=== PATIENT | female | born 1985 | race Caucasian/White ===

== ENCOUNTER 2023-12-04 16:21 | Emergency (ER) | payer MEDICARE, OTHER, SELFPAY ==
[2023-12-04 16:29] VITALS: BP 146/96
--- NOTE | 2023-12-04 19:31 | ED.GENMED ---
History of Present Illness
General
Chief Complaint: Skin Surface Trauma
Source: patient
Exam Limitations: none
Time Seen by Provider: 12/04/23 17:57
Nursing documentation reviewed up to this point in time: agreed with
History of Present Illness
History of Present Illness:
38 y/o F
h/o crohn's on prednisone
was closing a car door and sustained skin tear laceration to R lateral lower leg
she has chronic edema in her les from the steorids so it was weeping some
tetanus is unknonwn
went to urgent care and was told to come here b nancy the wound was too extensive
pt bernal not had any distal numbness/tingling/weakness
Past History
Past History
ED Past Medical History: Other (crohns, chronic anemia, narcotic abuse) and Other (Previous seizure from narcotic as well as from Wellbutrin withdrawal, Crohn's disease, anemia, previous small bowel obstruction,)
ED Past Surgical History: Appendectomy, Bowel resection ( X5) and Other (Hernia repair X2)
Social History
Tobacco: Former smoker
Alcohol: None
Drug: Former user (on suboxone)
Personal: Single
Living: with family
Employment: Not employed
Family History
Family History: Other (Crohn's disease)
Review of Systems
Review of Systems
Allergies reviewed?: Yes
All Other Systems: Not applicable
Phy Exam
Physical Exam
Physical Exam:
GENERAL: Alert , in no apparent distress, comfortable at rest
HEAD: NCAT
CV: 2+ DP PULSES B/L
NEUROLOGICAL: Alert and oriented, no focal neuro deficits, , 5/5 strength, sensation intact, ambulation slight limp right leg
SKIN: Warm and dry, traingular shaped skin tear laceration R lateral lower leg approx 5 cm
bleeidng controlled
visible subcutaneous fat, no muscle epxosure
MUSCULOSKELETAL: lateral R lower leg laceration
mild periph edema b/
onormal sensation and strenght
normal ankle ROM
PSYCH: Normal and appropriate interaction.
Course
Orders/Labs/Results
Orders:
Orders
12/04/23 19:34
Tetanus/Diphth/Acelpertussis [Adacel] 0.5 ml IM .ONCE ONE
Vital Signs
Initial and Last Documented VS:
Initial Vital Signs
Temp Pulse Resp BP Pulse Ox
98.3 F 112 20 146/96 99
12/04/23 16:29 12/04/23 16:29 12/04/23 16:29 12/04/23 16:29 12/04/23 16:29
Last Documented Vital Signs
Temp Pulse Resp BP Pulse Ox
98.3 F 84 18 124/82 98
12/04/23 16:29 12/04/23 19:51 12/04/23 19:51 12/04/23 19:51 12/04/23 19:51
Procedures
Laceration Closure
Right Lower Leg:
Status of Wound: clean
Description of Wound Edges: ragged and flap-poorly vascularized
Preparation: cleaned with saline
Anesthesia: 1% Lidocaine with epi
Revision/Debridement: routine- no revision
Wound exploration: explored to base- no FB and no tendon involvement
Type of Closure: layered closure
Skin Closure Material: 5-0 nylon and 5-0 vicryl
Number of sutures: 10
MDM/Problems Addressed
Differential Diagnosis Includes:
LACERATION, SKIN TEAR
MDM/Problems Addressed:
38 Y/O F
crohn's
chronic LE edema
skin tear R lower leg
subcutaneous fat exposed, some seeping
no muscle injury
was able to well approximate the flap which may or may not take because of the edema making the skin thin but bacitracin dressing applied
tetanus updated
return precautions
*Critical Care Note
Total Time (30-74mins, 75-104mins- exclusive of procedures): Not Applicable
ED Attending Note
-
Portions of this chart may have been created with voice recognition software.� Occasional wrong word or��sound alike� substitutions may have occurred due to the inherent limitations of voice recognition software.
Discharge Plan
Departure
Patient Disposition: Home (Routine Discharge)
Date of Disposition: 12/04/23
Time of Disposition: 19:33
Patient with high blood pressure during this ER visit?: No
Covid-19: Not Applicable
Discharge Problem:
Laceration of leg, right
Instructions: Laceration Repair With Stitches (DC)
Prescriptions:
No Action
prednisone 10 MG tablet
10 mg PO BID
nicotine 14 MG patch 24 hour
14 mg transdermal HS
Patient Comments:
patient changes patch every night
pantoprazole 40 MG tablet,delayed release (DR/EC)
40 mg PO DAILY
escitalopram oxalate 10 MG tablet
10 mg PO QPM
buprenorphine-naloxone 1 TAB tablet, sublingual
1.5 tab sublingual DAILY
Patient Comments:
03/31/2021: last filled 03/25/21, 45 tabs for 30 days from [facility]
calcium carbonate-vitamin D3 1 EACH tablet
1 ea PO DAILY Qty: 30 0RF
zolpidem 10 MG tablet
10 mg PO HSPRN PRN (Reason: sleep)
Patient Comments:
03/31/2021: unable to find fill on pdmp
cyanocobalamin (vitamin B-12) 1,000 MCG tablet
1,000 mcg PO DAILY
multivitamin with folic acid [Tab-A-Anna] 1 TABLET tablet
1 tab PO DAILY
medroxyprogesterone [Provera] 5 mg tablet
See Rx Instructions .ROUTE .COMPLEX Qty: 18 0RF
Rx Instructions:
5 mg orally ;take 1 tab by mouth 3 times a day for 3 days, then 1 tab by mouth 2 times a day for 3 days, then 1 tab by mouth once a day for 3 days for menstrual bleeding.
Referrals:
Petrona Chavarria MD [Family Provider] - Follow up in 10 days
Activity Restrictions/Additional Instructions:
KEEP THE WOUND CLEAN AND DRY FOR 24 HOURS
AFTER THAT YOU CAN GET IT WET IN THE BATH/SHOWER ONCE A DAY AND MAKE SURE IT IS CLEAN AND THERE IS NO DRIED BLOOD ON THE STITCHES
APPLY NEOSPORIN AND A BANDAID
THE STITCHES NEED TO BE REMOVED IN ABOUT 7-10 DAYS, SEE YOUR DOCTOR FOR THIS.
THE LAST DAY BEFORE STITCHES OUT, NO OINTMENT, LEAVE OPEN TO AIR
WATCH FOR SIGNS OF INFECTION AND RETURN NEEDED FOR PAIN, SWELLING, REDNESS, DRAINAGE, BLEEDING.
TYLENOL NEEDED FOR PAIN.
Interventions
Interventions:
*Risk Screen - Suicide Last Done: 12/04/23 16:32
*General Assessment Last Done: 12/04/23 16:32
*Neglect/Abuse Screening Last Done: 12/04/23 16:32
*ED COVID-19 Vaccine History Last Done: 12/04/23 17:00
*Nursing Disposition Last Done: 12/04/23 19:51
ED-Skin Assessment Last Done: 12/04/23 17:00
Discharge Date and Time
Discharge Date/Time: 12/04/23 19:53
Print Language: GUINEAN
[2023-12-04] MEDS: ADACEL 0.5 ML IM (19:41)
[2023-12-04 19:51] VITALS: BP 124/82
== END 2023-12-04 19:53 | disposition home or self-care (01) ==
LOC: EMR 16:21
PROVIDERS: EMERGENCY PHYSICIAN Emergency Medicine; FAMILY PHYSICIAN Family Medicine
DX: S81.811A Laceration without foreign body, right lower leg, initial encounter (principal); W22.8XXA Striking against or struck by other objects, initial encounter; Z23 Encounter for immunization; Z87.891 Personal history of nicotine dependence
CPT/HCPCS: 99282; 12002; 90471; 90715

== ENCOUNTER 2024-02-02 12:52 | Inpatient (IN) | payer MEDICARE, OTHER, SELFPAY ==
[2024-02-02] VITALS (7 sets, daily range): BP systolic 124–140; BP diastolic 78–86; BMI 23.0
[2024-02-02 10:45] LABS: HCG, Serum Qualitative Screen Negative
[2024-02-02 11:10] LABS: ALT (SGPT) 18 U/L (0-35); AST (SGOT) 20 U/L (14-36); Albumin 2.8 g/dl (3.5-5.0); Alkaline Phosphatase 44 U/L (38-126); Blood Urea Nitrogen 11 mg/dl (7-17); Calcium 5.7 mg/dl (8.4-10.2); Carbon Dioxide 25 mmol/L (22-30); Chloride 106 mmol/L (98-107); Glucose 149 mg/dl (70-99); Potassium 3.5 mmol/L (3.5-5.1); Sodium 136 mmol/L (135-145); Total Bilirubin 0.2 mg/dl (0.2-1.3); Total Protein 4.9 g/dl (6.3-8.2); eGFR > 60.00
[2024-02-02 11:26] LABS: % Basophils 0.3 % (0-2); % Eosinophils 0.6 % (0-6); % Immature Granulocytes 2.2 % (0-0.5); % Lymphocytes 4.8 % (20.5-51.1); % Monocytes 4.8 % (1.7-9.3); % Neutrophils 87.3 % (42.2-75.2); Absolute Eosinophils 0.1 10^3/uL (0-0.7); Absolute Immature Granulocytes 0.2 10^3/uL (0-0.05); Absolute Lymphocytes 0.4 10^3/uL (1.2-3.4); Absolute Monocytes 0.4 10^3/uL (0.1-0.6); Absolute Neutrophils 6.8 10^3/uL (1.4-6.5); Anisocytosis 2+; Hematocrit 29.6 % (37.0-47.0); Hemoglobin 8.9 g/dL (12.0-16.0); Mean Corp Hgb Conc. 30.1 g/dL (33.0-37.0); Mean Corpuscular Hgb 28.6 pg (27.0-31.0); Mean Corpuscular Volume 95.2 fL (81.0-99.0); Normal RBC Morphology No; Nucleated Red Blood Cells % 0 %; Platelet Count 240 10^3/uL (130-400); Red Blood Cell Count 3.11 10^6/uL (4.20-5.40); White Blood Cell Count 7.7 10^3/uL (4.8-10.8)
[2024-02-02 11:27] LABS: Ovalocytes 1+
[2024-02-02 11:28] LABS: Polychromasia 1+
[2024-02-02 11:54] LABS: Ionized Calcium 0.82 mMOL/L (1.15-1.33)
[2024-02-02 11:54] LABS: Magnesium 1.4 mg/dl (1.6-2.3); Phosphorus 0.8 mg/dl (2.5-4.5)
[2024-02-02] MEDS: CALCIUM GLUCONATE 100 IV (12:04)
--- NOTE | 2024-02-02 12:09 | ED.GENMED ---
History of Present Illness
General
Chief Complaint: Swelling
Source: patient
Time Seen by Provider: 02/02/24 10:49
History of Present Illness
History of Present Illness:
38-year-old female presenting to the emergency department for evaluation after she started experiencing bilateral lower extremity edema yesterday accompanied with diffuse body paresthesias and intermittent palpitations. Presently patient only notes
the edema and the paresthesias and palpitations are resolved. She does note that during the summertime her legs will often swell up a little bit but not as much as today. She denies any trauma. She is also denying any cough, chest pain, pleurisy,
hemoptysis, fevers or recent illnesses. Patient notes the only medication change she has had recently is recently started on an oral contraceptive. Patient takes Rinvoq and daily prednisone due to a history of Crohn's disease but notes no changes
to these medications. Patient also notes that she has been sober from substance abuse for 10 years.
Past History
Past History
ED Past Medical History: Other (crohns, chronic anemia, narcotic abuse) and Other (Previous seizure from narcotic as well as from Wellbutrin withdrawal, Crohn's disease, anemia, previous small bowel obstruction,)
ED Past Surgical History: Appendectomy, Bowel resection ( X5), Gynecological and Other (Hernia repair X2)
Social History
Tobacco: Former smoker
Alcohol: None
Drug: Former user (on suboxone)
Personal: Single
Living: with family
Employment: Not employed
Family History
Family History: Other (Crohn's disease)
Review of Systems
Review of Systems
All Other Systems: ROS reviewed and negative except as documented in HPI and ROS
Phy Exam
Physical Exam
Physical Exam:
GENERAL: Alert , in no apparent distress
EYE: clear conjunctiva b/l
HEAD: NCAT
ENT: o/p clr, mmm.
CARDIAC: Regular rate and rhythm, no murmur .
LUNGS: Clear breath sounds bilaterally, no acute respiratory distress, no wheezes/rales/rhonchi
ABDOMEN: Soft, without focal tenderness, no r/g, no cvat
NEUROLOGICAL: Alert and oriented
SKIN: Warm and dry, skin intact.
MUSCULOSKELETAL: 2+ pitting edema to the knees, well perfused.
PSYCH: Normal and appropriate interaction.
Scores
Heart Failure Risk
Heart Failure Risk Score: Not Applicable
Heart Score for Chest Pain Patients
STEMI patient?: Not applicable
Withdrawal Assessment of Alcohol
Withdrawal Assessment Completed?: Not applicable
Course
Orders/Labs/Results
Orders:
Orders
02/02/24 10:13
Test Result ONCE
02/02/24 10:14
EKG [Electrocardiogram (*1)] Urgent
Reason for Study: Palpitations
EKG- Treatment ONCE
02/02/24 10:23
CBC/With Diff [Complete Blood Count/With Diff] Urgent
Comprehensive Metabolic Panel Urgent
HCG, Serum Qualitative Screen Urgent
Magnesium Urgent
Comment: ADD ON
Phosphorus Urgent
Comment: ADD ON
TSH Urgent
02/02/24 11:21
Add On- LAB Urgent
Tests Added?: magnesium, phosphorous
02/02/24 11:44
Ionized Calcium Urgent
Peripheral Venous Lwr Ext Bilat US [US Periph Venous LOWER Ext Ritesh] Urgent
Comment:
Reason For Exam: edema
02/02/24 11:45
Calcium Gluconate 2 gram/100mL [Calcium Gluconate] 2 gram in 100 ml IV ONCE
02/02/24 11:46
NT-proBNP Urgent
02/02/24 12:08
Urinalysis Reflex To Culture Urgent
Date Specimen was Collected: 02/02/24
Time Specimen was Collected: 12:04
02/02/24 12:12
Magnesium Sulfate 1 G/D5w [Magnesium Sulfate] 1 gm in 100 ml IV NOW
02/02/24 12:32
Consult Nephrology [NEPHROLOGY CONSULT] Routine
Consulting Provider: Mika Clemente
Was physician already notified: Yes
Reason for consult: hypocalcemia, hypomag, phyophos, chron anemia
02/02/24 12:34
Admit/Transfer Patient As Directed
Co-Sign Provider:
Level of Care: Inpatient admission
Assign to:: Telemetry
Physician / Group: binu rose
Diagnosis: hypocalcemia, hypophos, hypomag, chron anemia
Reason for Telemetry: Arrhythmia
Date to Stop Telemetry: 02/05/24
Time to Stop Telemetry: 11:00
Reason for Hospitalization: hypocalcemia, hypophos, hypomag, chron anemia
Expected length of stay greater than two midnights?: Yes
ELOS- Estimated Length of Stay in days: 5
I certify the patient meets the requirements for IP care: Yes
Code Status As Directed
Resuscitation Status: Full Code
02/02/24 12:37
PRN Pain Medication Management As Directed
May give lesser potent ordered pain med per pt: Yes
preference::
Protocol:: Medication orders for pain may be administered in a
manner that supports deferring to patient preference
when the pt is:
- Requesting an ordered lesser potent pain medication.
Least to most potent pain medications are defined
as: acetaminophen < NSAID < tramadol < opioids
(morphine, oxycodone, hydromorphone).
- Requesting a lesser dose of the same medication IF
ORDERED.
- Requesting a less intrusive route of administration
if both routes are prescribed by the provider (PO <
IV).
02/02/24 14:10
Ondansetron Orally Disint [Zofran Odt (Orally Disintegrating)] 4 mg PO Q6HPRN PRN
02/02/24 14:10
Activity As Directed
Activity Level: As Tolerated
Intake/ Output As Directed
Frequency: Per unit guidelines
Vital Signs As Directed
Frequency: Per unit guidelines
Weight As Directed
Frequency: Daily
DX Deep Vein Thrombosis Video Routine
02/02/24 Dinner
Regular
At Your Request: Full Participation
Buprenorphine [Subutex] 0.5 mg SL DAILY@1500
02/02/24 18:00
Enoxaparin Sodium [Lovenox] 40 mg SC QPM
Escitalopram Oxalate [Lexapro] 10 mg PO QPM
02/02/24 20:00
Pantoprazole [Protonix] 40 mg PO BID
Prednisone [Deltasone] 5 mg PO BID
02/02/24 22:00
Nicotine [Nicoderm Transdermal] 14 mg TRANSDERM HS
norgestimate-ethinyl estradiol 1 tablet PO HS
upadacitinib [Rinvoq] See Dose Instructions PO HS
02/03/24 06:19
Complete Blood Count/With Diff IN AM
Comprehensive Metabolic Panel IN AM
Magnesium IN AM
Phosphorus IN AM
02/03/24 08:00
Buprenorphine [Subutex] 8 mg SL DAILY
Multivitamin [Theragran] 1 tablet PO DAILY
02/04/24 05:57
Complete Blood Count/With Diff IN AM
Comprehensive Metabolic Panel IN AM
Phosphorus IN AM
02/05/24 07:10
Complete Blood Count/With Diff IN AM
Comprehensive Metabolic Panel IN AM
02/05/24 11:00
DC Protocol for Telemetry ONCE
02/06/24 06:00
Complete Blood Count/With Diff IN AM
Comprehensive Metabolic Panel IN AM
02/07/24 06:00
Complete Blood Count/With Diff IN AM
Comprehensive Metabolic Panel IN AM
02/07/24 08:00
Ergocalciferol [Drisdol (Vitamin D2)] 50,000 units PO WE
02/25/24 08:00
Cyanocobalamin 1,000 mcg IM Q30D@0800
Abnormal Lab Results
02/02/24 02/02/24 02/02/24
10:23 11:44 12:08
RBC 3.11 L 10^6/uL
(4.20-5.40)
Hgb 8.9 L g/dL
(12.0-16.0)
Hct 29.6 L %
(37.0-47.0)
MCHC 30.1 L g/dL
(33.0-37.0)
Abs Immat Gran (auto) 0.2 H 10^3/uL
(0-0.05)
Absolute Neuts (auto) 6.8 H 10^3/uL
(1.4-6.5)
Absolute Lymphs (auto) 0.4 L 10^3/uL
(1.2-3.4)
Immature Gran % 2.2 H %
(0-0.5)
Neutrophils % 87.3 H %
(42.2-75.2)
Lymphocytes % 4.8 L %
(20.5-51.1)
Creatinine 0.4 L mg/dL
(0.6-1.0)
Glucose 149 H mg/dl
(70-99)
Calcium 5.7 L* mg/dl
(8.4-10.2)
Ionized Calcium 0.82 L mMOL/L
(1.15-1.33)
Phosphorus 0.8 L* mg/dl
(2.5-4.5)
Magnesium 1.4 L mg/dl
(1.6-2.3)
Total Protein 4.9 L g/dl
(6.3-8.2)
Albumin 2.8 L g/dl
(3.5-5.0)
PTH Intact 188.8 H pg/ml
(13.6-85.8)
Urine Glucose 1+ A
(Negative)
02/02/24 10:23
02/02/24 10:23
Vital Signs
Initial and Last Documented VS:
Initial Vital Signs
Temp Pulse Resp BP Pulse Ox
97.7 F 86 16 130/86 98
02/02/24 10:10 02/02/24 10:10 02/02/24 10:10 02/02/24 10:10 02/02/24 10:10
Last Documented Vital Signs
Temp Pulse Resp BP Pulse Ox
98.7 F 91 20 123/76 96
02/05/24 11:39 02/05/24 11:39 02/05/24 11:39 02/05/24 11:39 02/05/24 11:39
MDM/Problems Addressed
Differential Diagnosis Includes:
DVT considered given new OCP use, electrolyte derangement, cardiomyopathy,
MDM/Problems Addressed:
38-year-old female presenting to the emergency department for evaluation after noticing full body paresthesias yesterday, continued today as well as bilateral lower extremity edema. History of substance abuse but noted to be sober for 10 years.
Question cardiomyopathy as cause for edema. Question electrolyte disturbance for cause of diffuse body paresthesias. Patient is otherwise hemodynamically stable. Disposition pending.
*Pulse Oximetry
Patient hypoxic: no
*EKG
Interpreted by ED Provider?: Yes
Heart Rate: 78
Rate: normal
Rhythm: sinus
Beggs: normal axis
Ischemia: no ischemia
*Phlebotomy Director Interpretation
Rate: normal
Rhythm: sinus
*Critical Care Note
Total Time (30-74mins, 75-104mins- exclusive of procedures): 30
comment:
Critical care statement: A total of 30 minutes of critical care time was provided for this patient. This includes management of unstable vital signs, evaluation of the patient at bedside, reviewing the patient's pertinent medical records, discussion
with consultants, review of old EKGs and review of pertinent medical records. This time with separate from time utilized to perform the aforementioned documented procedures
Data Reviewed
Review of Other/Old Records Reveals: Labs and Records
Patient Management
Discussion with other providers: Hospitalist
Escalation/DeEscalation of care consider admission/obs:
Patient has a critical calcium of 5.7, phosphorus of 0.8 and magnesium of 1.4. Labs added including ionized calcium, parathyroid hormone, TSH, urinalysis. Ultrasound of the lower extremities pending. Hospitalist team accepts for continued
evaluation and treatment. IV magnesium and calcium repletion ordered.
ED Attending Note
-
Portions of this chart may have been created with voice recognition software.� Occasional wrong word or��sound alike� substitutions may have occurred due to the inherent limitations of voice recognition software.
Discharge Plan
Departure
Patient Disposition: Admit
Date of Disposition: 02/02/24
Time of Disposition: 12:09
Presentation/result/management discussed w/ accepting MD/DO: Hospitalist
Discharge Problem:
Hypocalcemia, Anemia, Hypomagnesemia, Hypophosphatemia
Interventions
Interventions:
*Risk Screen - Suicide Last Done: 02/02/24 10:10
*General Assessment Last Done: 02/02/24 10:10
*Neglect/Abuse Screening Last Done: 02/02/24 10:10
ED- Fall Risk Assessment Last Done: 02/02/24 11:16
*Nursing Disposition Last Done: 02/02/24 14:05
ED- Cardiac Assessment Last Done: 02/02/24 11:16
ED- Pulmonary Assessment Last Done: 02/02/24 11:16
ED-Skin Assessment Last Done: 02/02/24 11:16
Discharge Date and Time
Discharge Date/Time: 02/02/24 14:05
[2024-02-02 12:16] LABS: TSH 1.21 uIU/ml (0.47-4.68)
[2024-02-02 12:19] LABS: NT-proBNP 140 pg/ml
--- NOTE | 2024-02-02 12:29 | HPS.HSE ---
Family Physician
-
Family Physician: Petrona Chavarria
Chief Complaint
-
- b/l Alvarez sweliing for last 2 days
- pins and needle sensation every where
History of Present Illness
35F HX stricturing small bowel and colonic Crohn for years, s/p 5 small bowel resections known to Ken jernigan ([facility])
- b/l Alvarez swelling for last 2 days
- pins and needle sensation every where
- Fast HR at times
Medical History
Past Medical History
Past Medical History: Reports Other
Additional Past Medical History:
Crohn
Previous seizure from narcotic as well as from Wellbutrin withdrawal
Anemia
Past Surgical History: Reports Appendectomy and Bowel Resection ( Bowel resection ( X5))
Additional Past Surgical History:
Hernia repair X2
Social History
Tobacco: Former Smoker
Alcohol: None
Personal: Single
Living: With Family
Family History
Family History: Not pertinent
Allergies / Home Medications
Allergies reflects when Allergies were last updated in [facility].
Home Medications with original date entered in [facility]
Allergy/Medication List:
Allergies
Allergy/AdvReac Type Severity Reaction Status Date / Time
iron [From Venofer] Allergy Shortness Verified 02/02/24 10:09
of Breath
Home Medications
escitalopram oxalate 10 mg tablet 10 mg PO QPM Mental Health/Anxiety 04/18/20
nicotine 14 mg/24 hr daily transdermal patch 14 mg transdermal HS Smoking cessation 04/18/20
pantoprazole 40 mg tablet,delayed release 40 mg PO BID Gastrointestinal issue 04/18/20
prednisone 10 mg tablet 6 mg PO BID Crohn's disease 04/18/20
multivitamin with folic acid 400 mcg tablet (Tab-A-Anna) 1 tab PO DAILY Supplement 03/31/21
buprenorphine 8 mg-naloxone 2 mg sublingual tablet 0.5 tab sublingual DAILY@1500 02/02/24
buprenorphine 8 mg-naloxone 2 mg sublingual tablet 1 tab sublingual DAILY 02/02/24
cyanocobalamin (vitamin B-12) 1,000 mcg/mL injection solution 1,000 mcg IM QMONTH 02/02/24
ergocalciferol (vitamin D2) 1,250 mcg (50,000 unit) capsule (Vitamin D2) 1,250 mcg PO WE 02/02/24
norgestimate 0.25 mg-ethinyl estradiol 35 mcg tablet 1 tab PO HS 02/02/24
ondansetron 4 mg disintegrating tablet 4 mg PO Q6HPRN PRN nausea 02/02/24
upadacitinib 30 mg tablet,extended release 24 hr (Rinvoq) 30 mg PO HS 02/02/24
Review of Systems
-
Constitutional: Reports No Symptoms
EENT: Reports No Symptoms
Respiratory: Reports No Symptoms
Cardiac: Reports Palpitations
Abdomen/GI: Reports No Symptoms
: Reports No Symptoms
Musculoskeletal: Reports No Symptoms
Skin: Reports No Symptoms
Neurological: Reports Numbness (diffuse paresthesia )
Endocrine: Reports No Symptoms
Hematologic/Lymphatic: Reports No Symptoms
Psych: Reports No Symptoms
Physical Exam
Vital Signs
Vital Signs
Temp Pulse Resp BP Pulse Ox
97.7 F 83 21 131/83 97
02/02/24 10:10 02/02/24 11:45 02/02/24 11:45 02/02/24 11:14 02/02/24 11:45
Physical Exam
General: Well Developed, Well Nourished and No Apparent Distress
HEENT: NormoCephalic, Moist mucous membranes and Atraumatic
Respiratory: Clear
Cardiac: S1/S2 and Regular Rhythm; No Murmur or Rub
GI: Soft, Non Tender, Non Distended and Normal Bowel Sounds; No Organomegaly
Rectal: Deferred by Provider
Musculoskeletal: No Clubbing, No Cyanosis, Edema, Left Lower Extremity and Edema, Right Lower Extremity
Skin: No Rash
Neuro: AO x 3 and Nonfocal/grossly intact
Laboratory Results
-
02/02/24 10:23
02/02/24 10:23
Laboratory Results
Total Bilirubin 0.2 mg/dl (0.2-1.3) 02/02/24 10:23
AST 20 U/L (14-36) 02/02/24 10:23
ALT 18 U/L (0-35) 02/02/24 10:23
Alkaline Phosphatase 44 U/L (38-126) 02/02/24 10:23
Data Reviewed
-
Ultrasound: Other (pending Alvarez US )
Medical Tests (Nuc Med, Echo, EKG etc): Report Reviewed by me
Lab Data: Labs Reviewed by me
Old Records: Reviewed
Impression/Plan
-
Vital Signs
Temp Pulse Resp BP Pulse Ox
97.7 F 83 15 131/83 97
02/02/24 10:10 02/02/24 11:45 02/02/24 12:00 02/02/24 11:14 02/02/24 11:45
Laboratory Tests
02/02/24 02/02/24 02/02/24
10:23 11:44 11:46
WBC 7.7
MCV 95.2
Plt Count 240
Sodium 136
Potassium 3.5
Creatinine 0.4 L
eGFR > 60.00
Glucose 149 H
Calcium 5.7 L*
Ionized Calcium 0.82 L
Phosphorus 0.8 L*
Magnesium 1.4 L
Total Bilirubin 0.2
AST 20
ALT 18
Alkaline Phosphatase 44
[id number] Pept Pending
Albumin 2.8 L
TSH Pending
HCG, Qual Negative
PTH Intact Pending
EKG
NORMAL SINUS RHYTHM
NORMAL ECG
WHEN COMPARED WITH ECG OF 20-AUG-2021 15:42,
NO SIGNIFICANT CHANGE WAS FOUND
Confirmed by FRANCISCA COULTER JORGE ([id number]) on 02/02/2024 11:22:23 AM
Last hospitalist admission: DATE OF ADMISSION: 03/31/2021 - DATE OF DISCHARGE: 04/01/2021
DISCHARGE DIAGNOSIS:
1. Symptomatic anemia.
2. History of iron deficiency and B12 deficiency due to malabsorption.
3. History of Crohn's disease.
4. History of narcotic abuse, on Suboxone.
5. History of tobacco use.
ASSESSMENT & PLAN
Symptomatic Hypocalcemia s/p 2 gm of IV Calcium : Noted corrected Ca for Albumin 2.8 is 6.7
Hypophosphatemia
Hypomagnesemia s/p 1 gm pg IV Mg
Hypalbuminemia suspect GI loss
Associated diffuse paraesthesia
- suspect GI loss : ? malabsorption syndrome due to multiple SB small bowel resections due to Crohn
- Pending iPTH and TSH
- Correct Ca, Mg, Phos as needed
- Renal and GI consult
Chr normocytic Anemia
- stable Hgb at 8s
- Observe Hgb
b/l Alvarez swelling for last 2 days
- pending B/L Alvarez US
- Unremarkable pro BNP (140)
HX Crohn's stable on chronic prednisone and Rinovoq 30mg HS
GERD
- on PO PPI
Depression
- on Escitalopram 10mg qpm
Hx Former Narcotic Abuse
- on Suboxone
Hx Tobacco Use
DVT ppx with SCDs
Full code
IP TLM
[2024-02-02 12:37] LABS: Urine Albumin Negative (Neg - Trace); Urine Bilirubin Negative (Negative); Urine Character Clear (Clear); Urine Color Yellow; Urine Glucose 1+ (Negative); Urine Ketone Negative (Negative); Urine Leukocyte Negative (Negative); Urine Nitrite Negative (Negative); Urine Occult Blood Negative (Negative); Urine Urobilinogen Negative (Neg - 1+); Urine pH 6.5 (5.0-9.0)
[2024-02-02] MEDS: MAGNESIUM SULFATE 100 IV (13:19)
[2024-02-02] MEDS: SUBUTEX 4 MG SL (15:29)
[2024-02-02] MEDS: POTASSIUM PHOSPHATE 256.4773 MEQ IV (16:41)
--- NOTE | 2024-02-02 16:56 | W.CON.NEPH ---
Consultation
-
Date/Time Consultation Requested: 02/02/2024 at 12:30 PM
Date/Time Consultation Performed: at 4 PM
Requesting Provider: Tarah BERGER
Performing Provider: Dr. Mika Clemente
Reason for Consultation: electrolyte abnormalities
Medical History
-
Chief Complaint: electrolyte abnormalities lower extremity edema
History of Present Illness:
38-year-old female presenting to the emergency department for evaluation after she started experiencing bilateral lower extremity edema yesterday accompanied with diffuse body paresthesias and intermittent palpitations. She is found to have
significant electrolyte abnormalities including calcium of 5.7Phosphorus 0.8 and magnesium of 1.4
real consultation for these electrolyte abnormalities
she also complains of increased lower extremity edema in the last 48 hours which is never been like this in the past.
Recently in the last six months or so started rinvoq for her Crohn's disease
Past Medical History
Crohn's diseaseAnemia, multiple bowel resections , hernia repair
Social History
former smoker
Family History
no renal disease
Allergies / Home Medications
Allergy/AdvReac Type Severity Reaction Status Date / Time
iron [From Venofer] Allergy Shortness Verified 02/02/24 10:09
of Breath
�Medication �Instructions �Recorded �Confirmed �Type
escitalopram oxalate 10 mg tablet 10 mg PO QPM Mental Health/Anxiety 04/18/20 02/02/24 History
nicotine 14 mg/24 hr daily 14 mg transdermal HS Smoking 04/18/20 02/02/24 History
transdermal patch cessation
pantoprazole 40 mg tablet,delayed 40 mg PO BID Gastrointestinal issue 04/18/20 02/02/24 History
release
prednisone 10 mg tablet 6 mg PO BID Crohn's disease 04/18/20 02/02/24 History
multivitamin with folic acid 400 1 tab PO DAILY Supplement 03/31/21 02/02/24 History
mcg tablet (Tab-A-Anna)
buprenorphine 8 mg-naloxone 2 mg 0.5 tab sublingual DAILY@1500 02/02/24 02/02/24 History
sublingual tablet
buprenorphine 8 mg-naloxone 2 mg 1 tab sublingual DAILY 02/02/24 02/02/24 History
sublingual tablet
cyanocobalamin (vitamin B-12) 1,000 mcg IM QMONTH 02/02/24 02/02/24 History
1,000 mcg/mL injection solution
ergocalciferol (vitamin D2) 1,250 1,250 mcg PO WE 02/02/24 02/02/24 History
mcg (50,000 unit) capsule (Vitamin
D2)
norgestimate 0.25 mg-ethinyl 1 tab PO HS 02/02/24 02/02/24 History
estradiol 35 mcg tablet
ondansetron 4 mg disintegrating 4 mg PO Q6HPRN PRN nausea 02/02/24 02/02/24 History
tablet
upadacitinib 30 mg tablet,extended 30 mg PO HS 02/02/24 02/02/24 History
release 24 hr (Rinvoq)
Review of Systems
-
edema, numbness tingling of her extremities
All other systems: Negative unless noted
Physical Exam
Vital Signs
Vital Signs
Temp Pulse Resp BP Pulse Ox
97.8 F 79 18 140/85 99
02/02/24 14:22 02/02/24 14:22 02/02/24 14:22 02/02/24 14:22 02/02/24 14:22
Lab Results
WBC 7.7 10^3/uL (4.8-10.8) 02/02/24 10:23
RBC 3.11 10^6/uL (4.20-5.40) L 02/02/24 10:23
Hgb 8.9 g/dL (12.0-16.0) L 02/02/24 10:23
Hct 29.6 % (37.0-47.0) L 02/02/24 10:23
Plt Count 240 10^3/uL (130-400) 02/02/24 10:23
Sodium 136 mmol/L (135-145) 02/02/24 10:23
Potassium 3.5 mmol/L (3.5-5.1) 02/02/24 10:23
Chloride 106 mmol/L (98-107) 02/02/24 10:23
Carbon Dioxide 25 mmol/L (22-30) 02/02/24 10:23
BUN 11 mg/dl (7-17) 02/02/24 10:23
Creatinine 0.4 mg/dL (0.6-1.0) L 02/02/24 10:23
eGFR > 60.00 02/02/24 10:23
Glucose 149 mg/dl (70-99) H 02/02/24 10:23
Calcium Cancelled 02/02/24 11:21
Phosphorus 0.8 mg/dl (2.5-4.5) L* 02/02/24 10:23
Puu-Q-Iahtjvysqay Pept 140 pg/ml 02/02/24 11:46
Albumin 2.8 g/dl (3.5-5.0) L 02/02/24 10:23
Physical Exam
General no acute distress
HEENT no cephalic atraumatic extraocular muscle intact no scleral icterus no JVD neck supple
lungs clear to auscultation bilateral
heart regular S1-S2 positive
abdomen soft nontender positive bowel sounds
extremities +2 edema bilateral
Neurologically nonfocal alert and oriented x 3
Skin no lesions no abrasions no petechiae
Psych normal affect no bizarre behavior
Data Reviewed
-
Radiology: Image Personally Visualized and interpreted (No DVT lower extremity ultrasound)
Assessment/Plan
-
38-year-old female presenting to the emergency department for evaluation after she started experiencing bilateral lower extremity edema yesterday accompanied with diffuse body paresthesias and intermittent palpitations. She is found to have
significant electrolyte abnormalities including calcium of 5.7Phosphorus 0.8 and magnesium of 1.4
Recently in the last six months or so started rinvoq for her Crohn's disease
electrolyte abnormalities including hypokalemia
hypocalcemia=5.7 corrected to 6.7
hypoMag
acute lower extremity edema
Crohn's disease
hypoalbumin=2.8
plan:
Urinalysis negative for protein ruling out nephrotic syndrome
check the PTH, vitamin D
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
avoid Lasix at this time with lower extremity edema void further hypocalcemia
Sodium restriction in the setting of edema
[2024-02-02] MEDS: LEXAPRO 10 MG PO (17:27)
[2024-02-02] MEDS: PROTONIX 40 MG PO (20:09)
[2024-02-02] MEDS: DELTASONE 1 MG PO (20:09)
[2024-02-02] MEDS: DELTASONE 5 MG PO (20:09)
[2024-02-02] MEDS: NICODERM TRANSDERMAL 14 MG TRANSDERM (22:21)
[2024-02-03 03:20] VITALS: BP 111/61
[2024-02-03 07:15] LABS: % Basophils 0.4 % (0-2); % Eosinophils 1.2 % (0-6); % Immature Granulocytes 2.1 % (0-0.5); % Lymphocytes 8.1 % (20.5-51.1); % Monocytes 9.7 % (1.7-9.3); % Neutrophils 78.5 % (42.2-75.2); Absolute Eosinophils 0.1 10^3/uL (0-0.7); Absolute Immature Granulocytes 0.1 10^3/uL (0-0.05); Absolute Lymphocytes 0.4 10^3/uL (1.2-3.4); Absolute Monocytes 0.5 10^3/uL (0.1-0.6); Absolute Neutrophils 4.1 10^3/uL (1.4-6.5); Hematocrit 29.8 % (37.0-47.0); Hemoglobin 8.6 g/dL (12.0-16.0); Mean Corp Hgb Conc. 28.9 g/dL (33.0-37.0); Mean Corpuscular Hgb 27.6 pg (27.0-31.0); Mean Corpuscular Volume 95.5 fL (81.0-99.0); Nucleated Red Blood Cells % 0 %; Platelet Count 209 10^3/uL (130-400); Red Blood Cell Count 3.12 10^6/uL (4.20-5.40); Red Cell Dist. Width 25.9 % (11.5-14.5); White Blood Cell Count 5.2 10^3/uL (4.8-10.8)
[2024-02-03 07:16] LABS: ALT (SGPT) 15 U/L (0-35); AST (SGOT) 14 U/L (14-36); Albumin 2.5 g/dl (3.5-5.0); Alkaline Phosphatase 43 U/L (38-126); Blood Urea Nitrogen 7 mg/dl (7-17); Calcium 6.3 mg/dl (8.4-10.2); Carbon Dioxide 28 mmol/L (22-30); Chloride 108 mmol/L (98-107); Estimated Creatinine Clearance 100 ml/min; Glucose 97 mg/dl (70-99); Magnesium 1.9 mg/dl (1.6-2.3); Phosphorus 1.6 mg/dl (2.5-4.5); Potassium 3.9 mmol/L (3.5-5.1); Sodium 137 mmol/L (135-145); Total Bilirubin < 0.1 mg/dl (0.2-1.3); Total Protein 4.6 g/dl (6.3-8.2); eGFR > 60.00
[2024-02-03 07:21] LABS: Vitamin D, 25-OH*** < 12.8 ng/mL (30-80)
[2024-02-03 07:55] VITALS: BP 127/87
--- NOTE | 2024-02-03 08:00 | PTCARENOTE ---
Made Dr. Rai aware of pt's critical Calcium level this am of 6.3.
[2024-02-03] MEDS: THERAGRAN 1 TABLET PO (08:50)
[2024-02-03] MEDS: DELTASONE 1 MG PO ×2 (08:50→20:20)
[2024-02-03] MEDS: DELTASONE 5 MG PO ×2 (08:50→20:20)
[2024-02-03] MEDS: PROTONIX 40 MG PO ×2 (08:50→20:20)
[2024-02-03] MEDS: SUBUTEX 8 MG SL (08:50)
[2024-02-03 09:33] LABS: Intact PTH 265.6 pg/ml (13.6-85.8)
[2024-02-03 09:57] LABS: Intact PTH 188.8 pg/ml (13.6-85.8)
--- NOTE | 2024-02-03 10:13 | W.PN.NEPH.PH ---
Today's Communication / Plan
-
Added vitamin D and calcium carbonate p.o.
Assessment/Plan
-
38-year-old female presenting to the emergency department for evaluation after she started experiencing bilateral lower extremity edema yesterday accompanied with diffuse body paresthesias and intermittent palpitations. She is found to have
significant electrolyte abnormalities including calcium of 5.7Phosphorus 0.8 and magnesium of 1.4
Recently in the last six months or so started rinvoq for her Crohn's disease
electrolyte abnormalities including hypokalemia
hypocalcemia=5.7 corrected to 6.7
hypoMag
acute lower extremity edema
Crohn's disease
hypoalbumin=2.8
plan:
Urinalysis negative for protein ruling out nephrotic syndrome
check the PTH, vitamin D= PTH 265, vitamin D 25 OH less than 12, calcium improved corrected to 7.5 for albumin
avoid Lasix at this time with lower extremity edema void further hypocalcemia for now/minimal proteinuria not contributing to her hypoalbuminemia
Sodium restriction in the setting of edema
I will add vitamin D as well as calcium carbonate p.o. to be taken not with meals as this will lower phosphorus
-
-
Date of Service: February 03, 2024
CC / HPI / ROS
-
Chief Complaint:
Electrolyte abnormalities with lower extremity edema
History of Present Illness:
Presents with increasing lower extremity edema with history of chron's disease and electrolyte abnormalities
Review of Systems:
No chest pain or shortness of breath
Labs
-
Labs:
WBC 5.2 10^3/uL (4.8-10.8) 02/03/24 06:19
RBC 3.12 10^6/uL (4.20-5.40) L 02/03/24 06:19
Hgb 8.6 g/dL (12.0-16.0) L 02/03/24 06:19
Hct 29.8 % (37.0-47.0) L 02/03/24 06:19
Plt Count 209 10^3/uL (130-400) 02/03/24 06:19
Sodium 137 mmol/L (135-145) 02/03/24 06:19
Potassium 3.9 mmol/L (3.5-5.1) 02/03/24 06:19
Chloride 108 mmol/L (98-107) H 02/03/24 06:19
Carbon Dioxide 28 mmol/L (22-30) 02/03/24 06:19
BUN 7 mg/dl (7-17) 02/03/24 06:19
Creatinine 0.5 mg/dL (0.6-1.0) L 02/03/24 06:19
eGFR > 60.00 02/03/24 06:19
Glucose 97 mg/dl (70-99) 02/03/24 06:19
Calcium 6.3 mg/dl (8.4-10.2) L* 02/03/24 06:19
Calcium Cancelled 02/03/24 06:19
Phosphorus 1.6 mg/dl (2.5-4.5) L 02/03/24 06:19
Bcf-R-Xmuepchedhk Pept 140 pg/ml 02/02/24 11:46
Albumin 2.5 g/dl (3.5-5.0) L 02/03/24 06:19
Physical Exam
-
Vital Signs:
Vital Signs
Temp Pulse Resp BP Pulse Ox
98.1 F 79 16 127/87 97
02/03/24 07:55 02/03/24 07:55 02/03/24 07:55 02/03/24 07:55 02/03/24 07:55
Respiratory:: Bilateral: CTA
Lung Excursion:: Normal
Abdomen:: Soft
Bowel Sounds:: Normal
Extremity Edema:: +3: Bilateral:
Mireles Catheter: No
[2024-02-03 10:24] LABS: Ionized Calcium 0.95 mMOL/L (1.15-1.33)
[2024-02-03] MEDS: SODIUM PHOSPHATE 255 MEQ IV ×2 (10:32→18:53)
[2024-02-03] MEDS: CALCIUM GLUCONATE 1000 MG IV (10:33)
[2024-02-03] MEDS: FLUSH (NSS) 2 FLUSH IV (10:37)
[2024-02-03 10:52] VITALS: BMI 26.0
[2024-02-03 11:37] VITALS: BP 116/69
--- NOTE | 2024-02-03 14:50 | W.PN.HOSP.TC ---
Today's Communication/Plan
-
Electrolyte repletion
Vitamin D supplementation
Calcium carbonate p.o. with meals
Assessment / Plan
Assessment / Plan
General: Well Developed, Well Nourished and No Apparent Distress
HEENT: NormoCephalic, Moist mucous membranes and Atraumatic
Respiratory: Clear
Cardiac: S1/S2 and Regular Rhythm; No Murmur or Rub
GI: Soft, Non Tender, Non Distended and Normal Bowel Sounds; No Organomegaly
Rectal: Deferred by Provider
Musculoskeletal: No Clubbing, No Cyanosis, Edema, Left Lower Extremity and Edema, Right Lower Extremity
Skin: No Rash
Neuro: AO x 3 and Nonfocal/grossly intact
Symptomatic Hypocalcemia, associated diffuse paresthesia�improving, mostly resolved
#Hypophosphatemia
-Suspect secondary to vitamin D deficiency
� Electrolyte repletion
�Vitamin D supplementation
� Calcium carbonate p.o. with meals
� Follow-up PTH
� Avoid diuretics at this time due to hypocalcemia
� Renal involved
� Renal will take into consideration IV iron and possible secondary effects
#Lower extremity edema
� Sodium restriction
� Suspect secondary to low albumin state
� Urinalysis negative for protein ruling out nephrotic syndrome
� Educated on increasing protein intake
Hypomagnesemia
�Monitor and replete
Hypalbuminemia
� Most likely for torsion secondary to Crohn's
� Advised on increasing protein intake
Follow GI outpatient
Chr normocytic Anemia
- stable Hgb at 8s
- Observe Hgb
HX Crohn's stable on chronic prednisone and Rinovoq 30mg HS
GERD
- on PO PPI
Depression
- on Escitalopram 10mg qpm
Hx Former Narcotic Abuse
- on Suboxone
Hx Tobacco Use
DVT ppx with Lovenox
Full code
IP TLM
Anticipated Discharge: Within 24 hours
Subjective/Interval History
-
Date of Service: February 03, 2024
Tingling is improved
Objective Data
-
Labs:
Laboratory Results
02/03/24 02/03/24
06:19 06:19
WBC 5.2
Hgb 8.6 L
Hct 29.8 L
Plt Count 209
Sodium 137
Potassium 3.9
Chloride 108 H
Carbon Dioxide 28
BUN 7
Creatinine 0.5 L
Glucose 97
Calcium 6.3 L* Cancelled
Total Bilirubin < 0.1 L
AST 14
ALT 15
Alkaline Phosphatase 43
Vital Signs:
Vital Signs
Temp Pulse Resp BP Pulse Ox
98.4 F 84 16 116/69 97
02/03/24 11:37 02/03/24 11:37 02/03/24 11:37 02/03/24 11:37 02/03/24 11:37
I&O
02/02/24 02/03/24 02/04/24
06:59 06:59 06:59
Intake Total 480 / 480
Balance 480 / 480
Review of Systems
-
History Source: Patient
All other systems: Not reviewed unless documented
Data Reviewed
-
Ultrasound: Report Reviewed by me
Labs: Labs Reviewed by me
[2024-02-03] MEDS: DRISDOL (VITAMIN D2) 50000 UNITS PO (14:55)
[2024-02-03 15:30] VITALS: BP 125/76
[2024-02-03] MEDS: SUBUTEX 4 MG SL (16:14)
[2024-02-03 16:35] LABS: Phosphorus 1.7 mg/dl (2.5-4.5)
[2024-02-03] MEDS: LEXAPRO 10 MG PO (18:54)
[2024-02-03 19:29] VITALS: BP 111/59
[2024-02-03] MEDS: OSCAL CAL 500 1000 MG PO (20:20)
[2024-02-03] MEDS: TYLENOL 650 MG PO (20:23)
[2024-02-03] MEDS: NICODERM TRANSDERMAL 14 MG TRANSDERM (22:03)
[2024-02-03 23:57] VITALS: BP 119/67
[2024-02-04 01:13] LABS: Phosphorus 1.5 mg/dl (2.5-4.5)
[2024-02-04] MEDS: SODIUM PHOSPHATE 255 MEQ IV ×2 (02:33→10:21)
[2024-02-04 03:53] VITALS: BP 118/77
[2024-02-04 06:00] VITALS: BMI 25.7
[2024-02-04 07:48] LABS: ALT (SGPT) 15 U/L (0-35); AST (SGOT) 14 U/L (14-36); Albumin 2.6 g/dl (3.5-5.0); Alkaline Phosphatase 42 U/L (38-126); Blood Urea Nitrogen 9 mg/dl (7-17); Calcium 6.8 mg/dl (8.4-10.2); Carbon Dioxide 26 mmol/L (22-30); Chloride 105 mmol/L (98-107); Estimated Creatinine Clearance 100 ml/min; Glucose 96 mg/dl (70-99); Phosphorus 2.3 mg/dl (2.5-4.5); Potassium 4.1 mmol/L (3.5-5.1); Sodium 136 mmol/L (135-145); Total Bilirubin < 0.1 mg/dl (0.2-1.3); Total Protein 4.9 g/dl (6.3-8.2); eGFR > 60.00
[2024-02-04 07:55] VITALS: BP 123/78
[2024-02-04] MEDS: THERAGRAN 1 TABLET PO (08:04)
[2024-02-04] MEDS: DELTASONE 5 MG PO ×2 (08:04→19:23)
[2024-02-04] MEDS: OSCAL CAL 500 1000 MG PO ×2 (08:04→21:19)
[2024-02-04] MEDS: SUBUTEX 8 MG SL (08:04)
[2024-02-04] MEDS: DELTASONE 1 MG PO ×2 (08:04→19:23)
[2024-02-04] MEDS: PROTONIX 40 MG PO ×2 (08:04→19:23)
[2024-02-04 08:32] LABS: % Basophils 0.5 % (0-2); % Eosinophils 0.8 % (0-6); % Immature Granulocytes 2.7 % (0-0.5); % Lymphocytes 14.2 % (20.5-51.1); % Monocytes 9.7 % (1.7-9.3); % Neutrophils 72.1 % (42.2-75.2); Absolute Immature Granulocytes 0.1 10^3/uL (0-0.05); Absolute Lymphocytes 0.5 10^3/uL (1.2-3.4); Absolute Monocytes 0.4 10^3/uL (0.1-0.6); Absolute Neutrophils 2.7 10^3/uL (1.4-6.5); Hematocrit 31.6 % (37.0-47.0); Hemoglobin 9.2 g/dL (12.0-16.0); Mean Corp Hgb Conc. 29.1 g/dL (33.0-37.0); Mean Corpuscular Hgb 27.5 pg (27.0-31.0); Mean Corpuscular Volume 94.3 fL (81.0-99.0); Mean Platelet Volume 8.3 fL (7.4-10.4); Nucleated Red Blood Cells % 0 %; Platelet Count 257 10^3/uL (130-400); Red Blood Cell Count 3.35 10^6/uL (4.20-5.40); Red Cell Dist. Width 25.1 % (11.5-14.5); White Blood Cell Count 3.7 10^3/uL (4.8-10.8)
[2024-02-04] MEDS: CALCIUM GLUCONATE 1000 MG IV (10:22)
[2024-02-04 11:30] VITALS: BP 144/83
--- NOTE | 2024-02-04 11:46 | W.PN.NEPH.PH ---
Today's Communication / Plan
-
Continue electrolyte replacement
Can follow-up with me as an outpatient
Ergocalciferol twice a week for 4 weeks as well as a calcium carbonate
Assessment/Plan
-
38-year-old female presenting to the emergency department for evaluation after she started experiencing bilateral lower extremity edema yesterday accompanied with diffuse body paresthesias and intermittent palpitations. She is found to have
significant electrolyte abnormalities including calcium of 5.7Phosphorus 0.8 and magnesium of 1.4
Recently in the last six months or so started rinvoq for her Crohn's disease
electrolyte abnormalities including hypokalemia
hypocalcemia=5.7 corrected to 6.7
hypoMag
acute lower extremity edema
Crohn's disease
hypoalbumin=2.8
plan:
Urinalysis negative for protein ruling out nephrotic syndrome
check the PTH, vitamin D= PTH 265, vitamin D 25 OH less than 12, calcium improved corrected to 7.5 for albumin
avoid Lasix at this time with lower extremity edema void further hypocalcemia for now/minimal proteinuria not contributing to her hypoalbuminemia
Sodium restriction in the setting of edema> edema has improved without diuretic
vitamin D as well as calcium carbonate p.o. to be taken not with meals as this will lower phosphorus
The vitamin D ergocalciferol twice a week for 4 weeks as she is severely vitamin D deficient
As for the Injectafer as she just only about yesterday, it is very possible that this is the cause of her severe drop in phosphorus although severe vitamin D deficiency also can cause this. Having said that she has gotten the Injectafer in the past
without any issue
Continue to replete her electrolytes as ordered and I did tell her that she could follow-up with me in the office on discharge in a few weeks
-
-
Date of Service: February 04, 2024
CC / HPI / ROS
-
Chief Complaint:
Electrolyte abnormalities with lower extremity edema
History of Present Illness:
Presents with increasing lower extremity edema with history of chron's disease and electrolyte abnormalities
Review of Systems:
No chest pain or shortness of breath
Labs
-
Labs:
WBC 3.7 10^3/uL (4.8-10.8) L 02/04/24 05:57
RBC 3.35 10^6/uL (4.20-5.40) L 02/04/24 05:57
Hgb 9.2 g/dL (12.0-16.0) L 02/04/24 05:57
Hct 31.6 % (37.0-47.0) L 02/04/24 05:57
Plt Count 257 10^3/uL (130-400) D 02/04/24 05:57
Sodium 136 mmol/L (135-145) 02/04/24 05:57
Potassium 4.1 mmol/L (3.5-5.1) 02/04/24 05:57
Chloride 105 mmol/L (98-107) 02/04/24 05:57
Carbon Dioxide 26 mmol/L (22-30) 02/04/24 05:57
BUN 9 mg/dl (7-17) 02/04/24 05:57
Creatinine 0.5 mg/dL (0.6-1.0) L 02/04/24 05:57
eGFR > 60.00 02/04/24 05:57
Glucose 96 mg/dl (70-99) 02/04/24 05:57
Calcium 6.8 mg/dl (8.4-10.2) L* 02/04/24 05:57
Phosphorus 2.3 mg/dl (2.5-4.5) L 02/04/24 05:57
Akp-N-Qosirkmpfkh Pept 140 pg/ml 02/02/24 11:46
Albumin 2.6 g/dl (3.5-5.0) L 02/04/24 05:57
Physical Exam
-
Vital Signs:
Vital Signs
Temp Pulse Resp BP Pulse Ox
98.1 F 71 16 123/78 98
02/04/24 07:55 02/04/24 07:55 02/04/24 07:55 02/04/24 07:55 02/04/24 07:55
Respiratory:: Bilateral: CTA
Lung Excursion:: Normal
Abdomen:: Soft
Bowel Sounds:: Normal
Extremity Edema:: +1: Bilateral: (Edema has improved significantly)
Mireles Catheter: No
--- NOTE | 2024-02-04 13:35 | W.PN.HOSP.TC ---
Today's Communication/Plan
-
Electrolyte repletion
Continue calcium carbonate, ergocalciferol
Assessment / Plan
Assessment / Plan
General: Well Developed, Well Nourished and No Apparent Distress
HEENT: NormoCephalic, Moist mucous membranes and Atraumatic
Respiratory: Clear
Cardiac: S1/S2 and Regular Rhythm; No Murmur or Rub
GI: Soft, Non Tender, Non Distended and Normal Bowel Sounds; No Organomegaly
Rectal: Deferred by Provider
Musculoskeletal: No Clubbing, No Cyanosis, Edema, Left Lower Extremity and Edema, Right Lower Extremity
Skin: No Rash
Neuro: AO x 3 and Nonfocal/grossly intact
Symptomatic Hypocalcemia, associated diffuse paresthesia�improving, mostly resolved
#Hypophosphatemia
-Suspect secondary to vitamin D deficiency
� Electrolyte repletion
�Vitamin D supplementation
� Calcium carbonate p.o. with meals
-Ergocalciferol twice a week for 4 weeks as well as a calcium carbonate
� PTH v elevated
� Avoid diuretics at this time due to hypocalcemia
� Renal involved
� f/u renal outpatient
#Lower extremity edema
-improved
� Sodium restriction
� Suspect secondary to low albumin state
� Urinalysis negative for protein ruling out nephrotic syndrome
� Educated on increasing protein intake
Hypomagnesemia
�Monitor and replete
Hypalbuminemia
� Most likely for torsion secondary to Crohn's
� Advised on increasing protein intake
Follow GI outpatient
Chr normocytic Anemia
- stable Hgb
- Observe Hgb
HX Crohn's stable on chronic prednisone and Rinovoq 30mg HS
GERD
- on PO PPI
Depression
- on Escitalopram 10mg qpm
Hx Former Narcotic Abuse
- on Suboxone
Hx Tobacco Use
DVT ppx with Lovenox
Anticipated Discharge: Within 24 hours
Subjective/Interval History
-
Date of Service: February 04, 2024
No acute events overnight
Objective Data
-
Labs:
Laboratory Results
02/04/24
05:57
WBC 3.7 L
Hgb 9.2 L
Hct 31.6 L
Plt Count 257 D
Sodium 136
Potassium 4.1
Chloride 105
Carbon Dioxide 26
BUN 9
Creatinine 0.5 L
Glucose 96
Calcium 6.8 L*
Total Bilirubin < 0.1 L
AST 14
ALT 15
Alkaline Phosphatase 42
Vital Signs:
Vital Signs
Temp Pulse Resp BP Pulse Ox
98.0 F 92 16 144/83 98
02/04/24 11:30 02/04/24 11:30 02/04/24 11:30 02/04/24 11:30 02/04/24 11:30
I&O
02/03/24 02/04/24 02/05/24
06:59 06:59 06:59
Intake Total 480 / 480 1410 / 1410
Balance 480 / 480 1410 / 1410
Review of Systems
-
History Source: Patient
All other systems: Not reviewed unless documented
Data Reviewed
-
Labs: Labs Reviewed by me
[2024-02-04] MEDS: SUBUTEX 4 MG SL (14:07)
[2024-02-04] MEDS: NON-FORMULARY ITEM PO ×2 (14:53→14:54)
[2024-02-04 15:30] VITALS: BP 125/78
[2024-02-04] MEDS: LEXAPRO 10 MG PO (18:08)
[2024-02-04] MEDS: TYLENOL 650 MG PO (19:24)
[2024-02-04 19:50] VITALS: BP 114/80
[2024-02-04] MEDS: NICODERM TRANSDERMAL 14 MG TRANSDERM (21:17)
[2024-02-04] MEDS: NON-FORMULARY ITEM 30 MG PO (21:20)
[2024-02-04 23:40] VITALS: BP 133/87
[2024-02-05 03:24] VITALS: BP 132/75
[2024-02-05 06:00] VITALS: BMI 25.5
[2024-02-05 07:31] VITALS: BP 122/73
[2024-02-05 08:10] LABS: % Basophils 0.5 % (0-2); % Eosinophils 0.8 % (0-6); % Immature Granulocytes 3.6 % (0-0.5); % Lymphocytes 15.4 % (20.5-51.1); % Monocytes 9.9 % (1.7-9.3); % Neutrophils 69.8 % (42.2-75.2); Absolute Immature Granulocytes 0.1 10^3/uL (0-0.05); Absolute Lymphocytes 0.6 10^3/uL (1.2-3.4); Absolute Monocytes 0.4 10^3/uL (0.1-0.6); Absolute Neutrophils 2.5 10^3/uL (1.4-6.5); Hematocrit 34.7 % (37.0-47.0); Hemoglobin 10.1 g/dL (12.0-16.0); Mean Corp Hgb Conc. 29.1 g/dL (33.0-37.0); Mean Corpuscular Hgb 27.4 pg (27.0-31.0); Mean Corpuscular Volume 94.3 fL (81.0-99.0); Mean Platelet Volume 8.2 fL (7.4-10.4); Nucleated Red Blood Cells % 0 %; Platelet Count 262 10^3/uL (130-400); Red Blood Cell Count 3.68 10^6/uL (4.20-5.40); Red Cell Dist. Width 24.3 % (11.5-14.5); White Blood Cell Count 3.6 10^3/uL (4.8-10.8)
[2024-02-05 08:19] LABS: ALT (SGPT) 15 U/L (0-35); AST (SGOT) 14 U/L (14-36); Albumin 2.9 g/dl (3.5-5.0); Alkaline Phosphatase 46 U/L (38-126); Blood Urea Nitrogen 13 mg/dl (7-17); Calcium 7.4 mg/dl (8.4-10.2); Carbon Dioxide 26 mmol/L (22-30); Chloride 106 mmol/L (98-107); Estimated Creatinine Clearance 100 ml/min; Glucose 117 mg/dl (70-99); Magnesium 1.9 mg/dl (1.6-2.3); Phosphorus 1.5 mg/dl (2.5-4.5); Potassium 4.4 mmol/L (3.5-5.1); Sodium 138 mmol/L (135-145); Total Bilirubin 0.1 mg/dl (0.2-1.3); Total Protein 5.2 g/dl (6.3-8.2); eGFR > 60.00
[2024-02-05] MEDS: THERAGRAN 1 TABLET PO (09:20)
[2024-02-05] MEDS: PROTONIX 40 MG PO (09:20)
[2024-02-05] MEDS: DELTASONE 1 MG PO (09:20)
[2024-02-05] MEDS: SUBUTEX 8 MG SL (09:20)
[2024-02-05] MEDS: DELTASONE 5 MG PO (09:21)
[2024-02-05] MEDS: OSCAL CAL 500 1000 MG PO (09:21)
--- NOTE | 2024-02-05 09:37 | W.PN.HOSP.TC ---
Today's Communication/Plan
-
dc
Assessment / Plan
Assessment / Plan
PE:
General: Well Developed, Well Nourished and No Apparent Distress
HEENT: NormoCephalic, Moist mucous membranes and Atraumatic
Respiratory: Clear
Cardiac: S1/S2 and Regular Rhythm; No Murmur or Rub
GI: Soft, Non Tender, Non Distended and Normal Bowel Sounds; No Organomegaly
Rectal: No bleeding
Musculoskeletal: No Clubbing, No Cyanosis, Edema, Left Lower Extremity and Edema, Right Lower Extremity
Skin: No Rash
Neuro: AO x 3 and Nonfocal/grossly intact, she followed commands.
Psych, pleasant, calm.
Symptomatic Hypocalcemia, associated diffuse paresthesia�improving, mostly resolved
#Hypophosphatemia
-hypomagnesemia
-Suspect secondary to vitamin D deficiency
� Electrolyte repletion
�Vitamin D supplementation
� Calcium carbonate p.o. with meals
-Ergocalciferol twice a week for 4 weeks as well as a calcium carbonate
� PTH v elevated
� Avoid diuretics at this time due to hypocalcemia
� Renal involved
� f/u renal outpatient
#Lower extremity edema
-improved
� Sodium restriction
� Suspect secondary to low albumin state
� Urinalysis negative for protein ruling out nephrotic syndrome
� Educated on increasing protein intake
Hypomagnesemia
�Monitor and replete
Hypalbuminemia
� Most likely for torsion secondary to Crohn's
� Advised on increasing protein intake
to Follow GI outpatient
Chr normocytic Anemia
- stable Hgb
- Observe Hgb
HX Crohn's stable on chronic prednisone and Rinovoq 30mg HS
GERD
- on PO PPI
Depression
- on Escitalopram 10mg qpm
Hx Former Narcotic Abuse
- on Suboxone
Hx Tobacco Use
DVT ppx with Lovenox
Total discharge time spent to see the patient, examine the patient, review data and lab results, discuss the discharge plan with patient, emergency medcl emt, nursing staff around 65 minutes
Anticipated Discharge: Today
Subjective/Interval History
-
Date of Service: February 05, 2024
She feels better
eager to dc
Objective Data
-
Labs:
Laboratory Results
02/05/24
07:10
WBC 3.6 L
Hgb 10.1 L
Hct 34.7 L
Plt Count 262
Sodium 138
Potassium 4.4
Chloride 106
Carbon Dioxide 26
BUN 13
Creatinine 0.5 L
Glucose 117 H
Calcium 7.4 L
Total Bilirubin 0.1 L
AST 14
ALT 15
Alkaline Phosphatase 46
Vital Signs:
Vital Signs
Temp Pulse Resp BP Pulse Ox
99 F 80 20 122/73 98
02/05/24 07:31 02/05/24 07:31 02/05/24 07:31 02/05/24 07:31 02/05/24 07:31
I&O
02/04/24 02/05/24 02/06/24
06:59 06:59 06:59
Intake Total 1410 / 1410 900 / 900
Balance 1410 / 1410 900 / 900
[2024-02-05] MEDS: NEUTRA-PHOS POWDER PACKET 250 MG PO (10:37)
[2024-02-05 11:39] VITALS: BP 123/76
--- NOTE | 2024-02-05 13:36 | W.DCSUMMARY ---
Discharge Summary
Discharge Data
Date of Admission: 02/02/24
Date of Discharge: 02/05/24
-
Pending Results: No
Hospital Course
38 years old female presented to the emergency department for evaluation of bilateral lower extremity edema accompanied by diffuse body paresthesias. She was found to have significant electrolyte abnormalities including calcium of 5.7Phosphorus 0.8
and magnesium of 1.4. She was started Rinvoq for her Crohn's disease in recent months. Patient was given replacement therapy. She was evaluated by nephrology service and was found to have vitamin D deficiency. She started to feel better with
resolution of her symptoms. She tolerated diet. She was given a script for oral calcium, vitamin D and phosphate. She was advised to do blood work and follow with her doctors as instructed. She remained hemodynamically stable and was discharged in a
stable condition.
Discharge Plan
-
Patient Disposition: Home (Routine Discharge)
Discharge Diagnosis/Procedures: -Hypocalcemia
-Hypophosphatemia
-Hypomagnesemia
-Vitamin D deficiency
Repeat blood work, follow with kidney doctor for monitoring/questions.
Diet: As tolerated
Blood Work: Basic metabolic panel (BMP), phosphorus, magnesium in 3-4 days
Referrals:
Mika Clemente DO [Non-Admitting Privileges] - in two to three weeks
Petrona Chavarria MD [Family Provider] - in one to two weeks
Prescriptions:
New
ergocalciferol (vitamin D2) 1,250 mcg (50,000 unit) Capsule
50,000 unit PO Q7D Qty: 7 0RF
calcium carbonate 500 mg calcium (1,250 mg) Tablet
1,000 mg PO BID Qty: 120 0RF
Y-Vfrh-Ddtrljw 250 mg tablet
1 tab PO BID Qty: 60 0RF
Continued
prednisone 10 MG tablet
6 mg PO BID
nicotine 14 MG patch 24 hour
14 mg transdermal HS
Patient Comments:
patient changes patch every night
pantoprazole 40 MG tablet,delayed release (DR/EC)
40 mg PO BID
escitalopram oxalate 10 MG tablet
10 mg PO QPM
multivitamin with folic acid [Tab-A-Anna] 1 TABLET tablet
1 tab PO DAILY
norgestimate-ethinyl estradiol 0.25-35 mg-mcg tablet
1 tab PO HS
cyanocobalamin (vitamin B-12) 1,000 mcg/mL Solution
1,000 mcg IM QMONTH
ondansetron 4 mg Tablet,Disintegrating
4 mg PO Q6HPRN PRN (Reason: nausea)
buprenorphine-naloxone 8-2 mg Tablet, Sublingual
1 tab SUBLINGUAL DAILY
buprenorphine-naloxone 8-2 mg tablet, sublingual
0.5 tab SUBLINGUAL DAILY@1500
Rinvoq 30 mg Tablet Extended Release 24 Hr
30 mg PO HS
Discontinued
ergocalciferol (vitamin D2) [Vitamin D2] 1,250 mcg (50,000 unit) capsule
1,250 mcg PO WE
Discharge Orders:
Discharge Patient (As Directed); Ordered 02/05/24
Ordered By: Hilary Plaza
Discharge Date and Time
Print Language: ROMANIAN
--- NOTE | 2024-02-05 14:55 | CM ---
Alert awake oriented patient who lives with her parents and 2 children who lives in a 2 story home with 1 steps to enter and 14 to bed bathroom. She is independent in driving and in all activities of daily living.Offered VN she declined.
No adaptive devices
Never had VN/SNF
Pharmacy [facility]
PCP Dr Chavarria
PLAN Home no needs
[2024-02-05 16:53] LABS: Vitamin D 1,25 Dihydroxy 24.4 pg/mL (19.9-79.3)
== END 2024-02-05 12:45 | disposition home or self-care (01) | DRG 641 ==
LOC: 4 EAST ACU 12:52
PROVIDERS: Clinical Nurse Specialist Family Health; Internal Medicine; Physician Assistant Medical; ADMITTING PHYSICIAN Internal Medicine; ATTENDING PHYSICIAN Internal Medicine; CONSULT PHYSICIAN Internal Medicine Nephrology; EMERGENCY PHYSICIAN Emergency Medicine; FAMILY PHYSICIAN Family Medicine
DX: E55.9 Vitamin D deficiency, unspecified (principal); K50.90 Crohn's disease, unspecified, without complications; K90.9 Intestinal malabsorption, unspecified; D64.9 Anemia, unspecified; Z90.49 Acquired absence of other specified parts of digestive tract; Z87.891 Personal history of nicotine dependence; E87.6 Hypokalemia; F11.10 Opioid abuse, uncomplicated; F32.A Depression, unspecified; F41.9 Anxiety disorder, unspecified; K21.9 Gastro-esophageal reflux disease without esophagitis; Z79.52 Long term (current) use of systemic steroids; E88.09 Other disorders of plasma-protein metabolism, not elsewhere classified
CPT/HCPCS: 80053; 81003; 82306; 82330; 82652; 83735; 83880; 83970; 84100; 84443; 84703; 85025; 93005; 93970; 96365; 96375; 99291; 99406

== ENCOUNTER 2024-03-13 11:42 | Emergency (ER) | payer MEDICARE, OTHER, SELFPAY ==
[2024-03-13 12:09] VITALS: BP 140/95
[2024-03-13 12:57] LABS: % Basophils 0.4 % (0-2); % Eosinophils 0.2 % (0-6); % Immature Granulocytes 1.4 % (0-0.5); % Lymphocytes 6.3 % (20.5-51.1); % Monocytes 3.5 % (1.7-9.3); % Neutrophils 88.2 % (42.2-75.2); Absolute Immature Granulocytes 0.1 10^3/uL (0-0.05); Absolute Lymphocytes 0.5 10^3/uL (1.2-3.4); Absolute Monocytes 0.3 10^3/uL (0.1-0.6); Absolute Neutrophils 7.2 10^3/uL (1.4-6.5); Hematocrit 36.9 % (37.0-47.0); Hemoglobin 11.9 g/dL (12.0-16.0); Mean Corp Hgb Conc. 32.2 g/dL (33.0-37.0); Mean Corpuscular Hgb 29.9 pg (27.0-31.0); Mean Corpuscular Volume 92.7 fL (81.0-99.0); Nucleated Red Blood Cells % 0 %; Platelet Count 343 10^3/uL (130-400); Red Blood Cell Count 3.98 10^6/uL (4.20-5.40); Red Cell Dist. Width 13.8 % (11.5-14.5); White Blood Cell Count 8.1 10^3/uL (4.8-10.8)
[2024-03-13 12:57] LABS: Urine Albumin 1+ (Neg - Trace); Urine Bilirubin 1+ (Negative); Urine Character Clear (Clear); Urine Color Yellow; Urine Glucose Negative (Negative); Urine Ketone Negative (Negative); Urine Leukocyte 1+ (Negative); Urine Nitrite Negative (Negative); Urine Occult Blood Negative (Negative); Urine Urobilinogen Negative (Neg - 1+)
[2024-03-13 13:11] LABS: HCG, Serum Qualitative Screen Negative
[2024-03-13 13:11] LABS: Urine Bacteria Few (Negative); Urine Mucus Few; Urine Red Blood Cell 0-2 /HPF (0-2)
[2024-03-13 13:25] LABS: ALT (SGPT) 17 U/L (0-35); AST (SGOT) 21 U/L (14-36); Albumin 3.1 g/dl (3.5-5.0); Alkaline Phosphatase 81 U/L (38-126); Blood Urea Nitrogen 11 mg/dl (7-17); Calcium 8.5 mg/dl (8.4-10.2); Carbon Dioxide 21 mmol/L (22-30); Chloride 104 mmol/L (98-107); Glucose 152 mg/dl (70-99); Potassium 3.8 mmol/L (3.5-5.1); Sodium 134 mmol/L (135-145); Total Bilirubin < 0.1 mg/dl (0.2-1.3); Total Protein 5.6 g/dl (6.3-8.2); eGFR > 60.00
[2024-03-13 14:30] VITALS: BP 143/87
[2024-03-13 17:25] VITALS: BP 126/91
--- NOTE | 2024-03-13 18:24 | ED.GENMED ---
History of Present Illness
General
Chief Complaint: Back Pain
Source: patient
Time Seen by Provider: 03/13/24 18:03
History of Present Illness
History of Present Illness:
This a 38-year-old female with a history of Crohn's disease who presents with left low back pain. The patient states that in the past she has had some electrolyte imbalances. She states the pain is clearly worse when she moves. She does state
that it came on relatively acutely but has just persisted in the same spot. No dysuria. No hematuria. No fevers. No radiation down the legs. No abdominal pain.
Past History
Past History
ED Past Medical History: Other (crohns, chronic anemia, narcotic abuse) and Other (Previous seizure from narcotic as well as from Wellbutrin withdrawal, Crohn's disease, anemia, previous small bowel obstruction,)
ED Past Surgical History: Appendectomy, Bowel resection ( X5), Gynecological and Other (Hernia repair X2)
Social History
Tobacco: Former smoker
Alcohol: None
Drug: Former user (on suboxone)
Personal: Single
Living: with family
Employment: Not employed
Family History
Family History: Other (Crohn's disease)
Phy Exam
Physical Exam
Physical Exam:
CONSTITUTIONAL Vital signs reviewed, Patient alert and oriented to person, place and time. Well-appearing
HEAD atraumatic, normocephalic.
EYES eyelids normal to inspection, Extraocular muscles intact, Conjunctiva normal, Sclera normal.
NECK normal range of motion, Trachea midline, no jugular venous distention.
RESP no respiratory distress
BACK No obvious deformities, moderate tenderness noted to the left paraspinal lumbar region. No midline tenderness. No CVA tenderness. Negative straight leg raise
UPPER EXTREMITY Gross Range of motion normal, gross motor strength normal
LOWER EXTREMITY Gross range of motion normal, Gross motor strength normal
NEURO Speech normal, No focal motor deficits include, Ozzy coma scale 15, Memory normal, Cranial Nerves intact to screening exam.
SKIN Skin warm, dry, and normal in color.
PSYCHIATRIC Patient oriented to person place and time, Normal affect.
Course
Orders/Labs/Results
Orders:
Orders
03/13/24 12:12
Test Result ONCE
03/13/24 12:18
Complete Blood Count/With Diff Urgent
Comprehensive Metabolic Panel Urgent
HCG, Serum Qualitative Screen Urgent
Magnesium Urgent
Comment: ADD ON
Phosphorus Urgent
Comment: ADD ON
03/13/24 12:24
Urinalysis Reflex To Culture Urgent
Date Specimen was Collected: 03/13/24
Time Specimen was Collected: 12:12
Urine Microscopic Reflex Cult Urgent
Urine Culture Urgent
[place] Source: U
Specimen Description:
Date Specimen was Collected: 03/13/24
Time Specimen was Collected: 12:12
03/13/24 18:03
Add On- LAB Urgent
Tests Added?: Mg
03/13/24 18:14
Add On- LAB Urgent
Tests Added?: phosphorus
Abnormal Lab Results
03/13/24 03/13/24
12:18 12:24
RBC 3.98 L 10^6/uL
(4.20-5.40)
Hgb 11.9 L g/dL
(12.0-16.0)
Hct 36.9 L %
(37.0-47.0)
MCHC 32.2 L g/dL
(33.0-37.0)
Abs Immat Gran (auto) 0.1 H 10^3/uL
(0-0.05)
Absolute Neuts (auto) 7.2 H 10^3/uL
(1.4-6.5)
Absolute Lymphs (auto) 0.5 L 10^3/uL
(1.2-3.4)
Immature Gran % 1.4 H %
(0-0.5)
Neutrophils % 88.2 H %
(42.2-75.2)
Lymphocytes % 6.3 L %
(20.5-51.1)
Sodium 134 L mmol/L
(135-145)
Carbon Dioxide 21 L mmol/L
(22-30)
Glucose 152 H mg/dl
(70-99)
Phosphorus 2.0 L mg/dl
(2.5-4.5)
Total Bilirubin < 0.1 L mg/dl
(0.2-1.3)
Total Protein 5.6 L g/dl
(6.3-8.2)
Albumin 3.1 L g/dl
(3.5-5.0)
Urine Bilirubin 1+ A
(Negative)
Leukocyte Esterase Rfl 1+ A
(Negative)
Urine Bacteria (Reflex) Few A
(Negative)
Urine Albumin (Reflex) 1+ A
(Neg - Trace)
03/13/24 12:18
03/13/24 12:18
Vital Signs
Initial and Last Documented VS:
Initial Vital Signs
Temp Pulse Resp BP Pulse Ox
98.7 F 91 18 140/95 97
03/13/24 12:09 03/13/24 12:09 03/13/24 12:03/13/24 12:03/13/24 12:09
Last Documented Vital Signs
Temp Pulse Resp BP Pulse Ox
98.7 F 107 20 126/91 97
03/13/24 12:09 03/13/24 17:25 03/13/24 17:25 03/13/24 17:03/13/24 17:25
MDM/Problems Addressed
MDM/Problems Addressed:
Low back pain
*Pulse Oximetry
Patient hypoxic: no
*Critical Care Note
Total Time (30-74mins, 75-104mins- exclusive of procedures): Not Applicable
Data Reviewed
Review of Other/Old Records Reveals: Labs (Prior labs reviewed revealing hypomagnesemia and other electrolyte imbalances)
Source: patient
Further Testing Considered But Not Given:
Consider imaging but no falls no midline bony tenderness.
Patient Management
Escalation/DeEscalation of care consider admission/obs:
Pain clearly worse when she moves. Okay for discharge and outpatient follow-up. No concern for fracture. Labs grossly unremarkable and nearing baseline but I did advise her to have outpatient follow-up regarding her labs.
ED Attending Note
-
Portions of this chart may have been created with voice recognition software.� Occasional wrong word or��sound alike� substitutions may have occurred due to the inherent limitations of voice recognition software.
Discharge Plan
Departure
Patient Disposition: Home (Routine Discharge)
Date of Disposition: 03/13/24
Time of Disposition: 18:25
Patient with high blood pressure during this ER visit?: Yes
Discharge Problem:
Back pain
Instructions: Low Back Pain (DC), BLOOD PRESSURE
Prescriptions:
No Action
prednisone 10 MG tablet
6 mg PO BID
nicotine 14 MG patch 24 hour
14 mg transdermal HS
Patient Comments:
patient changes patch every night
pantoprazole 40 MG tablet,delayed release (DR/EC)
40 mg PO BID
escitalopram oxalate 10 MG tablet
10 mg PO QPM
multivitamin with folic acid [Tab-A-Anna] 1 TABLET tablet
1 tab PO DAILY
norgestimate-ethinyl estradiol 0.25-35 mg-mcg tablet
1 tab PO HS
cyanocobalamin (vitamin B-12) 1,000 mcg/mL Solution
1,000 mcg IM QMONTH
ondansetron 4 mg Tablet,Disintegrating
4 mg PO Q6HPRN PRN (Reason: nausea)
buprenorphine-naloxone 8-2 mg Tablet, Sublingual
1 tab SUBLINGUAL DAILY
buprenorphine-naloxone 8-2 mg tablet, sublingual
0.5 tab SUBLINGUAL DAILY@1500
Rinvoq 30 mg Tablet Extended Release 24 Hr
30 mg PO HS
ergocalciferol (vitamin D2) 1,250 mcg (50,000 unit) Capsule
50,000 unit PO Q7D Qty: 7 0RF
calcium carbonate 500 mg calcium (1,250 mg) Tablet
1,000 mg PO BID Qty: 120 0RF
L-Uwcx-Fybppod 250 mg tablet
1 tab PO BID Qty: 60 0RF
Referrals:
Petrona Chavarria MD [Family Provider] -
Activity Restrictions/Additional Instructions:
Continue your Tylenol. You may use Celebrex as needed. Apply warm compresses as discussed. Please see your doctor in the next 3 to 5 days for follow-up and reevaluation
Interventions
Interventions:
*Risk Screen - Suicide Last Done: 03/13/24 12:09
*General Assessment Last Done: 03/13/24 12:09
*Neglect/Abuse Screening Last Done: 03/13/24 12:09
*ED COVID-19 Vaccine History Last Done: 03/13/24 19:02
*Nursing Disposition Last Done: 03/13/24 19:16
ED-Musculoskeletal Assessment Last Done: 03/13/24 18:30
Discharge Date and Time
Discharge Date/Time: 03/13/24 19:17
Print Language: MICRONESIAN
[2024-03-13 18:36] LABS: Magnesium 1.7 mg/dl (1.6-2.3)
== END 2024-03-13 19:17 | disposition home or self-care (01) ==
LOC: EMR 11:42
PROVIDERS: Emergency Medicine; EMERGENCY PHYSICIAN Emergency Medicine; FAMILY PHYSICIAN Family Medicine
DX: M54.50 Low back pain, unspecified (principal); Z87.891 Personal history of nicotine dependence; Z90.49 Acquired absence of other specified parts of digestive tract; Z87.19 Personal history of other diseases of the digestive system
CPT/HCPCS: 99283; 80053; 81003; 81015; 83735; 84100; 84703; 85025; 87086

== ENCOUNTER 2024-03-24 15:02 | Emergency (ER) | payer MEDICARE, OTHER, SELFPAY ==
[2024-03-24 15:05] VITALS: BP 127/90
[2024-03-24 15:30] LABS: % Basophils 0.5 % (0-2); % Eosinophils 0.8 % (0-6); % Immature Granulocytes 3.4 % (0-0.5); % Lymphocytes 7.4 % (20.5-51.1); % Neutrophils 78.9 % (42.2-75.2); Absolute Eosinophils 0.1 10^3/uL (0-0.7); Absolute Immature Granulocytes 0.2 10^3/uL (0-0.05); Absolute Lymphocytes 0.5 10^3/uL (1.2-3.4); Absolute Monocytes 0.6 10^3/uL (0.1-0.6); Absolute Neutrophils 4.9 10^3/uL (1.4-6.5); Hemoglobin 11.5 g/dL (12.0-16.0); Mean Corp Hgb Conc. 32.9 g/dL (33.0-37.0); Mean Corpuscular Volume 91.4 fL (81.0-99.0); Nucleated Red Blood Cells % 0 %; Platelet Count 327 10^3/uL (130-400); Red Blood Cell Count 3.83 10^6/uL (4.20-5.40); Red Cell Dist. Width 13.3 % (11.5-14.5); White Blood Cell Count 6.2 10^3/uL (4.8-10.8)
[2024-03-24 15:32] LABS: Urine Albumin 2+ (Neg - Trace); Urine Bilirubin 2+ (Negative); Urine Character Clear (Clear); Urine Color Yellow; Urine Glucose Negative (Negative); Urine Ketone 1+ (Negative); Urine Leukocyte 2+ (Negative); Urine Nitrite Negative (Negative); Urine Occult Blood Negative (Negative); Urine Urobilinogen 1+ (Neg - 1+)
[2024-03-24 15:50] LABS: HCG, Serum Qualitative Screen Negative
[2024-03-24 15:52] LABS: ALT (SGPT) 18 U/L (0-35); AST (SGOT) 20 U/L (14-36); Albumin 3.1 g/dl (3.5-5.0); Alkaline Phosphatase 86 U/L (38-126); Blood Urea Nitrogen 11 mg/dl (7-17); Calcium 8.4 mg/dl (8.4-10.2); Carbon Dioxide 25 mmol/L (22-30); Chloride 102 mmol/L (98-107); Glucose 128 mg/dl (70-99); Potassium 3.3 mmol/L (3.5-5.1); Sodium 134 mmol/L (135-145); Total Bilirubin 0.4 mg/dl (0.2-1.3); Total Protein 5.5 g/dl (6.3-8.2); eGFR > 60.00
[2024-03-24 16:07] VITALS: BMI 23.0
[2024-03-24 16:09] LABS: Urine Calcium Oxalate Crystals Seen; Urine Squamous Cell 16-20 /LPF (Few)
--- NOTE | 2024-03-24 16:40 | ED.GENMED ---
History of Present Illness
<Adele Rodney, COIL REPAIR TECHNICIAN - Last Filed: 03/25/24 12:10>
General
Chief Complaint: Back Pain
Source: patient
Exam Limitations: none
Time Seen by Provider: 03/24/24 16:31
Nursing documentation reviewed up to this point in time: agreed with
History of Present Illness
History of Present Illness:
38 yo female w h/o Crohn's disease on Prednisone 10 mg daily (five colon resections, last one 7 yrs ago), anemia, is here for left lower back pain and a 'mass' on lower back just to the left of the spine.
Was evaluated here on 03/13 for left lower back pain, has been taking Ibuprofen, Flexeril, heating pad, states this is the same pain and getting worse.
She is afraid the mass on her lower back is a tumor making the pain worse.
Denies fever/chills. Denies loss of control of bowel or bladder. Denies saddle numbness or weakness in legs.
Pain is aggravated when she sits and with certain movements.
Denies CP, SOB, abdominal pain. Denies n/v/d/c. Denies UTI symptoms.
Past History
<Adele Rodney, COIL REPAIR TECHNICIAN - Last Filed: 03/25/24 12:10>
Past History
ED Past Medical History: Other (crohns, chronic anemia, narcotic abuse) and Other (Previous seizure from narcotic as well as from Wellbutrin withdrawal, Crohn's disease, anemia, previous small bowel obstruction,)
ED Past Surgical History: Appendectomy, Bowel resection ( X5 due to Crohn's), Gynecological and Other (Hernia repair X2)
Social History
Tobacco: Former smoker
Alcohol: None
Drug: Former user (on suboxone)
Personal: Single
Living: with family
Employment: Not employed
Family History
Family History: Other (Crohn's disease)
Review of Systems
<Adele Rodney, COIL REPAIR TECHNICIAN - Last Filed: 03/25/24 12:10>
Review of Systems
Allergies reviewed?: Yes
All Other Systems: ROS reviewed and negative except as documented in HPI and ROS
Constitutional: Denies fever or chills
Respiratory: Denies trouble breathing
Cardiac: Denies chest pain
ABD/GI: Denies abdominal pain, nausea, vomiting, diarrhea or constipated
: Denies dysuria, frequency, incontinence, difficulty voiding or urgency
Musculoskeletal: Reports back pain
Skin: Reports other (mass of skin left lower back )
Neurological: Reports no symptoms
Phy Exam
<Adele Rodney, COIL REPAIR TECHNICIAN - Last Filed: 03/25/24 12:10>
Physical Exam
Physical Exam:
GENERAL: No acute distress. A&Ox3.
CONSTITUTIONAL: Afebrile.
RESPIRATORY: Regular respirations, nonlabored, lungs clear.
CARDIOVASCULAR: Regular rate and rhythm, no murmurs, no rubs.
GI: Soft, nontender, normal BS
MUSCULOSKELETAL: Mildly tender to palpation of approx 5 x 6 cm spongy, irregular shape, soft mass just to the left of L4-5 best palpated with pt sitting up, leaning slightly forward. No spinal bony tenderness. No pain with rotation of torso.
Flexing forward to 45 degrees aggravates pain L lower back. No pain with bilateral SLR. Full ROM of lower extremities. Moves with ease. Well perfused.
SKIN: Warm, dry, pink
PSYCH: Normal mood and affect. Well kept, interactive and appropriate
NEUROLOGIC: Awake, alert and oriented. No focal neurological deficits. Strength 5/5 throughout. Patellar reflexes equal. Ambulating with normal gait.
Course
<Adele Rodney, COIL REPAIR TECHNICIAN - Last Filed: 03/25/24 12:10>
Orders/Labs/Results
Orders:
Orders
03/24/24 15:09
Test Result ONCE
03/24/24 15:15
Complete Blood Count/With Diff Urgent
Comprehensive Metabolic Panel Urgent
HCG, Serum Qualitative Screen Urgent
Urinalysis Reflex To Culture Urgent
Date Specimen was Collected: 03/24/24
Time Specimen was Collected: 15:09
Urine Microscopic Reflex Cult Urgent
Urine Culture Urgent
[place] Source: U
Specimen Description:
Date Specimen was Collected: 03/24/24
Time Specimen was Collected: 15:09
03/24/24 16:43
CT Abd/pel Without Iv Or Oral Urgent
Comment:
Reason For Exam: left flank pain
Abnormal Lab Results
03/24/24
15:15
RBC 3.83 L 10^6/uL
(4.20-5.40)
Hgb 11.5 L g/dL
(12.0-16.0)
Hct 35.0 L %
(37.0-47.0)
MCHC 32.9 L g/dL
(33.0-37.0)
Abs Immat Gran (auto) 0.2 H 10^3/uL
(0-0.05)
Absolute Lymphs (auto) 0.5 L 10^3/uL
(1.2-3.4)
Immature Gran % 3.4 H %
(0-0.5)
Neutrophils % 78.9 H %
(42.2-75.2)
Lymphocytes % 7.4 L %
(20.5-51.1)
Sodium 134 L mmol/L
(135-145)
Potassium 3.3 L mmol/L
(3.5-5.1)
Glucose 128 H mg/dl
(70-99)
Total Protein 5.5 L g/dl
(6.3-8.2)
Albumin 3.1 L g/dl
(3.5-5.0)
Urine Ketones 1+ A
(Negative)
Urine Bilirubin 2+ A
(Negative)
Leukocyte Esterase Rfl 2+ A
(Negative)
Urine RBC 11-15 A /HPF
(0-2)
Urine Albumin (Reflex) 2+ A
(Neg - Trace)
03/24/24 15:15
03/24/24 15:15
Vital Signs
Initial and Last Documented VS:
Initial Vital Signs
Temp Pulse Resp BP Pulse Ox
97.9 F 108 16 127/90 97
03/24/24 15:05 03/24/24 15:05 03/24/24 15:05 03/24/24 15:05 03/24/24 15:05
Last Documented Vital Signs
Temp Pulse Resp BP Pulse Ox
97.9 F 108 16 127/90 97
03/24/24 15:05 03/24/24 15:05 03/24/24 15:05 03/24/24 15:05 03/24/24 15:05
<Toni Kebede MD - Last Filed: 03/24/24 18:50>
Orders/Labs/Results
Orders:
Orders
03/24/24 15:09
Test Result ONCE
03/24/24 15:15
Complete Blood Count/With Diff Urgent
Comprehensive Metabolic Panel Urgent
HCG, Serum Qualitative Screen Urgent
Urinalysis Reflex To Culture Urgent
Date Specimen was Collected: 03/24/24
Time Specimen was Collected: 15:09
Urine Microscopic Reflex Cult Urgent
Urine Culture Urgent
[place] Source: U
Specimen Description:
Date Specimen was Collected: 03/24/24
Time Specimen was Collected: 15:09
03/24/24 16:43
CT Abd/pel Without Iv Or Oral Urgent
Comment:
Reason For Exam: left flank pain
Abnormal Lab Results
03/24/24
15:15
RBC 3.83 L 10^6/uL
(4.20-5.40)
Hgb 11.5 L g/dL
(12.0-16.0)
Hct 35.0 L %
(37.0-47.0)
MCHC 32.9 L g/dL
(33.0-37.0)
Abs Immat Gran (auto) 0.2 H 10^3/uL
(0-0.05)
Absolute Lymphs (auto) 0.5 L 10^3/uL
(1.2-3.4)
Immature Gran % 3.4 H %
(0-0.5)
Neutrophils % 78.9 H %
(42.2-75.2)
Lymphocytes % 7.4 L %
(20.5-51.1)
Sodium 134 L mmol/L
(135-145)
Potassium 3.3 L mmol/L
(3.5-5.1)
Glucose 128 H mg/dl
(70-99)
Total Protein 5.5 L g/dl
(6.3-8.2)
Albumin 3.1 L g/dl
(3.5-5.0)
Urine Ketones 1+ A
(Negative)
Urine Bilirubin 2+ A
(Negative)
Leukocyte Esterase Rfl 2+ A
(Negative)
Urine RBC 11-15 A /HPF
(0-2)
Urine Albumin (Reflex) 2+ A
(Neg - Trace)
03/24/24 15:15
03/24/24 15:15
Vital Signs
Initial and Last Documented VS:
Initial Vital Signs
Temp Pulse Resp BP Pulse Ox
97.9 F 108 16 127/90 97
03/24/24 15:05 03/24/24 15:05 03/24/24 15:05 03/24/24 15:05 03/24/24 15:05
Last Documented Vital Signs
Temp Pulse Resp BP Pulse Ox
97.9 F 108 16 127/90 97
03/24/24 15:05 03/24/24 15:05 03/24/24 15:05 03/24/24 15:05 03/24/24 15:05
<Adele Rodney COIL REPAIR TECHNICIAN - Last Filed: 03/25/24 12:10>
MDM/Problems Addressed
Differential Diagnosis Includes:
L lower back mass: fatty lipoma
Lumbar sprain/strain, sciatica
MDM/Problems Addressed:
38 yo female w h/o Crohn's disease on Prednisone 10 mg daily (five colon resections, last one 7 yrs ago), anemia, is here for left lower back pain and a 'mass' on lower back just to the left of the spine.
Was evaluated here on 03/13 for left lower back pain, has been taking Ibuprofen, Flexeril, heating pad, states this is the same pain and getting worse.
She is afraid the mass on her lower back is a tumor making the pain worse.
Denies fever/chills. Denies loss of control of bowel or bladder. Denies saddle numbness or weakness in legs.
Pain is aggravated when she sits and with certain movements.
Denies CP, SOB, abdominal pain. Denies n/v/d/c. Denies UTI symptoms.
Case discussed with Dr. Kebede who agrees plain CT scan will give good look at spine and soft tissue.
03/25/24 12:00 p.m.
Pt called and informed of constipation on CT scan. She does take stool softeners but will try Miralax or Dulcolax and see if having 1-2 BMs helps her back pain.
<Adele Rodney COIL REPAIR TECHNICIAN - Last Filed: 03/25/24 12:10>
*Critical Care Note
Total Time (30-74mins, 75-104mins- exclusive of procedures): Not Applicable
ED Attending Note
<Adele Rodney NP - Last Filed: 03/25/24 12:10>
-
Portions of this chart may have been created with voice recognition software.� Occasional wrong word or��sound alike� substitutions may have occurred due to the inherent limitations of voice recognition software.
<Toni Kebede MD - Last Filed: 03/24/24 18:50>
ED Attending Note
Patient seen and examined by attending physician: Yes
I performed the substantive portion of visit, reviewed & personally made and approve the management plan that is documented in note by myself or PRUDENCIO.: Yes
ED Attending Note:
Complaining of ongoing low back pain she also noted a lump in her left lower back. No neurologic symptoms.
On exam patient is nontoxic in no distress. Warm and dry. Perfusing well. The area the patient points to the swelling I do not appreciate any lump or lipoma. She has no spinal tenderness. She is in no distress. CT scan is stable. Labs are
stable. For discharge to follow-up urinalysis is contaminated. No pain with urination
Discharge Plan
Departure
Patient Disposition: Home (Routine Discharge)
Date of Disposition: 03/24/24
Time of Disposition: 18:50
Patient with high blood pressure during this ER visit?: Yes
Discharge Problem:
Lipoma of back, Low back pain radiating to left leg, Sciatica of left side
Instructions: Low Back Pain (DC), Sciatica (DC), Lipoma, BLOOD PRESSURE
Prescriptions:
No Action
prednisone 10 MG tablet
6 mg PO BID
nicotine 14 MG patch 24 hour
14 mg transdermal HS
Patient Comments:
patient changes patch every night
pantoprazole 40 MG tablet,delayed release (DR/EC)
40 mg PO BID
escitalopram oxalate 10 MG tablet
10 mg PO QPM
multivitamin with folic acid [Tab-A-Anna] 1 TABLET tablet
1 tab PO DAILY
norgestimate-ethinyl estradiol 0.25-35 mg-mcg tablet
1 tab PO HS
cyanocobalamin (vitamin B-12) 1,000 mcg/mL Solution
1,000 mcg IM QMONTH
ondansetron 4 mg Tablet,Disintegrating
4 mg PO Q6HPRN PRN (Reason: nausea)
buprenorphine-naloxone 8-2 mg Tablet, Sublingual
1 tab SUBLINGUAL DAILY
buprenorphine-naloxone 8-2 mg tablet, sublingual
0.5 tab SUBLINGUAL DAILY@1500
Rinvoq 30 mg Tablet Extended Release 24 Hr
30 mg PO HS
ergocalciferol (vitamin D2) 1,250 mcg (50,000 unit) Capsule
50,000 unit PO Q7D Qty: 7 0RF
calcium carbonate 500 mg calcium (1,250 mg) Tablet
1,000 mg PO BID Qty: 120 0RF
C-Ioyb-Ibecenx 250 mg tablet
1 tab PO BID Qty: 60 0RF
Referrals:
Petrona Chavarria MD [Family Provider] - Call in 1-3 days for appt
Isidro Leal MD [Active] - As needed
Activity Restrictions/Additional Instructions:
As we discussed, increase your Prednisone to 40 mg daily for 4 days then go back to 10 mg daily.
Continue your heating pad since it helps
I have provided you the contact information for a general surgeon if you decide you want the mass/lipoma on your lower back removed.
Interventions
Interventions:
*Risk Screen - Suicide Last Done: 03/24/24 15:08
*General Assessment Last Done: 03/24/24 16:07
*Neglect/Abuse Screening Last Done: 03/24/24 15:08
ED- Fall Risk Assessment Last Done: 03/24/24 16:08
*ED COVID-19 Vaccine History Last Done: 03/24/24 16:07
*Nursing Disposition Last Done: 03/24/24 19:12
ED-Musculoskeletal Assessment Last Done: 03/24/24 16:08
Discharge Date and Time
Discharge Date/Time: 03/24/24 19:12
Print Language: CANADIAN
== END 2024-03-24 19:12 | disposition home or self-care (01) ==
LOC: EMR 15:02
PROVIDERS: Emergency Medicine; EMERGENCY PHYSICIAN Emergency Medicine; FAMILY PHYSICIAN Family Medicine
DX: D17.1 Benign lipomatous neoplasm of skin and subcutaneous tissue of trunk (principal); M54.42 Lumbago with sciatica, left side; K50.10 Crohn's disease of large intestine without complications; D64.9 Anemia, unspecified; Z83.79 Family history of other diseases of the digestive system; Z87.891 Personal history of nicotine dependence; Z90.49 Acquired absence of other specified parts of digestive tract
CPT/HCPCS: 99284; 74176; 80053; 81003; 81015; 84703; 85025; 87086

== ENCOUNTER 2024-08-06 22:07 | Inpatient (IN) | payer MEDICARE, OTHER, SELFPAY ==
[2024-08-06] VITALS (12 sets, daily range): BP systolic 111–145; BP diastolic 71–86; BMI 24.7; BMI 24.5
[2024-08-06 14:24] LABS: % Basophils 0.2 % (0-2); % Eosinophils 0.4 % (0-6); % Immature Granulocytes 1.9 % (0-0.5); % Lymphocytes 2.7 % (20.5-51.1); % Monocytes 5.4 % (1.7-9.3); % Neutrophils 89.4 % (42.2-75.2); Absolute Immature Granulocytes 0.2 10^3/uL (0-0.05); Absolute Lymphocytes 0.3 10^3/uL (1.2-3.4); Absolute Monocytes 0.5 10^3/uL (0.1-0.6); Absolute Neutrophils 8.4 10^3/uL (1.4-6.5); Hematocrit 22.5 % (37.0-47.0); Hemoglobin 6.8 g/dL (12.0-16.0); Mean Corp Hgb Conc. 30.2 g/dL (33.0-37.0); Mean Corpuscular Hgb 29.2 pg (27.0-31.0); Mean Corpuscular Volume 96.6 fL (81.0-99.0); Mean Platelet Volume 8.5 fL (7.4-10.4); Nucleated Red Blood Cells % 1.1 %; Platelet Count 313 10^3/uL (130-400); Red Blood Cell Count 2.33 10^6/uL (4.20-5.40); Red Cell Dist. Width 23.8 % (11.5-14.5); White Blood Cell Count 9.4 10^3/uL (4.8-10.8)
[2024-08-06 14:37] LABS: Anisocytosis 1+; Hypochromasia 1+; Normal RBC Morphology No; Polychromasia 1+
[2024-08-06 14:43] LABS: NT-proBNP 772 pg/ml
[2024-08-06 16:38] LABS: ALT (SGPT) 16 U/L (0-35); AST (SGOT) 17 U/L (14-36); Albumin 2.2 g/dl (3.5-5.0); Alkaline Phosphatase 46 U/L (38-126); Blood Urea Nitrogen 17 mg/dl (7-17); Calcium 7.4 mg/dl (8.4-10.2); Carbon Dioxide 20 mmol/L (22-30); Chloride 117 mmol/L (98-107); Glucose 115 mg/dl (70-99); Potassium 3.9 mmol/L (3.5-5.1); Sodium 137 mmol/L (135-145); Total Bilirubin 0.2 mg/dl (0.2-1.3); Total Protein 4.2 g/dl (6.3-8.2); eGFR > 60.00
--- NOTE | 2024-08-06 18:57 | ED.GENMED ---
History of Present Illness
General
Chief Complaint: Swelling
Source: patient
Exam Limitations: none
Time Seen by Provider: 08/06/24 18:26
Nursing documentation reviewed up to this point in time: agreed with
History of Present Illness
History of Present Illness:
Patient is a 38-year-old female with history of Crohn's since age 11 on RINVOQ and prednisone, 5 mg twice daily. She reports 8 days ago she had an iron transfusion and started with increasing lower extremity swelling. She has some degree of
chronic leg swelling but the swelling is far worse than normal. She started Lasix 20 mg twice daily on Monday 6 days ago without improvement.
She is followed by nephrology here at [facility] as well as have fire watchman at [facility] Dr. Luis and Dr. Russ for her anemia. Patient also complains of redness and swelling to right middle finger
No injury. No fevers. She does not feel short of breath she just complains of difficulty walking because of the swelling.
Past History
Past History
ED Past Medical History: Other (crohns, chronic anemia, narcotic abuse) and Other (Previous seizure from narcotic as well as from Wellbutrin withdrawal, Crohn's disease, anemia, previous small bowel obstruction,)
ED Past Surgical History: Appendectomy, Bowel resection ( X5 due to Crohn's), Gynecological and Other (Hernia repair X2)
Social History
Tobacco: Former smoker
Alcohol: None
Drug: Former user (on suboxone)
Personal: Single
Living: with family
Employment: Not employed
Family History
Family History: Other (Crohn's disease)
Review of Systems
Review of Systems
Allergies reviewed?: Yes
All Other Systems: ROS reviewed and negative except as documented in HPI and ROS
Phy Exam
General Physical Exam
General Presentation: no apparent distress
General age: appears stated age
General Skin: warm and dry
General Habitus: normal
General Mental: alert
General Hydration: appears well hydrated
Cardiovascular Exam
Cardiovascular Exam: regular rate/rhythm, no murmur and normal peripheral pulses
Pulmonary Exam
Pulmonary Exam: lungs clear and no respiratory distress
Neurological Exam
Neurological Exam: alert and oriented x3
Musculoskeletal Exam
Musculoskeletal Exam: other (pitting edema to bilateral lower extremities; right middle finger swollen at the PIP and MTP joint minimally red good ROM )
Skin Exam
Skin Exam: normal color and warm/dry
Psychiatric Exam
Psychiatric Exam: normal mood/affect
Course
Orders/Labs/Results
Orders:
Orders
08/06/24 Breakfast
Sodium, 2 Gram
08/06/24 14:02
Finger(s)/Thumb 2 View Rt [CR Finger(s)/thumb Min 2 Vw Rt] Urgent
Comment:
Reason For Exam: injury/ swelling to r middle finger
Indicate Which Finger:: Middle Finger
08/06/24 14:07
CBC/With Diff [Complete Blood Count/With Diff] Urgent
CMP [Comprehensive Metabolic Panel] Urgent
Ferritin Urgent
Comment: ADD ON
Folate Urgent
Comment: ADD ON
Iron Urgent
Comment: ADD ON
Pro-BNP [NT-proBNP] Urgent
Total Iron Binding Urgent
Comment: ADD ON
Vitamin B12 Urgent
Comment: ADD ON
08/06/24 18:53
Type And Crossmatch [Type+Screen] Urgent
08/06/24 19:22
* Blood Bank Products Urgent
'angie Orders: nicole
Blood Bank Products: *Packed RBC Leuko(PRBC's)
Quantity: 2
Transfuse Today: Yes
Reason: Anemia
Comment: obtained
08/06/24 19:23
IV Insert/Care/Rem.- Treatment PRN
08/06/24 20:42
Add On- LAB Urgent
Tests Added?: iron, ferritin, tibc, folate, vit b12
08/06/24 21:21
Admit/Transfer Patient As Directed
Co-Sign Provider:
Level of Care: Inpatient admission
Assign to:: Medical/Surgical
Physician / Group: Htay
Diagnosis: Anemia, Lower Extremity Edema
Reason for Hospitalization: blood transfusion
Expected length of stay greater than two midnights?: Yes
ELOS- Estimated Length of Stay in days: 3
I certify the patient meets the requirements for IP care: Yes
Urinalysis Urgent
08/06/24 21:22
PRN Pain Medication Management As Directed
May give lesser potent ordered pain med per pt: Yes
preference::
Protocol:: Medication orders for pain may be administered in a
manner that supports deferring to patient preference
when the pt is:
- Requesting an ordered lesser potent pain medication.
Least to most potent pain medications are defined
as: acetaminophen < NSAID < tramadol < opioids
(morphine, oxycodone, hydromorphone).
- Requesting a lesser dose of the same medication IF
ORDERED.
- Requesting a less intrusive route of administration
if both routes are prescribed by the provider (PO <
IV).
08/06/24 21:24
Code Status As Directed
Resuscitation Status: Full Code
08/06/24 22:00
Flush (0.9% Sodium Chloride) [Flush (Nss)] See Dose Instructions IV PER PROTOCOL
08/06/24 22:52
Acetaminophen [Tylenol] 650 mg PO Q4HPRN PRN
Calcitonin,[place] [Miacalcin/Fortical Nasal [place]] See Dose Instructions NASAL HS
norgestimate-ethinyl estradiol See Dose Instructions PO HS
upadacitinib [Rinvoq] See Dose Instructions PO HS
08/06/24 22:52
Echo 2D MMode Color/Doppler Routine
Reason for Study: lower extremity edema
Activity As Directed
Activity Level: Out of Bed-Early Mobility
With Assistance
Hemetest Stools As Directed
Comment: Notify Physician of any positive results; May Stop if Negative x 3
I&O [Intake/ Output] As Directed
Frequency: q12h
Sequential Compression Device [Pneumatic Compression Sleeves] As Directed
Type: Thigh high
Vital Signs As Directed
Frequency: Per unit guidelines
Weight As Directed
Frequency: Daily
DX Deep Vein Thrombosis Video Routine
08/06/24 23:00
Furosemide [Lasix] 20 mg IV ONCE ONE
Magnesium Oxide 500 mg PO HS
08/07/24 06:00
Basic Metabolic Panel IN AM
Complete Blood Count/No Diff IN AM
Magnesium IN AM
Phosphorus IN AM
08/07/24 08:00
Buprenorphine [Subutex] 4 mg SL TID@0800,1200,1600
Calcium Carbonate [Oscal Delfino 500] 1,000 mg PO BID
Cholecalciferol (Vitamin D3) [VITAMIN D3 (cholecalciferol)] 125 mcg PO BID
Furosemide [Lasix] 20 mg PO DAILY
Multivitamin [Theragran] 1 tablet PO DAILY
Nicotine [Nicoderm Transdermal] 7 mg TRANSDERM Q24H
Pantoprazole [Protonix] 40 mg PO DAILY
Prednisone [Deltasone] 5 mg PO BID
Sodium/Potassium Phosphate Mix [Neutra-Phos Powder Packet] 1 mg PO BID
08/07/24 18:00
Escitalopram Oxalate [Lexapro] 10 mg PO QPM
Abnormal Lab Results
08/06/24 08/06/24
14:07 18:53
RBC 2.33 L 10^6/uL
(4.20-5.40)
Hgb 6.8 L* g/dL
(12.0-16.0)
Hct 22.5 L %
(37.0-47.0)
MCHC 30.2 L g/dL
(33.0-37.0)
RDW 23.8 H %
(11.5-14.5)
Abs Immat Gran (auto) 0.2 H 10^3/uL
(0-0.05)
Absolute Neuts (auto) 8.4 H 10^3/uL
(1.4-6.5)
Absolute Lymphs (auto) 0.3 L 10^3/uL
(1.2-3.4)
Immature Gran % 1.9 H %
(0-0.5)
Neutrophils % 89.4 H %
(42.2-75.2)
Lymphocytes % 2.7 L %
(20.5-51.1)
Chloride 117 H mmol/L
(98-107)
Carbon Dioxide 20 L mmol/L
(22-30)
Glucose 115 H mg/dl
(70-99)
Calcium 7.4 L mg/dl
(8.4-10.2)
Ferritin 231.0 H ng/ml
(6.24-137)
Total Protein 4.2 L g/dl
(6.3-8.2)
Albumin 2.2 L g/dl
(3.5-5.0)
Vitamin B12 < 159 L pg/ml
(239-931)
Crossmatch IS Only See Detail
MTS Gel Crossmatch See Detail
08/06/24 14:07
08/06/24 14:07
Vital Signs
Initial and Last Documented VS:
Initial Vital Signs
Temp Pulse Resp BP Pulse Ox
98.4 F 103 20 123/76 100
08/06/24 13:55 08/06/24 13:55 08/06/24 13:55 08/06/24 13:55 08/06/24 13:55
Last Documented Vital Signs
Temp Pulse Resp BP Pulse Ox
98.3 F 86 16 133/85 100
08/06/24 23:03 08/07/24 00:17 08/06/24 23:03 08/07/24 00:17 08/06/24 23:03
Fingernail Sculpturer consulted with Physician
Fingernail Sculpturer consulted with physician?: Yes
Name of Physician Consulted: Nel
MDM/Problems Addressed
Differential Diagnosis Includes:
Not limited to lower extremity edema, less likely CHF, electrolyte abnormality
MDM/Problems Addressed:
Patient is a 38-year-old female history of Crohn's disease on chronic prednisone 5 mg twice daily history of anemia last iron transfusion 8 days ago presents with increasing bilateral lower extremity edema despite 20 mg twice daily for the past 5
days. She has some component of chronic leg swelling but this is new. She denies shortness of breath. In addition her hemoglobin is found to be low at 6.8 she denies any dark stools bloody stools. Her calcium came back as low however her albumin
is low and corrected her calcium is not low.
She denies any fever chills lungs are clear she is not short of breath not hypoxic white count normal
Patient will need blood for anemia and we will need admission for possible diuresis for lower extremity swelling. blood consent signed.
Chronic conditions affecting care:
Crohn's on chronic steroids /chronic anemia
*Radiology
Radiology exam reviewed: radiology read reviewed
*Pulse Oximetry
SaO2: 99
Oxygen Mode of Delivery: Room air
Patient hypoxic: no
*Critical Care Note
Total Time (30-74mins, 75-104mins- exclusive of procedures): Not Applicable
ED Attending Note
-
Portions of this chart may have been created with voice recognition software.� Occasional wrong word or��sound alike� substitutions may have occurred due to the inherent limitations of voice recognition software.
Discharge Plan
Departure
Patient Disposition: Admit
Date of Disposition: 08/06/24
Time of Disposition: 20:06
Admit to: Med/Surg
Admit to doctor: hospitalist
Presentation/result/management discussed w/ accepting MD/DO: Hospitalist
Patient with high blood pressure during this ER visit?: Yes
Condition: Fair
Covid-19: Not Applicable
Discharge Problem:
Bilateral leg edema, Anemia
Interventions
Interventions:
*Risk Screen - Suicide Last Done: 08/06/24 13:55
*General Assessment Last Done: 08/06/24 13:55
*Neglect/Abuse Screening Last Done: 08/06/24 13:55
*ED- Fall Risk Assessment Last Done: 08/06/24 13:55
*ED COVID-19 Vaccine History Last Done: 08/06/24 13:55
*Nursing Disposition Last Done: 08/06/24 22:44
ED- Cardiac Assessment Last Done: 08/06/24 18:46
ED- Pulmonary Assessment Last Done: 08/06/24 18:46
ED-Skin Assessment Last Done: 08/06/24 18:46
Discharge Date and Time
Discharge Date/Time: 08/06/24 22:45
--- NOTE | 2024-08-06 20:41 | HPS.HSE ---
Family Physician
-
Family Physician: Petrona Chavarria
Chief Complaint
-
Lower Extremity Edema
History of Present Illness
Patient is a 38 y/o female past medical history of Crohn's Disease, chronic anemia, prior narcotic abuse, depression and hypoalbuminemia who presents with increasing lower extremity edema. Patient reports she has had some lower extremity edema for
quite sometime but it got significantly worse since her iron infusion last week. She was started on Lasix, and notes she has been urinating a lot but states the edema is not improving. She reports difficulty walking due to the edema but denies
shortness of breath.
Medical History
Past Medical History
Past Medical History: Reports Other
Additional Past Medical History:
Crohns' Disease
Chronic Anemia
Multiple Electrolyte Abnormalities
Narcotic Abuse
GERD
Depression
Osteoporosis
Past Surgical History: Reports Other
Additional Past Surgical History:
Bowel Resection
Appendectomy
Social History
Tobacco: Former Smoker
Family History
Family History: Not pertinent
Allergies / Home Medications
Allergies reflects when Allergies were last updated in [facility].
Home Medications with original date entered in [facility]
Allergy/Medication List:
Allergies
Allergy/AdvReac Type Severity Reaction Status Date / Time
iron (From Venofer) Allergy Shortness Verified 08/06/24 13:54
of Breath
kiwi Allergy Anaphylaxis Verified 08/06/24 13:54
Home Medications
escitalopram oxalate 10 mg tablet 10 mg PO QPM Mental Health/Anxiety 04/18/20
pantoprazole 40 mg tablet,delayed release 40 mg PO DAILY Gastrointestinal issue 04/18/20
multivitamin with folic acid 400 mcg tablet (Tab-A-Anna) 1 tab PO DAILY Supplement 03/31/21
buprenorphine 8 mg-naloxone 2 mg sublingual tablet 0.5 tab sublingual TID@0800,1200,1600 Opioid use disorder 02/02/24
cyanocobalamin (vitamin B-12) 1,000 mcg/mL injection solution 1,000 mcg IM QMONTH Supplement 02/02/24
norgestimate 0.25 mg-ethinyl estradiol 0.035 mg tablet 1 tab PO HS CONTROL 02/02/24
upadacitinib 30 mg tablet,extended release 24 hr (Rinvoq) 30 mg PO HS CROHN'S 02/02/24
calcitonin (salmon) 200 unit/actuation nasal spray 1 spray intranasal HS 08/06/24
calcium carbonate 1,200 mg PO BID 08/06/24
cholecalciferol (vitamin D3) 125 mcg (5,000 unit) tablet (Vitamin D3) 125 mcg PO BID 08/06/24
furosemide 20 mg tablet 20 mg PO DAILY 08/06/24
magnesium oxide 500 mg capsule 500 mg PO HS 08/06/24
nicotine 7 mg/24 hr daily transdermal patch 1 patch transdermal Q24H 08/06/24
potassium 99 mg tablet 99 mg PO DAILY 08/06/24
prednisone 5 mg tablet 5 mg PO BID 08/06/24
sodium di- and monophosphate-potassium phos monobasic 250 mg tablet (Phospha Neutral) 1 tab PO BID 08/06/24
Review of Systems
-
History Source: Patient
A 12 point ROS was completed and negative except as noted: Yes
Constitutional: Denies Fever or Chills
Respiratory: Denies Cough or Trouble Breathing
Cardiac: Denies Chest Pain or Palpitations
Abdomen/GI: Denies Abdominal Pain, Nausea, Vomiting, Diarrhea, Constipated, Bloody Stools or Black Stools
Physical Exam
Vital Signs
Vital Signs
Temp Pulse Resp BP Pulse Ox
98.4 F 82 14 117/80 100
08/06/24 13:55 08/06/24 19:30 08/06/24 19:30 08/06/24 19:00 08/06/24 19:30
Physical Exam
General: Comfortable, Conversant and Other (Appears very pale)
HEENT: Anicteric and Moist mucous membranes
Respiratory: Clear and Non Labored Respirations
Cardiac: S1/S2 and Regular Rhythm; No Murmur
GI: Soft and Non Tender
Rectal: Deferred by Provider
Musculoskeletal: No Clubbing, No Cyanosis and Other (+3 pitting edema bilateral lower extremities)
Skin: Warm and Dry
Neuro: Awake, Alert, Oriented and Nonfocal/grossly intact
Psych: Calm
Laboratory Results
-
08/06/24 14:07
08/06/24 14:07
Laboratory Results
Total Bilirubin 0.2 mg/dl (0.2-1.3) 08/06/24 14:07
AST 17 U/L (14-36) 08/06/24 14:07
ALT 16 U/L (0-35) 08/06/24 14:07
Alkaline Phosphatase 46 U/L (38-126) 08/06/24 14:07
Data Reviewed
-
Lab Data: Labs Reviewed by me
Impression/Plan
-
Bilateral Lower Extremity Edema, suspect related to Hypoalbuminemia
-Encourage high protein diet
-Add low sodium diet
-Give Lasix 20mg IV with blood transfusion, and continue Lasix 20mg IV Daily
-Check Echocardiogram but low suspicion for heart failure
Acute on Chronic Anemia
-Patient denies black or bloody stools
-Continue to heme-test stools
-Check iron studies, vit b12 and folate
-Transfuse 2 units PRBCs
Crohn's Disease
-Continue prednisone and Rinvoq as prior to admission
Hx Multiple Electrolyte Abnormalities
-Continue supplements as prior to admission
-Monitor calcium, phosphorus and magnesium levels
Narcotic Abuse
-Continue Suboxone
GERD
-Continue Protonix
-Consider transitioning from Protonix to Pepcid given her prior episodes of low phosphorus, magnesium and calcium
Depression
-Continue Lexapro
DVT proph: SCDs
Code Status: Full Code
--- NOTE | 2024-08-06 20:43 | W.PN.UPDATE ---
Addendum entered and electronically signed by Reid Navarro MD 08/06/24 21:30:
Hypoalbuminemia suspected Protein losing rather than synthesis dysfunction origins like Nephrotic syndrome vs enteropathy�
- She is known� [employer] and [employer].
Worsening chr Alvarez edema suspect multifactorial origins ( Venous insufficiency, Fluid retention due to Prednisone, Hypoalbuminemia)
- cont . FIELD OBSERVER PO Lasix 40 daily
- additional IV Lasix 20 mg in between 2 units of PRBC
Original Note:
Update Note
Progress Note Update
This note serves as an addendum to the H&P by saxophone player PRUDENCIO Citlaly ROSY
HPI
HPI
38F Former smoker, chr Suboxone , [place] Substance use disorder, HX Crohn dz on Rinvoq and Prednisone, AoCDz Vit D def, chr B/l Alvarez edema, severe hypoalbumnema seen at ER:
- increasing lower extremity swelling nor improvement with PO Lasix 20 mg twice daily 6 days ago on Monday
- 8 days ago she had an iron transfusion
- Hgb 6.9
- deneid dark bloody stools
- She is followed by nephrology here at [facility] as well as have special projects coordinator at [facility] Dr. Luis and Dr. Russ for her anemia.
Vital Signs
Temp Pulse Resp BP Pulse Ox
98.4 F 82 14 117/80 100
08/06/24 13:55 08/06/24 19:30 08/06/24 19:30 08/06/24 19:00 08/06/24 19:30
PE
Gen: pale complexion , NAD
HEENT: pale conjunctiva
Neck:No JVD
Lungs:CTA
Cor: RRR S1 S2
Abdomen: soft NT NG NRT
MS: b/l Alvarez pitting edema
Psych: o mood
Abn labs
03/24/24 08/06/24
15:15 14:07
Hgb 11.5 L 6.8 L*
MCV 91.4 96.6
Potassium 3.9
Carbon Dioxide 20 L
BUN 17
Creatinine 0.6
eGFR > 60.00
Calcium
Albumin corrected Calcium 7.4 L
8.8
Qjl-N-Gujcruazpyd Pept 772
Albumin 2.2 L
R Middle finger XR
- No evidence of acute fracture or dislocation.
03/24/24 CT AP Without Iv Or Oral
No CT evidence for nephroureterolithiasis or hydronephrosis.
Chronic bowel changes compatible with the provided history of Crohn's disease with evidence for previous bowel resections. Large volume of colonic stool suspicious for constipation.
Last hospitalist admission: 02/02/24 - 02/05/24
Discharge Diagnosis/Procedures:
-Hypocalcemia
-Hypophosphatemia
-Hypomagnesemia
-Vitamin D deficiency
ASSESSMENT & PLAN
Pending Rx reconciliation
Worsening Chr anemia with elements of hemodiluting due to Fluid retention ?
DDX Crohn flare
Chr prednisone dependent
Relative Hypotension
Recent IV Fe Tx
- Blood consent scanned at ER
- agree with 2 PRBCs
- Trend H&H
- Low Na diet
Chr B/l Alvarez edema - no evidence of acute HF
Suspect dependent venous insufficience edema
Associated with hypoalbuminemia ? Protein loosing enteropathy
- Wound consult fo compression stocking
Corrected Ca is 8.8
Hypocalcemia
Vit D Def
Former substance use disorder
- On Suboxone
DVT Px: SCD
Code: Full
IP MS
[2024-08-06 21:28] LABS: Iron 55 ug/dl (37-170)
[2024-08-06 21:37] LABS: Percent Saturation 20 % (20-50); Total Iron Binding Capacity 275 ug/dl (265-497)
[2024-08-07] VITALS (10 sets, daily range): BP systolic 97–138; BP diastolic 51–88; BMI 24.2
[2024-08-07 00:03] LABS: Folate 8.6 ng/ml (2.76-20); Vitamin B12 < 159 pg/ml (239-931)
[2024-08-07] MEDS: MIACALCIN/FORTICAL NASAL SPRAY 1 SPRAY NASAL ×2 (00:08→21:52)
[2024-08-07] MEDS: MAGNESIUM OXIDE 500 MG PO ×2 (00:13→21:52)
[2024-08-07] MEDS: LASIX 20 MG IV (00:17)
[2024-08-07 03:00] LABS: Urine Albumin Negative (Neg - Trace); Urine Bilirubin Negative (Negative); Urine Character Clear (Clear); Urine Glucose Negative (Negative); Urine Ketone Negative (Negative); Urine Leukocyte Negative (Negative); Urine Nitrite Negative (Negative); Urine Occult Blood Negative (Negative); Urine Specific Gravity 1.015 (<1.030); Urine Urobilinogen Negative (Neg - 1+)
[2024-08-07 03:01] LABS: Urine Color Straw
--- NOTE | 2024-08-07 03:19 | TRANSFER ---
Pt admitted to [facility] from ED via stretcher. Pt came to floor with 1 unit of blood running by gravity with a blood warmer. Large amount of ait in tubing and blood not infusing so the RN had to re prime the warmer tubing. Approximately 5 ml of blood lost
due to priming. Bp 133/85 P 86 T 99.3 R 16 O2 98 on room air. Pt oriented to room, call collier with in reach, plan of care ongoing.
[2024-08-07 06:29] LABS: Hematocrit 27.9 % (37.0-47.0); Hemoglobin 8.7 g/dL (12.0-16.0); Mean Corp Hgb Conc. 31.2 g/dL (33.0-37.0); Mean Corpuscular Volume 89.7 fL (81.0-99.0); Mean Platelet Volume 8.8 fL (7.4-10.4); Platelet Count 238 10^3/uL (130-400); Red Blood Cell Count 3.11 10^6/uL (4.20-5.40); Red Cell Dist. Width 23.9 % (11.5-14.5); White Blood Cell Count 5.4 10^3/uL (4.8-10.8)
[2024-08-07 06:56] LABS: Blood Urea Nitrogen 11 mg/dl (7-17); Calcium 6.9 mg/dl (8.4-10.2); Carbon Dioxide 22 mmol/L (22-30); Chloride 113 mmol/L (98-107); Estimated Creatinine Clearance 104 ml/min; Glucose 136 mg/dl (70-99); Magnesium 1.8 mg/dl (1.6-2.3); Phosphorus 1.3 mg/dl (2.5-4.5); Potassium 3.4 mmol/L (3.5-5.1); Sodium 139 mmol/L (135-145); eGFR > 60.00
[2024-08-07] MEDS: SUBUTEX 4 MG SL ×3 (08:31→16:57)
[2024-08-07] MEDS: PROTONIX 40 MG PO (08:32)
[2024-08-07] MEDS: OSCAL CAL 500 1000 MG PO ×2 (08:33→20:41)
[2024-08-07] MEDS: LASIX 20 MG PO (08:34)
[2024-08-07] MEDS: DELTASONE 5 MG PO ×2 (08:34→20:41)
[2024-08-07] MEDS: THERAGRAN 1 TABLET PO (08:34)
[2024-08-07] MEDS: VITAMIN D3 (cholecalciferol) 125 MCG PO ×2 (08:34→20:41)
[2024-08-07] MEDS: NICODERM TRANSDERMAL 7 MG TRANSDERM (08:37)
[2024-08-07] MEDS: CALCIUM GLUCONATE 100 IV (08:39)
[2024-08-07] MEDS: NEUTRA-PHOS POWDER PACKET 250 MG PO ×2 (08:44→20:41)
[2024-08-07 08:51] LABS: ALT (SGPT) 15 U/L (0-35); AST (SGOT) 17 U/L (14-36); Albumin 2.1 g/dl (3.5-5.0); Alkaline Phosphatase 47 U/L (38-126); Direct Bilirubin 0.3 mg/dl (0.0-0.4); Total Bilirubin 0.4 mg/dl (0.2-1.3)
--- NOTE | 2024-08-07 11:12 | W.PN.HOSP.TC ---
Today's Communication/Plan
-
start b12
replete electrolyts
echo pending
nephro input
heme test pending
no active luminal bleeding noted
Assessment / Plan
Assessment / Plan
General: Comfortable, Conversant and Other (Appears very pale)
HEENT: Anicteric and Moist mucous membranes
Respiratory: Clear and Non Labored Respirations
Cardiac: S1/S2 and Regular Rhythm; No Murmur
GI: Soft and Non Tender
Rectal: Deferred by Provider
Musculoskeletal: No Clubbing, No Cyanosis and Other (+3 pitting edema bilateral lower extremities)
Skin: Warm and Dry
Neuro: Awake, Alert, Oriented and Nonfocal/grossly intact
Psych: Calm
Bilateral Lower Extremity Edema, suspect related to Hypoalbuminemia
-Encourage high protein diet
-Add low sodium diet
-Give Lasix 20mg IV with blood transfusion, and continue Lasix 20mg IV Daily
-Check Echocardiogram but low suspicion for heart failure
-will ask nephro to eval
Acute on Chronic Anemia
B12 def
-Patient denies black or bloody stools
-Continue to heme-test stools
-start b12
-Transfused 2 units PRBCs
-Hgb 8.7. Due for [facility] f/u for EGD/Colon next month.
Crohn's Disease
-Continue prednisone and Rinvoq as prior to admission
Hx Multiple Electrolyte Abnormalities
-Continue supplements as prior to admission
-Monitor calcium, phosphorus and magnesium levels
-replete prn. Cont neutra-phos, calcium supplements,
Narcotic Abuse
-Continue Suboxone
Depression
-Continue Lexapro
DVT proph: SCDs
Code Status: Full Code
Anticipated Discharge: > 48 hours
Subjective/Interval History
-
Date of Service: August 07, 2024
states voiding alot
states of persistent edema
Objective Data
-
Labs:
Laboratory Results
08/07/24
05:47
WBC 5.4
Hgb 8.7 L D
Hct 27.9 L
Plt Count 238 D
Sodium 139
Potassium 3.4 L
Chloride 113 H
Carbon Dioxide 22
BUN 11
Creatinine 0.6
Glucose 136 H
Calcium 6.9 L*
Total Bilirubin 0.4
AST 17
ALT 15
Alkaline Phosphatase 47
Vital Signs:
Vital Signs
Temp Pulse Resp BP Pulse Ox
98.1 F 78 20 119/79 97
08/07/24 07:00 08/07/24 08:34 08/07/24 07:00 08/07/24 08:34 08/07/24 08:15
I&O
08/06/24 08/07/24 08/08/24
06:59 06:59 06:59
Intake Total 975 / 975
Output Total 1500 / 1500
Balance -525 / -525
Data Reviewed
-
Total Time Spent with Patient (in minutes): 55
--- NOTE | 2024-08-07 11:45 | W.CON.NEPH ---
Consultation
-
Date/Time Consultation Requested: 08/07/24 1118
Date/Time Consultation Performed: 08/07/24 1140
Requesting Provider: Binu Kim
Performing Provider: nuha Zendejas
Reason for Consultation: Multiple electrolyte abnormality and edema
Medical History
-
Chief Complaint: LE edema
History of Present Illness:
38 y/o female past medical history of Crohn's Disease on prednisone, Rinvoq, chronic anemia with h/o transfusion-follows hematology, prior narcotic abuse on buprenorphine, depression and hypoalbuminemia anxiety on lexapro, h/o severe vit D def on
OTC high dose D3, hypocalcemia on po calcium, hypophosphatemia on neurtaphos, hypomagnesemia on po magnesium who presents with increasing lower extremity edema on 08/06. Patient reports she has had some lower extremity edema for quite sometime and
takes lasix daily but it got significantly worse since her iron infusion last week. With worsenign edema She reports difficulty walking and has mild shortness of breath. On arrival to ER hb noted 6.8, rachel 7.4, alb 2.2, cr 0.6. s/p 2 PRBC and hb
better at 8.7, Phos today at 1.3. Nephrology asked to further eval of her electrolyte issues.
She offers no cp or sob currently. edema is improving with IV lasix. No abd pain or n/v. She normally has abd discomfort after eating from Crohns. No blood in stools.
Past Medical History
Crohn's disease, Anemia, multiple bowel resections , hernia repair
hypocalcemia
LE edema
hypomagnesemia
vit D def
GERD
depression
osteoporosis
Past Surgical History: Appendectomy and Other (bowel resection, hernia repair)
Social History
former smoker
Tobacco: Former Smoker
Alcohol: None
Living: With Family
Family History
no renal disease
Family History: Not Pertinent
Allergies / Home Medications
Allergy/AdvReac Type Severity Reaction Status Date / Time
iron (From Venofer) Allergy Shortness Verified 08/06/24 13:54
of Breath
kiwi Allergy Anaphylaxis Verified 08/06/24 13:54
�Medication �Instructions �Recorded �Confirmed �Type
escitalopram oxalate 10 mg tablet 10 mg PO QPM Mental Health/Anxiety 04/18/20 08/06/24 History
pantoprazole 40 mg tablet,delayed 40 mg PO DAILY Gastrointestinal 04/18/20 08/06/24 History
release issue
multivitamin with folic acid 400 1 tab PO DAILY Supplement 03/31/21 08/06/24 History
mcg tablet (Tab-A-Anna)
buprenorphine 8 mg-naloxone 2 mg 0.5 tab sublingual 02/02/24 08/06/24 History
sublingual tablet TID@0800,1200,1600 Opioid use
disorder
cyanocobalamin (vitamin B-12) 1,000 mcg IM QMONTH Supplement 02/02/24 08/06/24 History
1,000 mcg/mL injection solution
norgestimate 0.25 mg-ethinyl 1 tab PO HS CONTROL 02/02/24 08/06/24 History
estradiol 0.035 mg tablet
upadacitinib 30 mg tablet,extended 30 mg PO HS CROHN'S 02/02/24 08/06/24 History
release 24 hr (Rinvoq)
calcitonin (salmon) 200 1 spray intranasal HS Hormone 08/06/24 08/06/24 History
unit/actuation nasal spray
calcium carbonate 1,200 mg PO BID Supplement 08/06/24 08/06/24 History
cholecalciferol (vitamin D3) 125 125 mcg PO BID Supplement 08/06/24 08/06/24 History
mcg (5,000 unit) tablet (Vitamin
D3)
furosemide 20 mg tablet 20 mg PO DAILY Fluid 08/06/24 08/06/24 History
Retention/Swelling
magnesium oxide 500 mg capsule 500 mg PO HS Supplement 08/06/24 08/06/24 History
nicotine 7 mg/24 hr daily 1 patch transdermal Q24H cigarette 08/06/24 08/06/24 History
transdermal patch withdraw
potassium 99 mg tablet 99 mg PO DAILY Supplement 08/06/24 08/06/24 History
prednisone 5 mg tablet 5 mg PO BID inflammation 08/06/24 08/06/24 History
sodium di- and 1 tab PO BID Supplement 08/06/24 08/06/24 History
monophosphate-potassium phos
monobasic 250 mg tablet (Phospha
Neutral)
Review of Systems
-
All other systems: Negative unless noted
Physical Exam
Vital Signs
Vital Signs
Temp Pulse Resp BP Pulse Ox
99.2 F 85 19 138/88 97
08/07/24 11:00 08/07/24 11:00 08/07/24 11:00 08/07/24 11:00 08/07/24 11:00
Lab Results
WBC 5.4 10^3/uL (4.8-10.8) 08/07/24 05:47
RBC 3.11 10^6/uL (4.20-5.40) L 08/07/24 05:47
Hgb 8.7 g/dL (12.0-16.0) L D 08/07/24 05:47
Hct 27.9 % (37.0-47.0) L 08/07/24 05:47
Plt Count 238 10^3/uL (130-400) D 08/07/24 05:47
Sodium 139 mmol/L (135-145) 08/07/24 05:47
Potassium 3.4 mmol/L (3.5-5.1) L 08/07/24 05:47
Chloride 113 mmol/L (98-107) H 08/07/24 05:47
Carbon Dioxide 22 mmol/L (22-30) 08/07/24 05:47
BUN 11 mg/dl (7-17) 08/07/24 05:47
Creatinine 0.6 mg/dL (0.6-1.0) 08/07/24 05:47
eGFR > 60.00 08/07/24 05:47
Glucose 136 mg/dl (70-99) H 08/07/24 05:47
Calcium 6.9 mg/dl (8.4-10.2) L* 08/07/24 05:47
Phosphorus 1.3 mg/dl (2.5-4.5) L 08/07/24 05:47
Vuv-J-Hzlwfapzylr Pept 772 pg/ml 08/06/24 14:07
Albumin 2.1 g/dl (3.5-5.0) L 08/07/24 05:47
Physical Exam
General: Awake, Alert, Oriented, AOx3, No Distress and Nontoxic
HEENT: Anicteric, Conjunctivae Clear and Facial Symmetry
Respiratory: Clear, Normal Excursion and Nonlabored Respirations
Breast: Deferred by me
Abdomen: Soft, Nontender and Nondistended
Musculoskeletal: No Cyanosis and Edema (1+)
Skin: No Rash
Neuro: Nonfocal/Grossly Intact
Psych: Mood/afflect pleasant, Insight/judgement good and Appropriate
Assessment/Plan
-
IMP:
Bilateral Lower Extremity Edema, suspect related to Hypoalbuminemia
Acute on Chronic Anemia
B12 def
Crohn's Disease- prednisone and Rinvoq
Hx Multiple Electrolyte Abnormalities-follow Dr Clemente
Hypocalcemia
hypokalemia
hypomagnesemia
Hypophosphatemia
VIt D def
SHPTH
Narcotic Abuse
Depression
plan:
A/w worsening LE edema despite lasix [employer]
reports symp worse after Injectafer for anemia last week
cont lasix for edema , seem to respond well
replace k
corrected rachel low normal range, cont po calcium and vit D
note she is on Calcitonin nasal spray this can also contribute low calcium too
check I rachel in am
would replace phos IV and cont neutra phos
note phos can be falsely low post IV fe too
check mg level, she is on PPI
bp stable
monitor h/h, replace b12 , follows heme out pt
d/w pt in detail
[2024-08-07] MEDS: KCL 40 MEQ PO (12:20)
--- NOTE | 2024-08-07 12:22 | CM ---
Patient seen at bedside
IA completed
Lives with parents and children in a 2 story home, [address], flight of stairs to bed/bath
PLOF: Independent
Denies DME
Denies VN/Rehab
Denies insecurities
PCP: Petrona Chavarria
Pharmacy: [facility]
PLAN: home, no needs when medically stable
[2024-08-07] MEDS: SODIUM PHOSPHATE 255 MEQ IV (16:54)
[2024-08-07] MEDS: LEXAPRO 10 MG PO (17:00)
[2024-08-08 03:29] VITALS: BP 99/60
[2024-08-08 06:00] VITALS: BMI 23.7
[2024-08-08 06:17] LABS: % Basophils 0.3 % (0-2); % Eosinophils 0.8 % (0-6); % Immature Granulocytes 2.5 % (0-0.5); % Lymphocytes 14.8 % (20.5-51.1); % Monocytes 10.1 % (1.7-9.3); % Neutrophils 71.5 % (42.2-75.2); Absolute Immature Granulocytes 0.1 10^3/uL (0-0.05); Absolute Lymphocytes 0.5 10^3/uL (1.2-3.4); Absolute Monocytes 0.4 10^3/uL (0.1-0.6); Absolute Neutrophils 2.6 10^3/uL (1.4-6.5); Hemoglobin 9.1 g/dL (12.0-16.0); Mean Corp Hgb Conc. 31.4 g/dL (33.0-37.0); Mean Corpuscular Hgb 28.3 pg (27.0-31.0); Mean Corpuscular Volume 90.3 fL (81.0-99.0); Mean Platelet Volume 8.5 fL (7.4-10.4); Nucleated Red Blood Cells % 1.1 %; Platelet Count 242 10^3/uL (130-400); Red Blood Cell Count 3.21 10^6/uL (4.20-5.40); Red Cell Dist. Width 24.6 % (11.5-14.5); White Blood Cell Count 3.6 10^3/uL (4.8-10.8)
[2024-08-08 07:21] LABS: ALT (SGPT) 15 U/L (0-35); AST (SGOT) 14 U/L (14-36); Albumin 2.1 g/dl (3.5-5.0); Alkaline Phosphatase 47 U/L (38-126); Blood Urea Nitrogen 12 mg/dl (7-17); Calcium 7.4 mg/dl (8.4-10.2); Carbon Dioxide 27 mmol/L (22-30); Chloride 113 mmol/L (98-107); Estimated Creatinine Clearance 104 ml/min; Glucose 110 mg/dl (70-99); Phosphorus 2.1 mg/dl (2.5-4.5); Potassium 4.1 mmol/L (3.5-5.1); Sodium 138 mmol/L (135-145); Total Bilirubin 0.3 mg/dl (0.2-1.3); eGFR > 60.00
[2024-08-08] MEDS: SUBUTEX 4 MG SL ×3 (07:40→16:21)
[2024-08-08] MEDS: PROTONIX 40 MG PO (07:40)
[2024-08-08] MEDS: DELTASONE 5 MG PO ×2 (07:41→19:20)
[2024-08-08] MEDS: VITAMIN D3 (cholecalciferol) 125 MCG PO ×2 (07:41→19:20)
[2024-08-08] MEDS: THERAGRAN 1 TABLET PO (07:41)
[2024-08-08] MEDS: NEUTRA-PHOS POWDER PACKET 250 MG PO ×2 (07:41→19:20)
[2024-08-08] MEDS: OSCAL CAL 500 1000 MG PO ×2 (07:44→19:20)
[2024-08-08] MEDS: LASIX 20 MG IV (07:45)
[2024-08-08] MEDS: CYANOCOBALAMIN 1000 MCG IM (07:50)
[2024-08-08 07:54] VITALS: BP 107/66
[2024-08-08] MEDS: NICODERM TRANSDERMAL 7 MG TRANSDERM (07:58)
--- NOTE | 2024-08-08 08:51 | PN.CDI ---
CDI
- -
CDI:
Physician Documentation Request
Admit Date: 08/06/24 22:07
Dear Doctor Alta,
Patient admitted with anemia.
06/07 Nephrology Consult: 'replace k'
08/07 Potassium level: 3.4
08/07 Potassium chloride 40 meq PO administered
Based on the above, could you clarify in the progress notes, the appropriate diagnosis, if significant, that supports the above abnormalities and additional evaluation, monitoring and/or treatment rendered:
Hypokalemia
Abnormal lab value insignificant
Other
Use of terms such as suspected, likely, concern for, or probable (associated with a specific diagnosis that is being evaluated, monitored, or treated as if it exists) are acceptable and can be coded in the inpatient setting, when documented at the
time of discharge.
Thank you,
Tracy Burrows RN, BSN
CDI Specialist
Available via [employer] text
Please use your independent medical judgment in providing your response.
--- NOTE | 2024-08-08 10:34 | W.PN.HOSP.TC ---
Addendum entered and electronically signed by Binu Holm MD 08/08/24 13:38:
hypokalemia
Original Note:
Today's Communication/Plan
-
replete phos-cont neutra phos
cont iv lasix
LE compression therapy
Assessment / Plan
Assessment / Plan
General: Comfortable, Conversant and Other (Appears very pale)
HEENT: Anicteric and Moist mucous membranes
Respiratory: Clear and Non Labored Respirations
Cardiac: S1/S2 and Regular Rhythm; No Murmur
GI: Soft and Non Tender
Rectal: Deferred by Provider
Musculoskeletal: No Clubbing, No Cyanosis and Other (+2 pitting edema bilateral lower extremities), mild edema noted in UE
Skin: Warm and Dry
Neuro: Awake, Alert, Oriented and Nonfocal/grossly intact
Psych: Calm
Anasarca with worsening of lower extremity edema suspect related to Hypoalbuminemia
-Encourage high protein diet
-Refusing low-sodium diet
-Give Lasix 20mg IV with blood transfusion, and continue Lasix 20mg IV Daily
-Echo with EF of 60 to 65%. No regional wall motion abnormality. Normal right ventricular size and function. Mild to moderate mitral regurgitation.
-nephro following
Acute on Chronic Anemia
B12 def
-Patient denies black or bloody stools
-Continue to heme-test stools
-start b12
-Transfused 2 units PRBCs
-Hgb 9.1 . Due for OP [facility] f/u for EGD/Colon next month.
Crohn's Disease
-Continue prednisone and Rinvoq as prior to admission
Hx Multiple Electrolyte Abnormalities-
-Continue supplements as prior to admission
-Monitor calcium, phosphorus and magnesium levels
-replete prn. Cont neutra-phos, calcium supplements,
-corrected calcium normal.
Narcotic Abuse
-Continue Suboxone
Depression
-Continue Lexapro
DVT proph: SCDs
Code Status: Full Code
Anticipated Discharge: 24 - 48 hours
Subjective/Interval History
-
Date of Service: August 08, 2024
States some mild improvement in lower extremity edema
Objective Data
-
Labs:
Laboratory Results
08/08/24
06:07
WBC 3.6 L
Hgb 9.1 L
Hct 29.0 L
Plt Count 242
Sodium 138
Potassium 4.1
Chloride 113 H
Carbon Dioxide 27
BUN 12
Creatinine 0.6
Glucose 110 H
Calcium 7.4 L
Total Bilirubin 0.3
AST 14
ALT 15
Alkaline Phosphatase 47
Vital Signs:
Vital Signs
Temp Pulse Resp BP Pulse Ox
97.8 F 80 14 107/66 97
08/08/24 07:54 08/08/24 07:54 08/08/24 07:54 08/08/24 07:54 08/08/24 07:54
I&O
08/07/24 08/08/24 08/09/24
06:59 06:59 06:59
Intake Total 975 / 975
Output Total 1500 / 1500
Balance -525 / -525
Data Reviewed
-
Total Time Spent with Patient (in minutes): 55
[2024-08-08 11:15] VITALS: BP 109/66
[2024-08-08] MEDS: SODIUM PHOSPHATE 255 MEQ IV (12:00)
--- NOTE | 2024-08-08 13:52 | CM ---
Patient chart reviewed
hypokalemia
PLAN: Home, no needs anticipated when medically stable
--- NOTE | 2024-08-08 14:26 | W.PN.NEPH.PH ---
Today's Communication / Plan
-
cotn lasix and follow labs
Assessment/Plan
-
IMP:
Bilateral Lower Extremity Edema, suspect related to Hypoalbuminemia
Acute on Chronic Anemia
B12 def
Crohn's Disease- prednisone and Rinvoq
Hx Multiple Electrolyte Abnormalities-follow Dr Clemente
Hypocalcemia
hypokalemia
hypomagnesemia
Hypophosphatemia
VIt D def
SHPTH
Narcotic Abuse
Depression
plan:
A/w worsening LE edema despite lasix [employer]
reports symp worse after Injectafer for anemia last week
cont lasix for edema , seem to respond well
echo noted mild to mod MR, normal EF
replace phos, cont neutra phos
rachel is ok,cont po calcium and vit D
note she is on Calcitonin nasal spray this can also contribute low calcium too
bp stable
monitor h/h, replace b12 , follows heme out pt
d/w pt in detail
-
-
Date of Service: August 08, 2024
CC / HPI / ROS
-
Chief Complaint:
Electrolyte abnormalities
History of Present Illness:
k normal, phos low 2.1.
rachel 7.4, I rachel 1.10
Bp stable
hb better at 9.1
Review of Systems:
no sob or cp
edema slow to improve
Labs
-
Labs:
WBC 3.6 10^3/uL (4.8-10.8) L 08/08/24 06:07
RBC 3.21 10^6/uL (4.20-5.40) L 08/08/24 06:07
Hgb 9.1 g/dL (12.0-16.0) L 08/08/24 06:07
Hct 29.0 % (37.0-47.0) L 08/08/24 06:07
Plt Count 242 10^3/uL (130-400) 08/08/24 06:07
Sodium 138 mmol/L (135-145) 08/08/24 06:07
Potassium 4.1 mmol/L (3.5-5.1) 08/08/24 06:07
Chloride 113 mmol/L (98-107) H 08/08/24 06:07
Carbon Dioxide 27 mmol/L (22-30) 08/08/24 06:07
BUN 12 mg/dl (7-17) 08/08/24 06:07
Creatinine 0.6 mg/dL (0.6-1.0) 08/08/24 06:07
eGFR > 60.00 08/08/24 06:07
Glucose 110 mg/dl (70-99) H 08/08/24 06:07
Calcium 7.4 mg/dl (8.4-10.2) L 08/08/24 06:07
Phosphorus 2.1 mg/dl (2.5-4.5) L 08/08/24 06:07
Llo-Y-Audpdahrows Pept 772 pg/ml 08/06/24 14:07
Albumin 2.1 g/dl (3.5-5.0) L 08/08/24 06:07
Physical Exam
-
Vital Signs:
Vital Signs
Temp Pulse Resp BP Pulse Ox
98 F 76 14 109/66 98
08/08/24 11:15 08/08/24 11:15 08/08/24 11:15 08/08/24 11:15 08/08/24 11:15
Respiratory:: Bilateral: CTA
Lung Excursion:: Normal
Abdomen:: Nontender and Soft
Bowel Sounds:: Normal
Extremity Edema:: +1: Bilateral:
Mireles Catheter: No
[2024-08-08 15:23] VITALS: BP 117/77
[2024-08-08] MEDS: LEXAPRO 10 MG PO (17:11)
[2024-08-08 19:25] VITALS: BP 113/64
[2024-08-08] MEDS: MIACALCIN/FORTICAL NASAL SPRAY 1 SPRAY NASAL (21:22)
[2024-08-08] MEDS: MAGNESIUM OXIDE 500 MG PO (21:22)
[2024-08-08 23:10] VITALS: BP 106/66
[2024-08-09 03:20] VITALS: BP 103/59
[2024-08-09 06:00] VITALS: BMI 23.3
[2024-08-09] MEDS: NICODERM TRANSDERMAL 7 MG TRANSDERM (07:30)
[2024-08-09] MEDS: PEPCID 20 MG PO (07:30)
[2024-08-09] MEDS: NEUTRA-PHOS POWDER PACKET 250 MG PO ×2 (07:30→21:02)
[2024-08-09] MEDS: SUBUTEX 4 MG SL ×3 (07:30→17:07)
[2024-08-09] MEDS: OSCAL CAL 500 1000 MG PO ×2 (07:31→21:03)
[2024-08-09] MEDS: THERAGRAN 1 TABLET PO (07:31)
[2024-08-09] MEDS: DELTASONE 5 MG PO ×2 (07:31→21:10)
[2024-08-09] MEDS: CYANOCOBALAMIN 1000 MCG IM (07:31)
[2024-08-09] MEDS: VITAMIN D3 (cholecalciferol) 125 MCG PO ×2 (07:31→21:09)
[2024-08-09 07:32] LABS: % Basophils 0.5 % (0-2); % Eosinophils 1.2 % (0-6); % Immature Granulocytes 1.8 % (0-0.5); % Lymphocytes 6.2 % (20.5-51.1); % Monocytes 8.3 % (1.7-9.3); Absolute Eosinophils 0.1 10^3/uL (0-0.7); Absolute Immature Granulocytes 0.1 10^3/uL (0-0.05); Absolute Lymphocytes 0.4 10^3/uL (1.2-3.4); Absolute Monocytes 0.6 10^3/uL (0.1-0.6); Absolute Neutrophils 5.4 10^3/uL (1.4-6.5); Hemoglobin 10.1 g/dL (12.0-16.0); Mean Corp Hgb Conc. 30.6 g/dL (33.0-37.0); Mean Corpuscular Hgb 28.3 pg (27.0-31.0); Mean Corpuscular Volume 92.4 fL (81.0-99.0); Mean Platelet Volume 8.7 fL (7.4-10.4); Nucleated Red Blood Cells % 0 %; Platelet Count 278 10^3/uL (130-400); Red Blood Cell Count 3.57 10^6/uL (4.20-5.40); Red Cell Dist. Width 24.1 % (11.5-14.5); White Blood Cell Count 6.6 10^3/uL (4.8-10.8)
[2024-08-09] MEDS: LASIX 20 MG IV (07:44)
[2024-08-09 07:51] LABS: ALT (SGPT) 15 U/L (0-35); AST (SGOT) 14 U/L (14-36); Albumin 2.3 g/dl (3.5-5.0); Alkaline Phosphatase 56 U/L (38-126); Blood Urea Nitrogen 17 mg/dl (7-17); Calcium 7.2 mg/dl (8.4-10.2); Carbon Dioxide 29 mmol/L (22-30); Chloride 111 mmol/L (98-107); Estimated Creatinine Clearance 104 ml/min; Glucose 76 mg/dl (70-99); Magnesium 2.3 mg/dl (1.6-2.3); Phosphorus 1.7 mg/dl (2.5-4.5); Potassium 4.3 mmol/L (3.5-5.1); Sodium 138 mmol/L (135-145); Total Bilirubin 0.3 mg/dl (0.2-1.3); Total Protein 4.4 g/dl (6.3-8.2); eGFR > 60.00
[2024-08-09 08:14] VITALS: BP 99/62
[2024-08-09] MEDS: SODIUM PHOSPHATE 255 MEQ IV (09:03)
--- NOTE | 2024-08-09 11:40 | W.PN.HOSP.TC ---
Today's Communication/Plan
-
Cont w/IV lasix
replete IV phos
nephro recs
Assessment / Plan
Assessment / Plan
General: Comfortable, Conversant
HEENT: Anicteric and Moist mucous membranes
Respiratory: Clear and Non Labored Respirations
Cardiac: S1/S2 and Regular Rhythm; No Murmur
GI: Soft and Non Tender
Rectal: Deferred by Provider
Musculoskeletal: No Clubbing, No Cyanosis and Other (+1 pitting edema bilateral lower extremities), compression stocking noted
Skin: Warm and Dry
Neuro: Awake, Alert, Oriented and Nonfocal/grossly intact
Psych: Calm
Anasarca with worsening of lower extremity edema suspect related to Hypoalbuminemia
-Encourage high protein diet
-Refusing low-sodium diet
-Give Lasix 20mg IV with blood transfusion, and continue Lasix 20mg IV Daily
-Echo with EF of 60 to 65%. No regional wall motion abnormality. Normal right ventricular size and function. Mild to moderate mitral regurgitation.
-OP cardiology f/u for Mild to moderate mitral regurgitation.
-nephro following
Acute on Chronic Anemia
B12 def
-Patient denies black or bloody stools
-no luminal bleeding noted
-start b12
-Transfused 2 units PRBCs
-Hgb 10.1. Due for [facility] f/u for EGD/Colon next month.
Crohn's Disease
-Continue prednisone and Rinvoq as prior to admission
-Due for [facility] f/u for EGD/Colon next month.
Hx Multiple Electrolyte Abnormalities-Hypokalemia, hypomagnesemia, hypophosphatemia, hypocalcemia
-Continue supplements as prior to admission
-replete prn. Cont neutra-phos, calcium supplements,
-corrected calcium normal. Phos low additional IV ordered
-changed PPI to H2 betty with hypomag/b12 def.
Narcotic Abuse
-Continue Suboxone
Depression
-Continue Lexapro
DVT proph: SCDs in setting of anemia. oob/ambulate
Code Status: Full Code
Anticipated Discharge: Within 24 hours
Subjective/Interval History
-
Date of Service: August 09, 2024
states of mild improvement in edema
Objective Data
-
Labs:
Laboratory Results
08/09/24
06:40
WBC 6.6
Hgb 10.1 L
Hct 33.0 L
Plt Count 278
Sodium 138
Potassium 4.3
Chloride 111 H
Carbon Dioxide 29
BUN 17
Creatinine 0.6
Glucose 76
Calcium 7.2 L
Total Bilirubin 0.3
AST 14
ALT 15
Alkaline Phosphatase 56
Vital Signs:
Vital Signs
Temp Pulse Resp BP Pulse Ox
98.3 F 85 14 99/62 97
08/09/24 08:14 08/09/24 08:14 08/09/24 08:14 08/09/24 08:14 08/09/24 08:14
I&O
08/08/24 08/09/24 08/10/24
06:59 06:59 06:59
Intake Total 1680 / 1680
Balance 1680 / 1680
Data Reviewed
-
Total Time Spent with Patient (in minutes): 55
--- NOTE | 2024-08-09 12:03 | W.PN.NEPH.PH ---
Today's Communication / Plan
-
Continue diuretics
Assessment/Plan
-
IMP:
Bilateral Lower Extremity Edema, suspect related to Hypoalbuminemia
Acute on Chronic Anemia
B12 def
Crohn's Disease- prednisone and Rinvoq
Hx Multiple Electrolyte Abnormalities-follow Dr Clemente
Hypocalcemia
hypokalemia
hypomagnesemia
Hypophosphatemia
VIt D def
SHPTH
Narcotic Abuse
Depression
plan:
A/w worsening LE edema despite lasix [employer]
reports symp worse after Injectafer for anemia last week
cont lasix for edema
echo noted mild to mod MR, normal EF
replace phos, cont neutra phos
rachel is ok,cont po calcium and vit D
note she is on Calcitonin nasal spray this can also contribute low calcium too= consider endocrinology outpatient as discussed with the patient
Patient feels like she needs another day of diuresis.
-
-
Date of Service: August 09, 2024
CC / HPI / ROS
-
Chief Complaint:
Electrolyte abnormalities
History of Present Illness:
k normal, phos low 2.1.
Bp stable
hb better status posttransfusion
Review of Systems:
no sob or cp
edema slow to improve
Labs
-
Labs:
WBC 6.6 10^3/uL (4.8-10.8) 08/09/24 06:40
RBC 3.57 10^6/uL (4.20-5.40) L 08/09/24 06:40
Hgb 10.1 g/dL (12.0-16.0) L 08/09/24 06:40
Hct 33.0 % (37.0-47.0) L 08/09/24 06:40
Plt Count 278 10^3/uL (130-400) 08/09/24 06:40
Sodium 138 mmol/L (135-145) 08/09/24 06:40
Potassium 4.3 mmol/L (3.5-5.1) 08/09/24 06:40
Chloride 111 mmol/L (98-107) H 08/09/24 06:40
Carbon Dioxide 29 mmol/L (22-30) 08/09/24 06:40
BUN 17 mg/dl (7-17) 08/09/24 06:40
Creatinine 0.6 mg/dL (0.6-1.0) 08/09/24 06:40
eGFR > 60.00 08/09/24 06:40
Glucose 76 mg/dl (70-99) 08/09/24 06:40
Calcium 7.2 mg/dl (8.4-10.2) L 08/09/24 06:40
Phosphorus 1.7 mg/dl (2.5-4.5) L 08/09/24 06:40
Ouz-S-Wfbjghfnbwc Pept 772 pg/ml 08/06/24 14:07
Albumin 2.3 g/dl (3.5-5.0) L 08/09/24 06:40
Physical Exam
-
Vital Signs:
Vital Signs
Temp Pulse Resp BP Pulse Ox
98.3 F 85 14 99/62 97
08/09/24 08:14 08/09/24 08:14 08/09/24 08:14 08/09/24 08:14 08/09/24 08:14
Respiratory:: Bilateral: CTA
Lung Excursion:: Normal
Abdomen:: Soft
Bowel Sounds:: Normal
Extremity Edema:: +2: Bilateral:
[2024-08-09 12:27] VITALS: BP 104/63
[2024-08-09 15:41] VITALS: BP 99/57
[2024-08-09] MEDS: LEXAPRO 10 MG PO (17:08)
[2024-08-09 19:00] VITALS: BP 102/58
[2024-08-09] MEDS: MAGNESIUM OXIDE 500 MG PO (21:02)
[2024-08-09] MEDS: MIACALCIN/FORTICAL NASAL SPRAY NASAL (22:15)
[2024-08-09 23:00] VITALS: BP 94/60
[2024-08-10 06:00] VITALS: BMI 23.3
[2024-08-10 07:34] VITALS: BP 97/59
[2024-08-10 08:18] LABS: % Basophils 0.6 % (0-2); % Eosinophils 1.4 % (0-6); % Immature Granulocytes 1.4 % (0-0.5); % Lymphocytes 5.8 % (20.5-51.1); % Neutrophils 79.8 % (42.2-75.2); Absolute Eosinophils 0.1 10^3/uL (0-0.7); Absolute Immature Granulocytes 0.1 10^3/uL (0-0.05); Absolute Lymphocytes 0.3 10^3/uL (1.2-3.4); Absolute Monocytes 0.6 10^3/uL (0.1-0.6); Hematocrit 32.6 % (37.0-47.0); Hemoglobin 9.8 g/dL (12.0-16.0); Mean Corp Hgb Conc. 30.1 g/dL (33.0-37.0); Mean Corpuscular Hgb 28.3 pg (27.0-31.0); Mean Corpuscular Volume 94.2 fL (81.0-99.0); Mean Platelet Volume 8.9 fL (7.4-10.4); Nucleated Red Blood Cells % 0.4 %; Platelet Count 258 10^3/uL (130-400); Red Blood Cell Count 3.46 10^6/uL (4.20-5.40); Red Cell Dist. Width 24.1 % (11.5-14.5)
[2024-08-10 08:36] LABS: ALT (SGPT) 13 U/L (0-35); AST (SGOT) 13 U/L (14-36); Albumin 2.1 g/dl (3.5-5.0); Alkaline Phosphatase 53 U/L (38-126); Blood Urea Nitrogen 19 mg/dl (7-17); Calcium 7.1 mg/dl (8.4-10.2); Carbon Dioxide 27 mmol/L (22-30); Chloride 110 mmol/L (98-107); Estimated Creatinine Clearance 104 ml/min; Glucose 81 mg/dl (70-99); Magnesium 2.1 mg/dl (1.6-2.3); Phosphorus 2.1 mg/dl (2.5-4.5); Potassium 4.4 mmol/L (3.5-5.1); Sodium 138 mmol/L (135-145); Total Bilirubin 0.3 mg/dl (0.2-1.3); Total Protein 4.2 g/dl (6.3-8.2); eGFR > 60.00
[2024-08-10] MEDS: SUBUTEX 4 MG SL ×2 (09:52→12:23)
[2024-08-10] MEDS: NICODERM TRANSDERMAL 7 MG TRANSDERM (09:52)
[2024-08-10] MEDS: PEPCID 20 MG PO (09:52)
[2024-08-10] MEDS: NEUTRA-PHOS POWDER PACKET 250 MG PO (09:53)
[2024-08-10] MEDS: THERAGRAN 1 TABLET PO (09:53)
[2024-08-10] MEDS: OSCAL CAL 500 1000 MG PO (09:54)
[2024-08-10] MEDS: CYANOCOBALAMIN 1000 MCG IM (09:57)
[2024-08-10] MEDS: VITAMIN D3 (cholecalciferol) 125 MCG PO (09:57)
[2024-08-10] MEDS: DELTASONE 5 MG PO (09:57)
[2024-08-10] MEDS: LASIX 20 MG IV (09:57)
[2024-08-10 11:15] VITALS: BP 105/70
--- NOTE | 2024-08-10 11:31 | W.PN.HOSP.TC ---
Today's Communication/Plan
-
Nephrology reeval. Discharge planning
Assessment / Plan
Assessment / Plan
General: Comfortable, Conversant
HEENT: Anicteric and Moist mucous membranes
Respiratory: Clear and Non Labored Respirations
Cardiac: S1/S2 and Regular Rhythm; No Murmur
GI: Soft and Non Tender
Rectal: Deferred by Provider
Musculoskeletal: No Clubbing, No Cyanosis and Other (+1 pitting edema bilateral lower extremities), compression stocking noted
Skin: Warm and Dry
Neuro: Awake, Alert, Oriented and Nonfocal/grossly intact
Psych: Calm
Anasarca with worsening of lower extremity edema suspect related to Hypoalbuminemia
-Encourage high protein diet
-Refusing low-sodium diet
-Give Lasix 20mg IV with blood transfusion, and continue Lasix 20mg IV Daily
-Echo with EF of 60 to 65%. No regional wall motion abnormality. Normal right ventricular size and function. Mild to moderate mitral regurgitation.
-OP cardiology f/u for Mild to moderate mitral regurgitation.
-nephro following
- Discharge planning once cleared by nephrology-possible later today or tomorrow
Acute on Chronic Anemia
B12 def
-Patient denies black or bloody stools
-no luminal bleeding noted
-start b12
-Transfused 2 units PRBCs
-Hgb 9.8 today. Due for [facility] f/u for EGD/Colon next month.
Crohn's Disease
-Continue prednisone and Rinvoq as prior to admission
-Due for [facility] f/u for EGD/Colon next month.
Hx Multiple Electrolyte Abnormalities-Hypokalemia, hypomagnesemia, hypophosphatemia, hypocalcemia
-Continue supplements as prior to admission
-replete prn. Cont neutra-phos, calcium supplements,
-corrected calcium normal. Phos low additional IV ordered
-changed PPI to H2 betty with hypomag/b12 def.
Narcotic Abuse
-Continue Suboxone
Depression
-Continue Lexapro
DVT proph: SCDs in setting of anemia. oob/ambulate
Code Status: Full Code
Anticipated Discharge: Today
Subjective/Interval History
-
Date of Service: August 10, 2024
Patient feels better overall. Less peripheral edema. No shortness of breath. Blood pressure on the low side but asymptomatic and somewhat chronic
Objective Data
-
Labs:
Laboratory Results
08/10/24
07:11
WBC 5.0
Hgb 9.8 L
Hct 32.6 L
Plt Count 258
Sodium 138
Potassium 4.4
Chloride 110 H
Carbon Dioxide 27
BUN 19 H
Creatinine 0.6
Glucose 81
Calcium 7.1 L
Total Bilirubin 0.3
AST 13 L
ALT 13
Alkaline Phosphatase 53
Vital Signs:
Vital Signs
Temp Pulse Resp BP Pulse Ox
98.2 F 98 14 105/70 98
08/10/24 11:15 08/10/24 11:15 08/10/24 11:15 08/10/24 11:15 08/10/24 11:15
I&O
08/09/24 08/10/24 08/11/24
06:59 06:59 06:59
Intake Total 1680 / 1680 1020 / 1020
Balance 1680 / 1680 1020 / 1020
--- NOTE | 2024-08-10 12:48 | W.PN.NEPH.PH ---
Today's Communication / Plan
-
Lasix 20 mg p.o. daily on discharge
Okay for discharge from renal standpoint
Assessment/Plan
-
IMP:
Bilateral Lower Extremity Edema, suspect related to Hypoalbuminemia
Acute on Chronic Anemia
B12 def
Crohn's Disease- prednisone and Rinvoq
Hx Multiple Electrolyte Abnormalities-follow Dr Clemente
Hypocalcemia
hypokalemia
hypomagnesemia
Hypophosphatemia
VIt D def
SHPTH
Narcotic Abuse
Depression
plan:
A/w worsening LE edema despite lasix [employer]
reports symp worse after Injectafer for anemia last week
cont lasix for edema
echo noted mild to mod MR, normal EF
replace phos, cont neutra phos
rachel is ok,cont po calcium and vit D
note she is on Calcitonin nasal spray this can also contribute low calcium too= consider endocrinology outpatient as discussed with the patient
Continue Lasix 20 mg p.o. outpatient
Follow-up in the office in about 2 weeks
From a renal standpoint okay for discharge
-
-
Date of Service: August 10, 2024
CC / HPI / ROS
-
Chief Complaint:
Electrolyte abnormalities
History of Present Illness:
k normal, phos low 2.1.
Bp stable
hb better status posttransfusion
Review of Systems:
no sob or cp
edema slow to improve
Labs
-
Labs:
WBC 5.0 10^3/uL (4.8-10.8) 08/10/24 07:11
RBC 3.46 10^6/uL (4.20-5.40) L 08/10/24 07:11
Hgb 9.8 g/dL (12.0-16.0) L 08/10/24 07:11
Hct 32.6 % (37.0-47.0) L 08/10/24 07:11
Plt Count 258 10^3/uL (130-400) 08/10/24 07:11
Sodium 138 mmol/L (135-145) 08/10/24 07:11
Potassium 4.4 mmol/L (3.5-5.1) 08/10/24 07:11
Chloride 110 mmol/L (98-107) H 08/10/24 07:11
Carbon Dioxide 27 mmol/L (22-30) 08/10/24 07:11
BUN 19 mg/dl (7-17) H 08/10/24 07:11
Creatinine 0.6 mg/dL (0.6-1.0) 08/10/24 07:11
eGFR > 60.00 08/10/24 07:11
Glucose 81 mg/dl (70-99) 08/10/24 07:11
Calcium 7.1 mg/dl (8.4-10.2) L 08/10/24 07:11
Phosphorus 2.1 mg/dl (2.5-4.5) L 08/10/24 07:11
Wod-P-Ibjebcdieei Pept 772 pg/ml 08/06/24 14:07
Albumin 2.1 g/dl (3.5-5.0) L 08/10/24 07:11
Physical Exam
-
Vital Signs:
Vital Signs
Temp Pulse Resp BP Pulse Ox
98.2 F 98 14 105/70 98
08/10/24 11:15 08/10/24 11:15 08/10/24 11:15 08/10/24 11:15 08/10/24 11:15
Respiratory:: Bilateral: CTA
Lung Excursion:: Normal
Abdomen:: Soft
Bowel Sounds:: Normal
Extremity Edema:: +2: Bilateral:
--- NOTE | 2024-08-10 13:40 | W.DCSUMMARY ---
Discharge Summary
Discharge Data
Date of Admission: 08/06/24
Date of Discharge: 08/10/24
Total time spent discharging patient (in min): 35
-
Pending Results: No
Hospital Course
Patient 38 years old female with history of chronic disease, anemia, narcotic use disorder, depression, hyperlipidemia, hypocalcemia, hypophosphatemia, hypomagnesemia, presented to the hospital with worsening peripheral edema/anasarca felt to be
related to worsening hypoalbuminemia. Nephrology consulted. Patient received blood transfusions and hemoglobin remained stable afterwards. She did not have any signs of active bleeding but she does have a follow-up appointment for which she is
going to have endoscopy and colonoscopy as outpatient to rule out occult bleed at [place]. She was also found to have B12 deficiency and she was started on B12 supplementation and will continue upon discharge. She was also treated with IV Lasix
and also her electrolytes were replaced accordingly. Patient echocardiogram unremarkable except for mild to moderate mitral regurgitation and she will follow-up with cardiology as outpatient. Patient renal function remained stable. Patient had
negative balance and her peripheral edema improved. We were able to switch her diuretics to oral. Nephrology cleared her for discharge today. She will be discharged in stable condition today.
Discharge duration: 35 minutes
Discharge Plan
-
Patient Disposition: Home (Routine Discharge)
Discharge Diagnosis/Procedures: Anasarca due to hypoalbuminemia. Acute on chronic anemia. Vitamin B12 deficiency. History of chron's disease.
Diet: 2 Gram Sodium and Restrict fluids to 64 oz
Activity: As tolerated
Blood Work: Please PCP to order CBC, BMP, magnesium, phosphorus within 1 week
Specialty Instructions: Weigh Daily- Call MD for wt gain/loss 3 lbs overnight/5 lbs in 1 week
Activity Restrictions/Additional Instructions:
-OP cardiology f/u for Mild to moderate mitral regurgitation.
Referrals:
Petrona Chavarria MD [Family Provider, Family Practice] - in less than 1 week
Maria Antonia Williamson MD [Active, Nephrology] - in one to two weeks
Prescriptions:
New
cyanocobalamin (vitamin B-12) 1,000 mcg capsule
1,000 mcg PO DAILY Qty: 30 0RF
Continued
pantoprazole 40 MG tablet,delayed release (DR/EC)
40 mg PO DAILY
escitalopram oxalate 10 MG tablet
10 mg PO QPM
multivitamin with folic acid [Tab-A-Anna] 1 TABLET tablet
1 tab PO DAILY
norgestimate-ethinyl estradiol 0.25-35 mg-mcg tablet
1 tab PO HS
cyanocobalamin (vitamin B-12) 1,000 mcg/mL Solution
1,000 mcg IM QMONTH
buprenorphine-naloxone 8-2 mg Tablet, Sublingual
0.5 tab SUBLINGUAL TID@0800,1200,1600
Rinvoq 30 mg Tablet Extended Release 24 Hr
30 mg PO HS
prednisone 5 mg tablet
5 mg PO BID
calcium carbonate 600 mg calcium (1,500 mg) Tablet
1,200 mg PO BID
potassium 99 mg Tablet
99 mg PO DAILY
calcitonin (salmon) 200 unit/actuation spray,non-aerosol
1 spray intranasal HS
Phospha 250 Neutral 250 mg tablet
1 tab PO BID
nicotine 7 mg/24 hr Patch 24 Hour
1 patch TRANSDERMAL Q24H
magnesium oxide 500 mg Capsule
500 mg PO HS
cholecalciferol (vitamin D3) [Vitamin D3] 125 mcg (5,000 unit) Tablet
125 mcg PO BID
furosemide 20 mg tablet
20 mg PO DAILY
Discharge Orders:
Discharge Patient (As Directed); Ordered 08/10/24
Ordered By: Daquan Richter
Discharge Date and Time
Discharge Date/Time: 08/10/24 14:09
Print Language: LIBERIAN
--- NOTE | 2024-08-10 13:45 | CM ---
Patient seen at bedside
discharge today
PLAN: Home, no needs
will drive self
== END 2024-08-10 14:09 | disposition home or self-care (01) | DRG 844 ==
LOC: 3 WEST ACU 22:07
PROVIDERS: Emergency Medicine; Hospitalist; Physician Assistant Medical; ADMITTING PHYSICIAN Internal Medicine; ATTENDING PHYSICIAN Hospitalist; CONSULT PHYSICIAN Internal Medicine; EMERGENCY PHYSICIAN Emergency Medicine; FAMILY PHYSICIAN Family Medicine
PROC: 30233N1 Transfusion of Nonautologous Red Blood Cells into Peripheral Vein, Percutaneous Approach (ICD-10-PCS; 2024-08-06)
DX: E88.09 Other disorders of plasma-protein metabolism, not elsewhere classified (principal); K50.90 Crohn's disease, unspecified, without complications; D63.8 Anemia in other chronic diseases classified elsewhere; E83.51 Hypocalcemia; F32.A Depression, unspecified; E78.5 Hyperlipidemia, unspecified; E83.42 Hypomagnesemia; E83.39 Other disorders of phosphorus metabolism; F11.10 Opioid abuse, uncomplicated; K21.9 Gastro-esophageal reflux disease without esophagitis; M81.0 Age-related osteoporosis without current pathological fracture; I95.9 Hypotension, unspecified; E87.6 Hypokalemia; E53.8 Deficiency of other specified B group vitamins; I34.0 Nonrheumatic mitral (valve) insufficiency; Z87.891 Personal history of nicotine dependence; Z79.52 Long term (current) use of systemic steroids
CPT/HCPCS: 36430; 73140; 80048; 80053; 80076; 81003; 82330; 82607; 82728; 82746; 83540; 83550; 83735; 83880; 84100; 85025; 85027; 86850; 86900; 86901; 86920; 86922; 87070; 93306; 99285; P9016

== ENCOUNTER 2024-10-16 14:32 | Inpatient (IN) | payer MEDICARE, OTHER, SELFPAY ==
[2024-10-16] VITALS (20 sets, daily range): BP systolic 96–146; BP diastolic 60–89; BMI 25.8; BMI 25.0
--- NOTE | 2024-10-16 11:00 | ED.GENMED ---
History of Present Illness
General
Chief Complaint: Abnormal Lab Value
Source: patient
Exam Limitations: none
Time Seen by Provider: 10/16/24 10:41
Nursing documentation reviewed up to this point in time: agreed with
History of Present Illness
History of Present Illness:
Patient with history of chronic anemia secondary to Crohn's disease, presents to ED secondary to worsening generalized weakness, fatigue, dizziness with exertion over the past 2 weeks. Patient's last blood work 2 weeks ago had revealed hemoglobin
of 7.5. Denies bleeding. Patient has tried outpatient medications, i.e. supplements, with side effects. Patient's primary GI physician at [facility] is currently arranging for patient to receive outpatient iron infusion. Denies fever or
chills. Denies vomiting or diarrhea. In addition, patient has noticed increased leg swelling, despite taking Lasix 40 mg daily. However, patient states that her has been steady. Denies change in diet. Patient has required blood transfusion in
the past. Patient is currently taking prednisone for Crohn's disease.
Past History
Past History
ED Past Medical History: Other (crohns, chronic anemia, narcotic abuse) and Other (Previous seizure from narcotic as well as from Wellbutrin withdrawal, Crohn's disease, anemia, previous small bowel obstruction,)
ED Past Surgical History: Appendectomy, Bowel resection ( X5 due to Crohn's), Gynecological and Other (Hernia repair X2)
Social History
Tobacco: Former smoker
Alcohol: None
Drug: Former user (on suboxone)
Personal: Single
Living: with family
Employment: Not employed
Family History
Family History: Other (Crohn's disease)
Review of Systems
Review of Systems
Allergies reviewed?: Yes
All Other Systems: ROS reviewed and negative except as documented in HPI and ROS
Constitutional: Reports no symptoms; Denies fever
Respiratory: Reports trouble breathing; Denies cough
Cardiac: Reports no symptoms
ABD/GI: Reports no symptoms; Denies abdominal pain
: Reports no symptoms
Musculoskeletal: Reports edema
Skin: Reports no symptoms
Neurological: Reports dizzy and weakness
Phy Exam
Physical Exam
Physical Exam:
Physical Exam
General: no apparent distress, not acutely ill. afebrile
Head: nc/at. eomi
Neck: supple. normal range of motion.
Heart: s1/s2 regular rate and rhythm
Lungs: no acute respiratory distress. clear bilaterally
Abdomen: normal bowel sounds. not tender. Rectal exam ([place] principal technologist, at bedside) : brown stool, heme negative
Neuro: alert and oriented x 3. no focal neurological deficits
Skin: no rash. pale appearing
Psychiatric: well kept. interactive and cooperative
Extremities: LE b/l pitting edema. no calf tenderness.
Course
Orders/Labs/Results
Orders:
Orders
10/16/24 10:01
EKG [Electrocardiogram (*1)] Urgent
Reason for Study: Shortness of Breath
EKG- Treatment ONCE
Test Result ONCE
10/16/24 10:57
US Arms, Left [US Periph Venous UPPER Ext LT] Urgent
Comment:
Reason For Exam: swelling w pain
10/16/24 10:58
Ketorolac [Toradol] 15 mg IV NOW STA
10/16/24 11:14
Type+Screen Urgent
Complete Blood Count/With Diff Urgent
Comprehensive Metabolic Panel Urgent
Ferritin Urgent
HCG, Serum Qualitative Screen Urgent
Comment: Notify provider if positive test present
Iron Urgent
PTT Urgent
Prothrombin Time Urgent
TSH Urgent
Comment: ADD ON
Total Iron Binding Urgent
Comment: IRON,FERRITIN,TIBC ADDED ON BY FLOOR 12:48PM 10-16-24
10/16/24 12:26
* Blood Bank Products Urgent
Blood Bank Products: *Packed RBC Leuko(PRBC's)
Quantity: 2
Transfuse Today: Yes
Reason: Anemia
IV Insert/Care/Rem.- Treatment PRN
10/16/24 12:48
Add On- LAB Urgent
Tests Added?: iron, ferritin, TIBC. B12 level
10/16/24 13:[address] Non Medication Order As Directed
Physician Order: PTT 6 hours after initial start of Heparin infusion
Above order entered?: Yes
10/16/24 13:15
Heparin 78702 Units/250 ml 25,000 units in 250 ml IV PER PROTOCOL
Weight to be used for heparin protocol in kilograms (kg):: 66.1
Protocol:: DVT/PE
PTT Goal Range to be used:: PTT 73 to 111 seconds
Order type:: Initial
INITIAL Infusion Dose (UNITS/KG/hr) & then follow protocol:: 18 units/kg/hr
Infusion Dose in UNITS/hr & then follow protocol (UNITS/hr):: 1,200
INFUSION RATE in mL/hr & then follow protocol (mL/hr):: 12
For DVT/PE algorithm, re-bolus for low PTT?: Yes
PTT less than or equal to 64 seconds:: Re-bolus 80 units/kg (max 10,000units). Increase by 300 units/hr
(+ 3mL/hr)
PTT 64.1 to 72.9 seconds:: Re-bolus 40 units/kg (max 5,000 units). Increase by 100 units/hr
(+ 1mL/hr)
PTT 73 to 111 seconds:: Target Range. No change in rate.
PTT 111.1 to 130.9 seconds:: Decrease rate by 100 units/hr (- 1 mL/hr)
PTT 131 to 199.9 seconds:: HOLD for 1 hr. Then decrease by 200 units/hr (- 2mL/hr)
PTT greater than or equal to 200 seconds:: HOLD for 2 hrs & Notify Provider. Then decrease by 300 units/hr
(- 3mL/hr)
Lab follow-up:: Each change, PTT q6h until 2 consecutive are therapeutic. Then
PTT daily.
10/16/24 13:47
Admit/Transfer Patient As Directed
Co-Sign Provider:
Level of Care: Inpatient admission
Assign to:: Medical/Surgical
Physician / Group: Lizandro
Diagnosis: Acute on chronic anemia, LUE DVT
Reason for Hospitalization: Blood tx, Anticoagulation
Expected length of stay greater than two midnights?: Yes
ELOS- Estimated Length of Stay in days: 3
I certify the patient meets the requirements for IP care: Yes
PRN Pain Medication Management As Directed
May give lesser potent ordered pain med per pt: Yes
preference::
Protocol:: Medication orders for pain may be administered in a
manner that supports deferring to patient preference
when the pt is:
- Requesting an ordered lesser potent pain medication.
Least to most potent pain medications are defined
as: acetaminophen < NSAID < tramadol < opioids
(morphine, oxycodone, hydromorphone).
- Requesting a lesser dose of the same medication IF
ORDERED.
- Requesting a less intrusive route of administration
if both routes are prescribed by the provider (PO <
IV).
10/16/24 13:56
Code Status As Directed
Resuscitation Status: Full Code
10/16/24 14:14
Add On- LAB Routine
Tests Added?: TSH
10/16/24 Dinner
Regular
At Your Request: Full Participation
Fluid Restriction: 1440 mL/day (48 oz)
10/16/24 15:20
Urine Osmolality Random [Osmolality, Random Urine] Routine
Date Specimen was Collected: 10/16/24
Time Specimen was Collected: 15:09
Urine Sodium Routine
Date Specimen was Collected: 10/16/24
Time Specimen was Collected: 15:09
10/16/24 19:57
Acetaminophen [Tylenol] 650 mg PO Q6HPRN PRN
Calcitriol [Rocaltrol] 0.25 mcg PO QPM
Escitalopram Oxalate [Lexapro] 10 mg PO QPM
Ferric Gluconate [Ferrlecit] 125 mg 0.9% Sodium Chloride 100 ml [Nss] 100 ml IV DAILY@1400
Ondansetron Orally Disint [Zofran Odt (Orally Disintegrating)] 4 mg PO QIDPRN PRN nausea
10/16/24 19:57
HEMATOLOGY CONSULT Routine
Consulting Provider: Mika Massey
Was physician already notified: Yes
SURGICAL CONSULT Routine
Consulting Provider: Ky Herron
Was physician already notified: Yes
Activity As Directed
Activity Level: Ambulate
10/16/24 20:00
Cholecalciferol (Vitamin D3) [VITAMIN D3 (cholecalciferol)] 125 mcg PO BID
Nicotine [Nicoderm Transdermal] 7 mg TRANSDERM Q24H
Sodium/Potassium Phosphate Mix [Neutra-Phos Powder Packet] 250 mg PO BID
10/16/24 20:30
Buprenorphine [Subutex] 4 mg SL TID@0800,1200,1600
10/16/24 21:00
Calcium Carbonate/Vitamin D3 [Oscal 500 + D] 1,000 mg PO BID
10/16/24 22:00
Magnesium Oxide 400 mg PO HS
Multivitamin [Theragran] 1 tablet PO HS
Prednisone [Deltasone] 5 mg PO HS
10/17/24 08:00
Cyanocobalamin [Vitamin B-12] 1,000 mcg PO DAILY
Pantoprazole [Protonix] 40 mg PO DAILY
Prednisone [Deltasone] 10 mg PO DAILY
10/17/24 09:30
BMP [Basic Metabolic Panel] IN AM
Complete Blood Count/With Diff IN AM
Magnesium IN AM
Phos [Phosphorus] IN AM
10/18/24 06:00
Complete Blood Count/With Diff IN AM
10/19/24 06:00
Complete Blood Count/With Diff IN AM
Abnormal Lab Results
10/16/24
11:14
RBC 1.97 L 10^6/uL
(4.20-5.40)
Hgb 4.7 L* g/dL
(12.0-16.0)
Hct 16.5 L* %
(37.0-47.0)
MCH 23.9 L pg
(27.0-31.0)
MCHC 28.5 L g/dL
(33.0-37.0)
RDW 18.1 H %
(11.5-14.5)
Abs Immat Gran (auto) 0.2 H 10^3/uL
(0-0.05)
Absolute Neuts (auto) 9.8 H 10^3/uL
(1.4-6.5)
Absolute Lymphs (auto) 0.2 L 10^3/uL
(1.2-3.4)
Immature Gran % 1.5 H %
(0-0.5)
Neutrophils % 91.8 H %
(42.2-75.2)
Lymphocytes % 1.9 L %
(20.5-51.1)
APTT 20.4 L Sec
(23.4-35.0)
Sodium 134 L mmol/L
(135-145)
Chloride 110 H mmol/L
(98-107)
Carbon Dioxide 19 L mmol/L
(22-30)
BUN 28 H mg/dl
(7-17)
Glucose 122 H mg/dl
(70-99)
Calcium 8.2 L mg/dl
(8.4-10.2)
Iron 22 L ug/dl
(37-170)
% Saturation 5 L %
(20-50)
Ferritin 4.5 L ng/ml
(6.24-137)
Total Protein 4.6 L g/dl
(6.3-8.2)
Albumin 2.6 L g/dl
(3.5-5.0)
Crossmatch IS Only See Detail
MTS Gel Crossmatch See Detail
10/16/24 11:14
10/16/24 11:14
Vital Signs
Initial and Last Documented VS:
Initial Vital Signs
Temp Pulse Resp BP Pulse Ox
99.1 F 114 16 134/74 98
10/16/24 10:06 10/16/24 10:06 10/16/24 10:06 10/16/24 10:06 10/16/24 10:06
Last Documented Vital Signs
Temp Pulse Resp BP Pulse Ox
98.4 F 81 16 93/56 98
10/17/24 07:00 10/17/24 07:00 10/17/24 07:00 10/17/24 07:00 10/17/24 08:05
MDM/Problems Addressed
MDM/Problems Addressed:
H/H noted. Rectal exam: heme negative. Iron studies ordered.
US report reviewed and discussed with the patient.
Discussed with hematology () - as long as patient is heme negative, recommends starting patient on heparin tx without initial bolus, along with vascular surgery consultation for possible thoracic outlet syndrome for etiology behind UE DVT.
*Pulse Oximetry
SaO2: 96
Oxygen Mode of Delivery: Room air
Patient hypoxic: no
*Critical Care Note
Total Time (30-74mins, 75-104mins- exclusive of procedures): Not Applicable
ED Attending Note
-
Portions of this chart may have been created with voice recognition software.� Occasional wrong word or��sound alike� substitutions may have occurred due to the inherent limitations of voice recognition software.
Discharge Plan
Departure
Patient Disposition: Admit
Date of Disposition: 10/16/24
Time of Disposition: 13:14
Admit to: Telemetry
Presentation/result/management discussed w/ accepting MD/DO: Hospitalist
Discharge Problem:
Symptomatic anemia, DVT of axillary vein, acute
Interventions
Interventions:
*Risk Screen - Suicide Last Done: 10/16/24 10:10
*General Assessment Last Done: 10/16/24 10:10
*Neglect/Abuse Screening Last Done: 10/16/24 10:10
*ED- Fall Risk Assessment Last Done: 10/16/24 10:10
*ED COVID-19 Vaccine History Last Done: 10/16/24 16:18
*Nursing Disposition Last Done: 10/16/24 19:50
Discharge Date and Time
Discharge Date/Time: 10/16/24 19:50
[2024-10-16] MEDS: TORADOL 15 MG IV (11:26)
[2024-10-16 11:55] LABS: HCG, Serum Qualitative Screen Negative
[2024-10-16 11:59] LABS: ALT (SGPT) 17 U/L (0-35); AST (SGOT) 18 U/L (14-36); Albumin 2.6 g/dl (3.5-5.0); Alkaline Phosphatase 42 U/L (38-126); Blood Urea Nitrogen 28 mg/dl (7-17); Calcium 8.2 mg/dl (8.4-10.2); Carbon Dioxide 19 mmol/L (22-30); Chloride 110 mmol/L (98-107); Estimated Creatinine Clearance 103 ml/min; Glucose 122 mg/dl (70-99); Potassium 3.8 mmol/L (3.5-5.1); Sodium 134 mmol/L (135-145); Total Protein 4.6 g/dl (6.3-8.2); eGFR > 60.00
[2024-10-16 12:00] LABS: INR 0.92; PT 12.8 Sec (11.4-14.6)
[2024-10-16 12:01] LABS: APTT 20.4 Sec (23.4-35.0)
[2024-10-16 12:03] LABS: Hematocrit 16.5 % (37.0-47.0); Hemoglobin 4.7 g/dL (12.0-16.0); Mean Corp Hgb Conc. 28.5 g/dL (33.0-37.0); Mean Corpuscular Volume 83.8 fL (81.0-99.0); Nucleated Red Blood Cells % 0.7 %; Platelet Count 347 10^3/uL (130-400); Red Cell Dist. Width 18.1 % (11.5-14.5)
[2024-10-16 13:31] LABS: Iron 22 ug/dl (37-170)
[2024-10-16 13:40] LABS: Total Iron Binding Capacity 377 ug/dl (265-497)
[2024-10-16] MEDS: HEPARIN 25000 UNITS/250 ML IV (14:00)
--- NOTE | 2024-10-16 14:00 | HPS.HSE ---
Family Physician
-
Family Physician: Petrona Chavarria
Chief Complaint
-
Left arm pain and swelling, weakness
History of Present Illness
39-year-old female with history of Crohn's disease here with complaints of left arm pain and swelling for the past few days.
Also with progressive fatigue and weakness for 2 weeks.
Previous hemoglobin noted to be 7.5 two weeks ago. Suffers from chronic anemia related to Crohn's disease. Has required prior blood transfusions.
Denies any obvious bleeding, melena or hematochezia.
Medical History
Past Medical History
Past Medical History: Reports Other
Additional Past Medical History:
Crohn's disease
Chronic anemia
History of opioid dependence
Vitamin B12 deficiency
Depression
Chronic hypoalbuminemia
Vitamin D deficiency
GERD
Osteoporosis
Past Surgical History: Reports Appendectomy and Other
Additional Past Surgical History:
5 bowel resections for Crohn's
Hernia repair x 2
Social History
Tobacco: Non-smoker
Alcohol: None
Drug: None
Employment: Employed
Family History
Family History: Not pertinent
Allergies / Home Medications
Allergies reflects when Allergies were last updated in [employer].
Home Medications with original date entered in [employer]
Allergy/Medication List:
Allergies
Allergy/AdvReac Type Severity Reaction Status Date / Time
iron (From Venofer) Allergy Shortness Verified 10/16/24 10:10
of Breath
kiwi Allergy Anaphylaxis Verified 10/16/24 10:10
Home Medications
escitalopram oxalate 10 mg tablet 10 mg PO QPM Mental Health/Anxiety 04/18/20
pantoprazole 40 mg tablet,delayed release 40 mg PO DAILY Gastrointestinal issue 04/18/20
multivitamin with folic acid 400 mcg tablet (Tab-A-Anna) 1 tab PO HS Supplement 03/31/21
buprenorphine 8 mg-naloxone 2 mg sublingual tablet 0.5 tab sublingual TID@0800,1200,1600 Opioid use disorder 02/02/24
cyanocobalamin (vitamin B-12) 1,000 mcg/mL injection solution 1,000 mcg IM QMONTH Supplement 02/02/24
upadacitinib 30 mg tablet,extended release 24 hr (Rinvoq) 30 mg PO HS CROHN'S 02/02/24
calcium carbonate 1,200 mg PO BID Supplement 08/06/24
cholecalciferol (vitamin D3) 125 mcg (5,000 unit) tablet (Vitamin D3) 125 mcg PO BID Supplement 08/06/24
furosemide 20 mg tablet 20 mg PO DAILYPRN PRN swelling from excess fluid 08/06/24
magnesium oxide 500 mg capsule 500 mg PO HS Supplement 08/06/24
nicotine 7 mg/24 hr daily transdermal patch 1 patch transdermal Q24H cigarette withdraw 08/06/24
potassium 99 mg tablet 99 mg PO BID Supplement 08/06/24
prednisone 5 mg tablet 5 mg PO HS crohn's disease 08/06/24
cyanocobalamin (vitamin B-12) 1,000 mcg capsule 1,000 mcg PO DAILY #30 caps 08/10/24
calcitriol 0.25 mcg capsule 0.25 mcg PO QPM Kidney Disease 10/16/24
ibuprofen 200 mg tablet 400 mg PO BIDPRN PRN mild pain 10/16/24
levonorgestrel 0.15 mg-ethinyl estradiol 30 mcg tablets,3 mos pack(91) 1 tab PO DAILY 10/16/24
ondansetron 4 mg disintegrating tablet 4 mg translingual QIDPRN PRN nausea 10/16/24
potassium, sodium phosphates 280 mg-160 mg-250 mg oral powder packet 1 packet PO BID 10/16/24
prednisone 10 mg tablet 10 mg PO DAILY Crohn's disease 10/16/24
Review of Systems
-
History Source: Patient
A 12 point ROS was completed and negative except as noted: Yes
Physical Exam
Vital Signs
Vital Signs
Temp Pulse Resp BP Pulse Ox
99.1 F 95 14 96/64 97
10/16/24 10:06 10/16/24 13:30 10/16/24 13:30 10/16/24 12:27 10/16/24 13:30
Physical Exam
General: Well Developed, Well Nourished, No Apparent Distress and Comfortable
HEENT: NormoCephalic, Anicteric and Moist mucous membranes
Respiratory: Clear
Cardiac: S1/S2 and Regular Rhythm
Breast: Deferred by me
GI: Soft, Non Tender and Non Distended
Musculoskeletal: No Clubbing, No Cyanosis and Edema, Left Upper Extremity
Skin: Warm, Dry and Other (Mild erythema and warmth surrounding left elbow, normal range of motion)
Neuro: AO x 3
Hematologic/Lymphatic: No Lymphadenopathy
Psych: Calm
Laboratory Results
-
10/16/24 11:14
10/16/24 11:14
Laboratory Results
PT 12.8 Sec (11.4-14.6) 10/16/24 11:14
INR 0.92 10/16/24 11:14
APTT 20.4 Sec (23.4-35.0) L 10/16/24 11:14
Total Bilirubin 0.2 mg/dl (0.2-1.3) 10/16/24 11:14
AST 18 U/L (14-36) 10/16/24 11:14
ALT 17 U/L (0-35) 10/16/24 11:14
Alkaline Phosphatase 42 U/L (38-126) 10/16/24 11:14
Impression/Plan
-
Acute occlusive LUE DVT -extensive occlusive thrombus involving the left axillary vein, small volume thrombus in the proximal left brachial vein. Occlusive thrombus in the proximal left basilic vein and nonocclusive thrombus in the mid to distal
left basilic vein.
Suspect trigger is underlying Crohn's disease as well as oral contraceptives.
Rule out anatomic etiology such as venous thoracic outlet syndrome. Vascular surgery consulted.
She denies previous history of DVT.
Clinical trial data does not confirm risk of VTE from Rinvoq.
Acute on chronic anemia -hemoglobin down to 4.7. It was 9.8 in July, patient states it was 7.5 two weeks ago. Getting 2 units transfused today.
Does have iron deficiency on blood work from today, ferritin pending. Previous blood work confirmed B12 deficiency.
Continue B12 repletion. IV iron ordered.
Hematology consulted.
Hyponatremia -134. Monitor for now. Check labs.
Crohn's disease -on Rinvoq and prednisone chronically.
Baseline prednisone dose is 5 mg twice daily but she increased it to 10 mg in the morning and 5 mg in the evening about a month ago due to recurrence of abdominal pain. This managed to control her pain.
Chronic hypoalbuminemia -due to underlying Crohn's disease. Chronic bilateral lower extremity edema. She takes furosemide as needed, last dose 2 days ago.
History of opiate dependence/abuse -on chronic Suboxone.
Full code
--- NOTE | 2024-10-16 14:15 | CON.VAS ---
Consultation
Consultation Request
Date/Time Consultation Performed: 10/16/2024 1515
Requesting Provider: Hospitalist
Performing Provider: Denise Olivera, HARRIET-C for Ky Herron M.D.
Reason for Consultation: Left upper extremity DVT
Medical History
-
Chief Complaint: Left upper extremity DVT and anemia
History of Present Illness:
This is a 39-year-old female with significant past medical history for chron's disease, chronic anemia, opioid dependence, vitamin B12 deficiency, depression, chronic hypoalbuminemia, vitamin D deficiency, GERD, and osteoporosis presented [place]
ED with reports of lightheadedness, visual disturbances, and generalized fatigue. ED evaluation significant for hemoglobin at 4.7 prompting admission. She also noted 2 weeks of left upper extremity elbow pain/redness and mild swelling prompting
ultrasound which led to diagnosis of left upper extremity DVT. She notes pain, arrhythmia, and swelling is focally located at her left elbow and is sensitive to palpation. There is no swelling in the remainder of the arm. She denies overuse
activity. Denies any venipunctures except for a transfusion of blood that she received in the hospital roughly few weeks ago. Denies any illicit injections. Denies any bug bites that she is aware of. Regarding PICC line placement she notes that
she had a PICC line in the past but is not sure which arm and was roughly 8 years ago. Currently she is resting comfortably in stretcher. She does note chronic bilateral lower extremity swelling that she was told is due to her hypoalbuminemia, she
takes daily Lasix for management.
Past Medical History
Past Medical History: Other (chron's disease, chronic anemia, opioid dependence, vitamin B12 deficiency, depression, chronic hypoalbuminemia, vitamin D deficiency, GERD, and osteoporosis)
Past Surgical History: Other (Reports 5 bowel resections for Crohn's disease management and hernia repair x 2)
Social History
Tobacco: Non-Smoker
Alcohol: None
Drug: None
Allergies / Home Medications
Allergy/AdvReac Type Severity Reaction Status Date / Time
iron (From Venofer) Allergy Shortness Verified 10/16/24 10:10
of Breath
kiwi Allergy Anaphylaxis Verified 10/16/24 10:10
�Medication �Instructions �Recorded �Confirmed �Type
escitalopram oxalate 10 mg tablet 10 mg PO QPM Mental Health/Anxiety 04/18/20 10/16/24 History
pantoprazole 40 mg tablet,delayed 40 mg PO DAILY Gastrointestinal 04/18/20 10/16/24 History
release issue
multivitamin with folic acid 400 1 tab PO HS Supplement 03/31/21 10/16/24 History
mcg tablet (Tab-A-Anna)
buprenorphine 8 mg-naloxone 2 mg 0.5 tab sublingual 02/02/24 10/16/24 History
sublingual tablet TID@0800,1200,1600 Opioid use
disorder
cyanocobalamin (vitamin B-12) 1,000 mcg IM QMONTH Supplement 02/02/24 10/16/24 History
1,000 mcg/mL injection solution
upadacitinib 30 mg tablet,extended 30 mg PO HS CROHN'S 02/02/24 10/16/24 History
release 24 hr (Rinvoq)
calcium carbonate 1,200 mg PO BID Supplement 08/06/24 10/16/24 History
cholecalciferol (vitamin D3) 125 125 mcg PO BID Supplement 08/06/24 10/16/24 History
mcg (5,000 unit) tablet (Vitamin
D3)
furosemide 20 mg tablet 20 mg PO DAILYPRN PRN swelling 08/06/24 10/16/24 History
from excess fluid
magnesium oxide 500 mg capsule 500 mg PO HS Supplement 08/06/24 10/16/24 History
nicotine 7 mg/24 hr daily 1 patch transdermal Q24H cigarette 08/06/24 10/16/24 History
transdermal patch withdraw
potassium 99 mg tablet 99 mg PO BID Supplement 08/06/24 10/16/24 History
prednisone 5 mg tablet 5 mg PO HS crohn's disease 08/06/24 10/16/24 History
cyanocobalamin (vitamin B-12) 1,000 mcg PO DAILY #30 caps 08/10/24 10/16/24 Rx
1,000 mcg capsule
calcitriol 0.25 mcg capsule 0.25 mcg PO QPM Kidney Disease 10/16/24 10/16/24 History
ibuprofen 200 mg tablet 400 mg PO BIDPRN PRN mild pain 10/16/24 10/16/24 History
levonorgestrel 0.15 mg-ethinyl 1 tab PO DAILY 10/16/24 10/16/24 History
estradiol 30 mcg tablets,3 mos
pack(91)
ondansetron 4 mg disintegrating 4 mg translingual QIDPRN PRN nausea 10/16/24 10/16/24 History
tablet
potassium, sodium phosphates 280 1 packet PO BID 10/16/24 10/16/24 History
mg-160 mg-250 mg oral powder packet
prednisone 10 mg tablet 10 mg PO DAILY Crohn's disease 10/16/24 10/16/24 History
Review of Systems
-
History Source: Patient
Constitutional: Reports Fatigue
EENT: Reports No Symptoms
Respiratory: Reports No Symptoms
Cardiac: Reports No Symptoms
Abdomen/GI: Reports No Symptoms
: Reports No Symptoms
Musculoskeletal: Reports Edema (Bilateral lower extremity edema chronic)
Skin: Reports Other (Left elbow redness, swelling, and pain)
Neurological: Reports Dizzy and Weakness
Endocrine: Reports No Symptoms
Physical Exam
Vital Signs
Temp Pulse Resp BP Pulse Ox
99.1 F 95 14 96/64 97
10/16/24 10:06 10/16/24 13:30 10/16/24 13:30 10/16/24 12:27 10/16/24 13:30
Lab Results
10/16/24 11:14
10/16/24 11:14
Physical Exam
General: No Apparent Distress
HEENT: Normocephalic, Anicteric and Atraumatic
Respiratory: Non Labored Respirations
Cardiac: Negative JVD
GI: Soft, Non Tender and Non Distended
Musculoskeletal: Edema (Bilateral lower extremity +1 edema, left upper extremity edema focally located around elbow)
Skin: Warm
Assessment / Plan
-
Assessment: 39-year-old female with left upper extremity DVT in the axillary and brachial veins. Apparent sparing of the subclavian vein based on ultrasound. Does not clearly represent venous TOS. Minimal symptoms. Possibly chronic thrombus?
Plan:
Would obtain CT venogram to assess for any subclavian vein thrombus and/or thoracic outlet compression. If this is TOS would likely not offer invasive procedure with hemoglobin 4.7, severely anemic not a candidate for thrombolysis and without
successful thrombolysis, first rib resection is not really warranted.
Given minimal symptoms and contraindications would likely favor just treatment with anticoagulation
Data Reviewed
-
Ultrasound: Discussed with Patient
Labs: Labs Reviewed by me
[2024-10-16 14:29] LABS: Ferritin 4.5 ng/ml (6.24-137)
--- NOTE | 2024-10-16 15:37 | W.PN.UPDATE ---
Addendum entered and electronically signed by Ky Herron MD 10/16/24 17:43:
There is no evidence of thoracic outlet compression (venous TOS). See pictures below. First picture depicts widely patent costoclavicular space with no evidence of stenosis of the subclavian/axillary vein. Second picture depicts the clot, that
actually is in the brachial vein remote to the axillary/subclavian veins. Therefore there is nothing for me to offer surgically here. Recommend anticoagulation, defer to hematology for further workup. We will sign off. Please call us with
questions.
Addendum entered and electronically signed by Ky Herron MD 10/16/24 16:39:
Note - i asked for LE DVT u/s to be completed as well due to some (chronic) b/l LE swelling and some concern for hypercoaguability.
Original Note:
Update Note
Progress Note Update
39-year-old female with chronic anemia on and off. History of Crohn's disease. Last bowel surgery was 8 years ago. She presented due to symptoms of lightheadedness and visual disturbances. Found to be severely anemic. Of note while here she
noted some redness on her left elbow with mild swelling focally in that vicinity and sensitivity to touch. That has been present for a couple weeks. No swelling in the remainder of the arm. No overuse activity that she describes recently. Denies
any venipunctures except for a transfusion of blood that she received in the hospital a few weeks ago. Denies any illicit injections. Denies any bug bites that she is aware of. When asked about PICC line placement, she notes she had a PICC line
in the past. She is not sure which arm. Likely last had a PICC line 8 years ago or so.
On exam/she is awake and alert. In no acute distress. Breathing is unlabored. Bilateral upper extremities are soft. Left upper arm and forearm are soft and not edematous. Left elbow is reddened with mild focal swelling. Centrally there is a
small apple, but patient notes this is chronic.
Duplex reviewed. Axillary vein thrombus. In addition she has brachial vein occlusive thrombus. No thrombus noted in the subclavian vein.
Plan/ Left upper extremity DVT in the axillary and brachial veins. Apparent sparing of the subclavian vein based on ultrasound. Mechanistically this does not clearly represent venous thoracic outlet syndrome. In addition she does not have
significant symptoms. This was an incidental remark noted by her after she came to the hospital for other reasons. In addition her swelling is only mild and in an area of redness at the elbow. I am not sure if this is a chronic thrombus, or if
this is an acute thrombus. Certainly it is possible she has had chronic thrombus and just happened to have a reddened area or cellulitis or bug bite at the elbow region currently. Regardless, if this is a thoracic outlet problem, not sure that I
would offer her anything invasively with a hemoglobin of 4.7. She is severely anemic and not really a candidate for thrombolysis therefore. And without successful thrombolysis, first rib resection is not really warranted. Would obtain CT venogram
to assess for any subclavian vein thrombus and/or thoracic outlet compression. However, again is noted with minimal symptoms, uncertain chronicity, and her contraindications as I note, likely would favor just treatment with anticoagulation alone.
[2024-10-16 16:04] LABS: TSH 1.48 uIU/ml (0.47-4.68)
[2024-10-16] MEDS: ULTRAM 50 MG PO (17:48)
--- NOTE | 2024-10-16 18:11 | EDRN ---
Patient receiving 1st unit of PRBC. Explained to patient signs and symptoms of a transfusion reaction. Verbalized understanding. Blood being infused via blood warmer per blood bank.
--- NOTE | 2024-10-16 18:31 | EDRN ---
Patient tolerating 1st unit PRBC well. Asymptomatic of a transfusion reaction.
[2024-10-16 21:05] LABS: APTT 63.9 Sec (23.4-35.0)
[2024-10-16] MEDS: DELTASONE 5 MG PO (21:30)
[2024-10-16] MEDS: LEXAPRO 10 MG PO (21:30)
[2024-10-16] MEDS: THERAGRAN 1 TABLET PO (21:30)
[2024-10-16] MEDS: OSCAL 500 + D 1000 MG PO (21:30)
[2024-10-16] MEDS: MAGNESIUM OXIDE 400 MG PO (21:31)
[2024-10-16] MEDS: ROCALTROL 0.25 MCG PO (21:32)
[2024-10-16] MEDS: VITAMIN D3 (cholecalciferol) 125 MCG PO (21:33)
[2024-10-16] MEDS: NICODERM TRANSDERMAL 7 MG TRANSDERM (21:33)
[2024-10-16] MEDS: NEUTRA-PHOS POWDER PACKET 250 MG PO (21:34)
[2024-10-16] MEDS: HEPARIN 5300 UNITS IV (21:44)
[2024-10-16] MEDS: SUBUTEX 4 MG SL (22:13)
[2024-10-16] MEDS: FERRLECIT 110 MG IV (22:33)
--- NOTE | 2024-10-16 23:28 | PTCARENOTE ---
second unit prbc's infused with blood warmer. no s/s of transfusion reaction
[2024-10-17 04:08] LABS: APTT 125.9 Sec (23.4-35.0)
[2024-10-17 07:00] VITALS: BP 93/56
[2024-10-17] MEDS: DELTASONE 10 MG PO (08:05)
[2024-10-17] MEDS: PROTONIX 40 MG PO (08:05)
[2024-10-17] MEDS: OSCAL 500 + D 1000 MG PO ×2 (08:05→20:12)
[2024-10-17] MEDS: VITAMIN B-12 1000 MCG PO (08:05)
[2024-10-17] MEDS: VITAMIN D3 (cholecalciferol) 125 MCG PO ×2 (08:05→20:12)
[2024-10-17] MEDS: NEUTRA-PHOS POWDER PACKET 250 MG PO ×2 (08:05→20:12)
[2024-10-17] MEDS: SUBUTEX 4 MG SL ×3 (08:08→15:24)
--- NOTE | 2024-10-17 08:57 | CON.ONC ---
Documented by User: Laure Bill DO, Resident 10/17/24 10:49
Consultation
-
Date Consultation Requested: 10/16/24
Date Consultation Performed: 10/17/24
Requesting Provider: Yariel Bone DO
Performing Provider: Dr. Zaldivar
Reason for Consultation: Aute on Chronic Anemia and LUE DVTs
Impression
Impression
Acute Occlusive Left Upper Extremity DVT
Acute on Chronic Symptomatic Anemia
Hyponatremia
Crohn�s Disease
Chronic Hypoalbuminemia
Plan
Plan
Acute Occlusive Left Upper Extremity DVT
-US of the left upper extremity on 10/16/2024: Extensive occlusive thrombus involving the left axillary vein, small volume thrombus in the proximal left brachial vein, occlusive thrombus in the proximal left basilica vein and nonexclusive thrombus in
the mid to distal left basilic vein.
-Continue Heparin
-Ordered Cardiolipin, [id number], Lupus anticoagulant
-Will monitor
Acute on Chronic Symptomatic Anemia
-Hemoglobin of 4.7 on admission
-Iron 22 (L), TIBC 377 (N), % Saturation 5 (L), Ferritin 4.5 (L) - Iron deficiency Anemia
-Repeat labs following administration of 2 units of pRBCs showed hemoglobin of 6.3
-Ordered additional unit of pRBCs
-Continue Ferrelictin as patient tolerated this well in the ED with no side effects despite listed iron allergy
-Follow H&H closely
-Will monitor
Patient History
History of Present Illness
This is a 39 y/o female with pmhx of Crohn�s Disease on Rinvoq and Prednisone and chronic iron deficiency anemia requiring prior blood transfusions who presented to the ED on 10/16/2024 with left arm pain and swelling for the past few days. This was
also in the setting of progressive fatigue and weakness for 2 weeks. She was treated with Injectafer 750mg on 07/29/2024, and there was a plan to complete endoscopy and colonoscopy at [place] to monitor her Crohn's Disease.
In the ED, her hemoglobin was 4.7, decreased from 9.8 in 07/2024. An US of the left upper extremity revealed extensive occlusive thrombus involving the left axillary vein, small volume thrombus in the proximal left brachial vein, occlusive thrombus
in the proximal left basilica vein and nonexclusive thrombus in the mid to distal left basilic vein. She was transfused with 2 units of pRBCs. Vascular surgery reported no evidence of thoracic outlet compression. Ultrasound of the lower extremities
showed nonexclusive thrombus in the left popliteal, peroneal and posterior tibial veins. She was started on a Heparin drip and admitted to the hospital for further evaluation.
Patient was resting when I arrived. She states that she mostly just feels tired, which has not improved since yesterday when she came to the ED. She does not have any shortness of breath or chest pain. She continues to have pain in her left arm. She
does not have any personal history of blood clots in the past, and is unaware of any family history of blood clots. She has not had any recent extended plane travel. She has no history of miscarriages. She does take control at home. While she
has had episodes of anemia requiring transfusion before, she does not recall any times her hemoglobin was less than 5.0.
Past-Medical/Surgical History
Chronic Iron Deficiency Anemia
Vitamin B12 deficiency
Vitamin D deficiency
Hypocalcemia
Hyponatremia
Crohn�s Disease
Chronic Hypoalbuminemia
Patient Medication
�Medication �Instructions �Recorded �Confirmed �Last Taken �Type
escitalopram oxalate 10 mg tablet 10 mg PO QPM Mental Health/Anxiety 04/18/20 10/16/24 10/16/24 History
pantoprazole 40 mg tablet,delayed 40 mg PO DAILY Gastrointestinal 04/18/20 10/16/24 10/16/24 History
release issue
multivitamin with folic acid 400 1 tab PO HS Supplement 03/31/21 10/16/24 10/16/24 History
mcg tablet (Tab-A-Anna)
buprenorphine 8 mg-naloxone 2 mg 0.5 tab sublingual 02/02/24 10/16/24 10/16/24 History
sublingual tablet TID@0800,1200,1600 Opioid use
disorder
cyanocobalamin (vitamin B-12) 1,000 mcg IM QMONTH Supplement 02/02/24 10/16/24 10/16/24 History
1,000 mcg/mL injection solution
upadacitinib 30 mg tablet,extended 30 mg PO HS CROHN'S 02/02/24 10/16/24 10/16/24 History
release 24 hr (Rinvoq)
calcium carbonate 1,200 mg PO BID Supplement 08/06/24 10/16/24 10/16/24 History
cholecalciferol (vitamin D3) 125 125 mcg PO BID Supplement 08/06/24 10/16/24 10/16/24 History
mcg (5,000 unit) tablet (Vitamin
D3)
furosemide 20 mg tablet 20 mg PO DAILYPRN PRN swelling 08/06/24 10/16/24 10/16/24 History
from excess fluid
magnesium oxide 500 mg capsule 500 mg PO HS Supplement 08/06/24 10/16/24 10/16/24 History
nicotine 7 mg/24 hr daily 1 patch transdermal Q24H cigarette 08/06/24 10/16/24 10/16/24 History
transdermal patch withdraw
potassium 99 mg tablet 99 mg PO BID Supplement 08/06/24 10/16/24 10/16/24 History
prednisone 5 mg tablet 5 mg PO HS crohn's disease 08/06/24 10/16/24 10/16/24 History
cyanocobalamin (vitamin B-12) 1,000 mcg PO DAILY #30 caps 08/10/24 10/16/24 10/16/24 Rx
1,000 mcg capsule
calcitriol 0.25 mcg capsule 0.25 mcg PO QPM Kidney Disease 10/16/24 10/16/24 Unknown History
ibuprofen 200 mg tablet 400 mg PO BIDPRN PRN mild pain 10/16/24 10/16/24 10/16/24 History
levonorgestrel 0.15 mg-ethinyl 1 tab PO DAILY 10/16/24 10/16/24 10/16/24 History
estradiol 30 mcg tablets,3 mos
pack(91)
ondansetron 4 mg disintegrating 4 mg translingual QIDPRN PRN nausea 10/16/24 10/16/24 Unknown History
tablet
potassium, sodium phosphates 280 1 packet PO BID 10/16/24 10/16/24 10/16/24 History
mg-160 mg-250 mg oral powder packet
prednisone 10 mg tablet 10 mg PO DAILY Crohn's disease 10/16/24 10/16/24 10/16/24 History
Active Medications
Generic Name Dose Route Start Last Admin
Trade Name Freq PRN Reason Stop Dose Admin
Acetaminophen 650 mg 10/16/24 17:37
Acetaminophen 325 Mg Tablet PO 11/13/24 17:36
Q4HPRN PRN
mild/mod pain
Acetaminophen 650 mg 10/16/24 19:57
Acetaminophen 325 Mg Tablet PO 11/13/24 19:56
Q6HPRN PRN
mild pain/ fever>100.5F
Buprenorphine 4 mg 10/16/24 20:30 10/17/24 08:08
Buprenorphine 2 Mg Sl Tablet SL 10/30/24 20:29 4 mg
TID@0800,1200,1600 MARCO ANTONIO Administration
Calcitriol 0.25 mcg 10/16/24 19:57 10/16/24 21:32
Calcitriol 0.25 Microgram Capsule PO 11/13/24 19:56 0.25 mcg
QPM MARCO ANTONIO Administration
Calcium/Vitamin D 1,000 mg 10/16/24 21:00 10/17/24 08:05
Calcium Carbonate 500 Mg/Vitamin D 5 Mcg (200 Units) Tablet PO 11/13/24 20:59 1,000 mg
BID MARCO ANTONIO Administration
Cholecalciferol 125 mcg 10/16/24 20:00 10/17/24 08:05
Cholecalciferol (Vitamin D3) 125 Mcg Tablet (5,000 Units) PO 11/13/24 19:59 125 mcg
BID MARCO ANTONIO Administration
Cyanocobalamin 1,000 mcg 10/17/24 08:00 10/17/24 08:05
Cyanocobalamin (Vitamin B-12) 500 Mcg Tablet PO 11/14/24 07:59 1,000 mcg
DAILY MARCO ANTONIO Administration
Escitalopram Oxalate 10 mg 10/16/24 19:57 10/16/24 21:30
Escitalopram 10 Mg Tablet PO 11/13/24 19:56 10 mg
QPM MARCO ANTONIO Administration
Heparin Sodium 5,300 units 10/16/24 17:39 10/16/24 21:44
Heparin 80 Units/Kg Iv Rebolus IV 11/13/24 17:38 5,300 units
PRN PRN Administration
PTT < OR = 64 seconds
Heparin Sodium 2,600 units 10/16/24 17:40
Heparin 40 Units/Kg Iv Rebolus IV 11/13/24 17:39
PRN PRN
PTT = 64.1 to 72.9 seconds
Heparin Sodium 25,000 units in 250 mls @ 0 mls/hr 10/16/24 13:15 10/16/24 14:00
Heparin 26406 Units/250 Ml IV 250 mls
PER PROTOCOL MARCO ANTONIO Administration
Protocol
Per Protocol
Ferric Sodium Gluconate 110 mls @ 110 mls/hr 10/16/24 19:57 10/16/24 22:33
Complex 125 mg/ Sodium IV 10/20/24 14:59 110 mls
Chloride DAILY@1400 MARCO ANTONIO Administration
Magnesium Oxide 400 mg 10/16/24 22:00 10/16/24 21:31
Magnesium Oxide 400 Mg Tablet PO 11/13/24 21:59 400 mg
HS MARCO ANTONIO Administration
Multivitamins Therapeutic 1 tablet 10/16/24 22:00 10/16/24 21:30
Multivitamin Tablet PO 11/13/24 21:59 1 tablet
HS MARCO ANTONIO Administration
Nicotine 7 mg 10/16/24 20:00 10/16/24 21:33
Nicotine 7 Mg Patch TRANSDERM 11/13/24 19:59 7 mg
Q24H MARCO ANTONIO Administration
Ondansetron HCl 4 mg 10/16/24 19:57
Ondansetron 4 Mg (Orally-Disintegrating) Tablet PO 11/13/24 19:56
QIDPRN PRN
nausea
Pantoprazole Sodium 40 mg 10/17/24 08:00 10/17/24 08:05
Pantoprazole 40 Mg Delayed Release Tablet PO 11/14/24 07:59 40 mg
DAILY MARCO ANTONIO Administration
Potassium Phosphate 250 mg 10/16/24 20:00 10/17/24 08:05
Neutra-Phos Powder Concentrate (250 Mg) Packet PO 11/13/24 19:59 250 mg
BID MARCO ANTONIO Administration
Prednisone 10 mg 10/17/24 08:00 10/17/24 08:05
Prednisone 10 Mg Tablet PO 11/14/24 07:59 10 mg
DAILY MARCO ANTONIO Administration
Prednisone 5 mg 10/16/24 22:00 10/16/24 21:30
Prednisone 5 Mg Tablet PO 11/13/24 21:59 5 mg
HS MARCO ANTONIO Administration
Sodium Chloride 0 flush 10/16/24 18:00
Sodium Chloride 0.9% (Flush) Syringe IV 11/13/24 17:59
PER PROTOCOL MARCO ANTONIO
Tramadol HCl 50 mg 10/16/24 17:39 10/16/24 17:48
Tramadol Hcl 50 Mg Tablet PO 11/13/24 17:38 50 mg
Q6HPRN PRN Administration
severe pain
Review of Systems
-
History Source: Patient
Constitutional: Reports Fatigue and Weakness
Respiratory: Denies Cough or Trouble Breathing
Cardiac: Denies Chest Pain or Palpitations
GI: Denies Abdominal Pain, Nausea, Vomiting or Hemetemesis
Musculoskeletal: Reports Muscle Pain
Neuro: Reports Weakness
Physical Exam
-
General: Well Developed, Well Nourished, No Apparent Distress and Comfortable
Cardiology: Normal Sinus Rhythm, S1 and S2
Pulmonary: Clear
Skin: Warm and Dry
Psych: Calm and Intact Judgement/Insight
Labs
Lab Results
WBC 10.7 10^3/uL (4.8-10.8) 10/16/24 11:14
RBC 1.97 10^6/uL (4.20-5.40) L 10/16/24 11:14
Hgb 4.7 g/dL (12.0-16.0) L* 10/16/24 11:14
Hct 16.5 % (37.0-47.0) L* 10/16/24 11:14
MCV 83.8 fL (81.0-99.0) 10/16/24 11:14
MCH 23.9 pg (27.0-31.0) L 10/16/24 11:14
MCHC 28.5 g/dL (33.0-37.0) L 10/16/24 11:14
RDW 18.1 % (11.5-14.5) H 10/16/24 11:14
Plt Count 347 10^3/uL (130-400) 10/16/24 11:14
MPV 9.5 fL (7.4-10.4) 10/16/24 11:14
Abs Immat Gran (auto) 0.2 10^3/uL (0-0.05) H 10/16/24 11:14
Absolute Neuts (auto) 9.8 10^3/uL (1.4-6.5) H 10/16/24 11:14
Absolute Lymphs (auto) 0.2 10^3/uL (1.2-3.4) L 10/16/24 11:14
Absolute Monos (auto) 0.4 10^3/uL (0.1-0.6) 10/16/24 11:14
Absolute Eos (auto) 0.1 10^3/uL (0-0.7) 10/16/24 11:14
Absolute Basos (auto) 0.0 10^3/uL (0-0.2) 10/16/24 11:14
Immature Gran % 1.5 % (0-0.5) H 10/16/24 11:14
Neutrophils % 91.8 % (42.2-75.2) H 10/16/24 11:14
Lymphocytes % 1.9 % (20.5-51.1) L 10/16/24 11:14
Monocytes % 3.9 % (1.7-9.3) 10/16/24 11:14
Eosinophils % 0.7 % (0-6) 10/16/24 11:14
Basophils % 0.2 % (0-2) 10/16/24 11:14
Creatinine 0.6 mg/dL (0.6-1.0) 10/16/24 11:14
Vital Signs
Vital Signs
Temp Pulse Resp BP Pulse Ox
98.4 F 81 16 93/56 98
10/17/24 07:00 10/17/24 07:00 10/17/24 07:00 10/17/24 07:00 10/17/24 08:05

Documented by User: Rafael Zaldivar MD 10/17/24 12:08
Plan
Plan
Acute Occlusive Left Upper Extremity DVT
-US of the left upper extremity on 10/16/2024: Extensive occlusive thrombus involving the left axillary vein, small volume thrombus in the proximal left brachial vein, occlusive thrombus in the proximal left basilica vein and nonexclusive thrombus in
the mid to distal left basilic vein.
-Continue Heparin
-Ordered Cardiolipin, [id number], Lupus anticoagulant
-Will monitor
Acute on Chronic Symptomatic Anemia
-Hemoglobin of 4.7 on admission
-Iron 22 (L), TIBC 377 (N), % Saturation 5 (L), Ferritin 4.5 (L) - Iron deficiency Anemia
-Repeat labs following administration of 2 units of pRBCs showed hemoglobin of 6.3
-Ordered additional unit of pRBCs
-Continue Ferrelict as patient tolerated this well in the ED with no side effects despite listed iron allergy
-Follow H&H closely
-Will monitor
Hematology Addendum:
Patient seen and evaluated and agree w/ resident note and plan as outlined
-anemia - iron deficiency/ B12 deficiency - in setting of Crohns disease
-transfuse 1 unit PRBCs- cont IV iron
-recommend GI evaluation for possible GI blood loss - given need for outpt anticoagulation
-left UE thrombosis on heparin gtt
-follow CBC
--- NOTE | 2024-10-17 09:30 | PTCARENOTE ---
10/17- Patient still c/o 08/22 burning and sharp pain in her L-elbow. She states she may have rubbed it or bumped it within the past week and noticed a small scrape ~1 week ago. This has advanced to pain and redness across the elbow. L-elbow has
superficial abrasion, no drainage, +1 pitting edema with erythema and warm to touch. Warmer to touch than R-elbow. +Radials BL. Advised on warm compresses and questions for Physician. Notified Physician.
[2024-10-17 10:04] LABS: APTT 53.6 Sec (23.4-35.0)
[2024-10-17 10:05] LABS: Hematocrit 20.5 % (37.0-47.0); Hemoglobin 6.3 g/dL (12.0-16.0); Mean Corp Hgb Conc. 30.7 g/dL (33.0-37.0); Mean Corpuscular Volume 81.0 fL (81.0-99.0); Nucleated Red Blood Cells % 1.5 %; Platelet Count 264 10^3/uL (130-400); Red Cell Dist. Width 17.2 % (11.5-14.5)
[2024-10-17] MEDS: HEPARIN 25000 UNITS/250 ML IV (10:09)
[2024-10-17 10:13] LABS: Blood Urea Nitrogen 13 mg/dl (7-17); Calcium 7.4 mg/dl (8.4-10.2); Carbon Dioxide 24 mmol/L (22-30); Chloride 109 mmol/L (98-107); Estimated Creatinine Clearance 103 ml/min; Glucose 94 mg/dl (70-99); Magnesium 1.6 mg/dl (1.6-2.3); Potassium 3.7 mmol/L (3.5-5.1); Sodium 133 mmol/L (135-145); eGFR > 60.00
[2024-10-17] MEDS: HEPARIN 5300 UNITS IV (10:13)
--- NOTE | 2024-10-17 11:02 | W.PN.HOSP.TC ---
Addendum entered and electronically signed by Yariel Bone DO 10/17/24 13:09:
Called by nurse to evaluate patient for swelling of lips, throat, itching after IV cefazolin administration.
Intramuscular epinephrine administered with improvement in symptoms.
Patient denies drug allergies. Specifically she has tolerated Keflex, amoxicillin and penicillin in the past.
Cefazolin discontinued.
No evidence of angioedema on exam. No obvious rash.
Original Note:
Today's Communication/Plan
-
IV cefazolin
Continue anticoagulation
Transfuse
IV iron
Assessment / Plan
Assessment / Plan
Gen-AAOx3, NAD
HEENT-NC, AT, anicteric, clear oral mm
Neck-supple
CV-reg, no M, +S1/S2
Lungs-clear B/L
Abd-soft, NT, ND
Ext-no edema
Musculoskeletal-no cyanosis, clubbing, left elbow erythema and point tenderness over olecranon, normal range of motion
Skin-warm and dry
Neuro-grossly non-focal
Psych-calm, cooperative
Acute occlusive LUE DVT, acute nonocclusive left lower extremity DVT -extensive occlusive thrombus involving the left axillary vein, small volume thrombus in the proximal left brachial vein. Occlusive thrombus in the proximal left basilic vein and
nonocclusive thrombus in the mid to distal left basilic vein.
Suspect trigger is underlying Crohn's disease as well as oral contraceptives.
No evidence of venous thoracic outlet syndrome as per vascular surgery.
She denies previous history of DVT.
Clinical trial data does not confirm risk of VTE from Rinvoq. Nevertheless, I told patient to discontinue on discharge and speak with her GI physician.
Acute on chronic anemia -hemoglobin improved to 6.3 today, transfused 2 units of blood yesterday. Getting third unit of blood today.
Does have iron deficiency on blood work from today, ferritin pending. Previous blood work confirmed B12 deficiency.
Continue B12 repletion. IV iron ordered.
Hematology consulted.
She has menses about every 3 months, they are not heavy.
Recommend she speak with her GI physician about the iron deficiency anemia as the Crohn disease is likely the culprit.
Left elbow skin/soft tissue infection -possible olecranon bursitis. Start IV cefazolin. Toradol as needed. No evidence of septic arthritis.
Hyponatremia - labs consistent with SIADH, unclear etiology. Fluid restriction ordered.
Crohn's disease -on Rinvoq and prednisone chronically. Discontinue Rinvoq as above. Discussed with patient.
Baseline prednisone dose is 5 mg twice daily but she increased it to 10 mg in the morning and 5 mg in the evening about a month ago due to recurrence of abdominal pain. This managed to control her pain.
Chronic hypoalbuminemia -due to underlying Crohn's disease. Chronic bilateral lower extremity edema. She takes furosemide as needed, last dose 2 days ago.
History of opiate dependence/abuse -on chronic Suboxone.
Full code
Anticipated Discharge: 24 - 48 hours
Subjective/Interval History
-
Date of Service: October 17, 2024
Patient seen and examined. Complaining of left elbow pain.
Objective Data
-
Labs:
Laboratory Results
10/17/24 10/17/24 10/17/24
03:39 09:30 15:30
WBC 6.8
Hgb 6.3 L* D
Hct 20.5 L*
Plt Count 264 D
APTT 125.9 H 53.6 H Pending
Sodium 133 L
Potassium 3.7
Chloride 109 H
Carbon Dioxide 24
BUN 13
Creatinine 0.6
Glucose 94
Calcium 7.4 L
Vital Signs:
Vital Signs
Temp Pulse Resp BP Pulse Ox
98.4 F 81 16 93/56 98
10/17/24 07:00 10/17/24 07:00 10/17/24 07:00 10/17/24 07:00 10/17/24 08:05
I&O
10/16/24 10/17/24 10/18/24
06:59 06:59 06:59
Intake Total 500 / 500
Balance 500 / 500
Review of Systems
-
History Source: Patient
All other systems: Reviewed and negative
[2024-10-17] MEDS: TORADOL 15 MG IV ×2 (11:18→20:26)
[2024-10-17] MEDS: ANCEF 10 IV (12:03)
[2024-10-17 12:15] VITALS: BP 157/102
--- NOTE | 2024-10-17 12:15 | PTCARENOTE ---
10/17- Within 30minutes of administering Ancef as ordered, patient was crying, c/o sore throat, facial swelling and generalized pruritis. No rash currently observed. Mild angioedema currently observed. Tongue WNL; Throat clear/pink but mildly
swollen tonsils. TC=830/102, JU=094, T=99.2, RR=18. Notified Physician immediately. Patient denies PCN or Cephalosporins as previous allergies. No previous allergies on record for this patient. Sister Isabel was on the phone at this time and
advised this RN that while the patient has no history of PCN allergy, they do have a family history. See further orders. Added Penicillin and Cephalosporin to her allergy list.
[2024-10-17] MEDS: ADRENALIN 0.3 MG IM (12:24)
--- NOTE | 2024-10-17 12:30 | PTCARENOTE ---
/- Patient states pruritis and facial swelling have resolved. She still feels a bit of sore throat. Angioedema visibly decreased. Patient is jittery and mildly shakey at this time, anxious. HB=465, POX=98% on RA. Advised these S/S are effects
of the Epi, administered as ordered in response to the allergic reaction. Patient verbalized understanding. Will continue to monitor. See new set of VS.
[2024-10-17 12:47] VITALS: BP 123/56
--- NOTE | 2024-10-17 12:51 | PHA.VAN.IN ---
Assessment
- Assessment
Renal Function: Appears similar to baseline
AUC Dosing Plan
- Dosing Variables
Dosing Weight (kg): 64
Dosing CrCl (ml/min): 103
Vd coefficient (L/kg): 0.7
- Empiric Dosing
Initial / Loading Dose: 1500mg - administration pending
Maintenance Regimen: Vanc 1000mg Q12H starting 10/18 06
Estimated AUC (mcg*h/mL): 519
Estimated Peak (mcg*h/mL): 33.8
Estimated Trough (mcg/ml): 12.6
Estimated Half Life (H): 7.7
- Monitoring
No levels ordered at this time: consider levels in next few days
Pharmacokinetics Vancomycin I
- -
Patient Age: 39
Patient Sex: Female
Vancomycin Day #: 1
Indication: Skin And Soft Tissue
Requesting Provider: Dr. Bone
Pertinent Antimicrobial Allergies:
penicillins - itching, angioedema
Height / Weight:
Height 5 ft 3 in
Actual Weight 63.957 kg
- Vital Signs / Lab Results
Temp Pulse Resp BP Pulse Ox
97.7 F 126 22 157/102 97
10/17/24 12:15 10/17/24 12:15 10/17/24 12:15 10/17/24 12:15 10/17/24 12:15
Lab Results - Hematology
10/16/24 10/17/24
11:14 09:30
WBC 10.7 6.8
Lab Results - Chemistry
10/16/24 10/17/24
11:14 09:30
BUN 28 H 13
Creatinine 0.6 0.6
Estimated Creat Clear 103 103
Albumin 2.6 L
[2024-10-17 13:13] VITALS: BP 111/66
--- NOTE | 2024-10-17 14:00 | CM ---
Chart reviewed. Met with patient at bedside. IA completed. IMM completed in ED. Lives with her parents and 2 children in a multistory home. No issues navigating steps to second floor. BR on 1st floor. 1 step at entrance to the home. No Hx of DME, HC
or SNF/rehab. No insecurities identified. Confirmed PCP, RX, insurance and drug coverage.
PCP: Petrona Chavarria
RX: Anam Javier/ Anam
Plan: Home with no needs
--- NOTE | 2024-10-17 15:07 | W.PN.UPDATE ---
Update Note
Progress Note Update
I spoke with hospitalist Dr. Bone
Question if patient needs inpatient eval
I called and discussed with her outpatient GI doctor Dr. Luis
Pt with long standing anemia
Last egd/colo 2021
Hem negative stool
Plan for outpatient EGD/colo with Dr. Luis - recommend close outpatient GI follow up with Dr. Luis
Also on d/w Dr. Luis plan to stop Rinvoq for now given UE DVT
OK GI POV to start anticoagulation per hematology
If GI can be of further assistance please let us know
[2024-10-17 15:20] VITALS: BP 96/49
[2024-10-17] MEDS: FERRLECIT 110 MG IV (15:24)
[2024-10-17] MEDS: VANCOCIN 530 MG IV (15:25)
[2024-10-17 16:22] LABS: APTT 194.8 Sec (23.4-35.0)
[2024-10-17] MEDS: LEXAPRO 10 MG PO (17:04)
[2024-10-17] MEDS: ROCALTROL 0.25 MCG PO (17:04)
[2024-10-17] MEDS: NICODERM TRANSDERMAL 7 MG TRANSDERM (20:09)
--- NOTE | 2024-10-17 20:34 | PTCARENOTE ---
Per dayshift RN, attending physician okay with H and H being collected in AM with routine labs.
[2024-10-17 21:41] LABS: Hematocrit 23.7 % (37.0-47.0); Hemoglobin 7.4 g/dL (12.0-16.0)
--- NOTE | 2024-10-17 21:46 | PTCARENOTE ---
RN confirmed with nurse practitioner about getting an H and H after the patient received blood products during the dayshift. Hemoglobin during the morning was 6.3. Patient is not symptomatic. H and H ordered and collected at 2100. Hemoglobin
resulted at 7.4.
[2024-10-17] MEDS: MAGNESIUM OXIDE 400 MG PO (22:56)
[2024-10-17] MEDS: THERAGRAN 1 TABLET PO (22:56)
[2024-10-17] MEDS: DELTASONE 5 MG PO (22:57)
[2024-10-17 23:00] VITALS: BP 92/56
[2024-10-18] VITALS (7 sets, daily range): BP systolic 106–139; BP diastolic 60–77
[2024-10-18 01:25] LABS: APTT 94.2 Sec (23.4-35.0)
[2024-10-18] MEDS: VANCOCIN 200 IV ×2 (05:34→20:24)
[2024-10-18] MEDS: HEPARIN 25000 UNITS/250 ML IV ×2 (05:42→23:37)
[2024-10-18] MEDS: TORADOL 15 MG IV ×3 (06:00→21:09)
[2024-10-18 08:23] LABS: APTT 90.6 Sec (23.4-35.0)
[2024-10-18 08:31] LABS: Hematocrit 21.0 % (37.0-47.0); Hemoglobin 6.4 g/dL (12.0-16.0); Mean Corp Hgb Conc. 30.5 g/dL (33.0-37.0); Mean Corpuscular Volume 82.0 fL (81.0-99.0); Nucleated Red Blood Cells % 1.3 %; Platelet Count 235 10^3/uL (130-400); Red Cell Dist. Width 17.5 % (11.5-14.5)
[2024-10-18] MEDS: OSCAL 500 + D 1000 MG PO ×2 (08:40→20:26)
[2024-10-18] MEDS: VITAMIN B-12 1000 MCG PO (08:41)
[2024-10-18] MEDS: SUBUTEX 4 MG SL ×3 (08:41→17:41)
[2024-10-18] MEDS: PROTONIX 40 MG PO (08:41)
[2024-10-18] MEDS: DELTASONE 10 MG PO (08:42)
[2024-10-18] MEDS: VITAMIN D3 (cholecalciferol) 125 MCG PO ×2 (08:42→20:26)
[2024-10-18] MEDS: NEUTRA-PHOS POWDER PACKET 250 MG PO ×2 (08:42→20:26)
[2024-10-18 09:42] LABS: ALT (SGPT) 13 U/L (0-35); AST (SGOT) 13 U/L (14-36); Albumin 2.1 g/dl (3.5-5.0); Alkaline Phosphatase 54 U/L (38-126); Blood Urea Nitrogen 10 mg/dl (7-17); Calcium 6.9 mg/dl (8.4-10.2); Carbon Dioxide 24 mmol/L (22-30); Chloride 110 mmol/L (98-107); Estimated Creatinine Clearance 103 ml/min; Glucose 110 mg/dl (70-99); Potassium 3.5 mmol/L (3.5-5.1); Sodium 134 mmol/L (135-145); Total Protein 4.0 g/dl (6.3-8.2); eGFR > 60.00
--- NOTE | 2024-10-18 09:45 | PHA.VAN.FU ---
Vancomycin Assessment / Plan
- Assessment
Renal Function: Stable
WBC's are: WNL
In the past 24 hrs, patient has been: Afebrile
- Dosing Plan
Continue: Vanc 1000mg Q12H
- Monitoring Plan
No level(s) ordered at this time: consider levels in next few days
- Follow Up
Pharmacy will continue to follow.
Vancomycin Follow UP
- -
Patient Age: 39
Patient Sex: Female
Vancomycin Day #: 2
Indication: Skin And Soft Tissue
Requesting Provider: Dr. Bone
Pertinent Antimicrobial Allergies:
penicillins - itching, angioedema
Height / Weight:
Height 5 ft 3 in
Actual Weight 63.957 kg
- Vital Signs / Lab Results
Temp Pulse Resp BP Pulse Ox
98.1 F 84 16 106/67 96
10/18/24 08:19 10/18/24 08:19 10/18/24 08:19 10/18/24 08:19 10/18/24 08:19
Lab Results - Hematology
10/16/24 10/17/24 10/18/24
11:14 09:30 07:52
WBC 10.7 6.8 6.3
Lab Results - Chemistry
10/16/24 10/17/24 10/18/24
11:14 09:30 07:52
BUN 28 H 13 10
Creatinine 0.6 0.6 0.6
Estimated Creat Clear 103 103 103
Albumin 2.6 L 2.1 L
[2024-10-18] MEDS: CALCIUM GLUCONATE 100 IV (10:29)
--- NOTE | 2024-10-18 10:54 | W.PN.HOSP.TC ---
Today's Communication/Plan
-
Transfuse
Antibiotics
Orthopedics consult
Oral potassium
IV calcium
Labs in the morning
Assessment / Plan
Assessment / Plan
Gen-AAOx3, NAD
HEENT-NC, AT, anicteric, clear oral mm
Neck-supple
CV-reg, no M, +S1/S2
Lungs-clear B/L
Abd-soft, NT, ND
Ext-no edema
Musculoskeletal-no cyanosis, clubbing, left elbow erythema and point tenderness over olecranon, normal range of motion
Skin-warm and dry
Neuro-grossly non-focal
Psych-calm, cooperative
Acute occlusive LUE DVT, acute nonocclusive left lower extremity DVT -extensive occlusive thrombus involving the left axillary vein, small volume thrombus in the proximal left brachial vein. Occlusive thrombus in the proximal left basilic vein and
nonocclusive thrombus in the mid to distal left basilic vein.
Suspect trigger is underlying Crohn's disease as well as oral contraceptives.
No evidence of venous thoracic outlet syndrome as per vascular surgery.
She denies previous history of DVT.
Clinical trial data does not confirm risk of VTE from Rinvoq. Nevertheless, I told patient to discontinue on discharge and speak with her GI physician.
Acute on chronic anemia -hemoglobin still low at 6.4. Has had 3 units of blood so far. Plan for 2 more units transfusion today. No evidence of hemolysis.
Does have iron deficiency as noted on labs. Previous blood work confirmed B12 deficiency.
Continue B12 repletion. IV iron ordered.
Hematology consulted.
She has menses about every 3 months, they are not heavy.
Recommend she speak with her GI physician about the iron deficiency anemia as the Crohn disease is likely the culprit.
Left elbow skin/soft tissue infection -possible olecranon bursitis. Slowly improving. No evidence of septic arthritis. Continue IV vancomycin. Obtain orthopedic consult.
Hyponatremia - labs consistent with SIADH, unclear etiology. Fluid restriction ordered.
Hypocalcemia -ionized calcium 1.08. IV calcium gluconate ordered. Continue vitamin D and oral calcium.
Crohn's disease -on Rinvoq and prednisone chronically. Discontinue Rinvoq as above. Discussed with patient.
Baseline prednisone dose is 5 mg twice daily but she increased it to 10 mg in the morning and 5 mg in the evening about a month ago due to recurrence of abdominal pain. This managed to control her pain.
Appreciate Dr. 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
Chronic hypoalbuminemia -due to underlying Crohn's disease. Chronic bilateral lower extremity edema. She takes furosemide as needed, last dose 2 days prior to admission.
History of opiate dependence/abuse -on chronic Suboxone.
Full code
Anticipated Discharge: > 48 hours
Subjective/Interval History
-
Date of Service: October 18, 2024
Patient seen and examined. Still having left elbow pain but slightly better compared to yesterday.
Objective Data
-
Labs:
Laboratory Results
10/18/24 10/18/24 10/18/24
00:58 07:52 08:40
WBC 6.3
Hgb 6.4 L*
Hct 21.0 L
Plt Count 235
APTT 94.2 H 90.6 H Cancelled
Sodium 134 L
Potassium 3.5
Chloride 110 H
Carbon Dioxide 24
BUN 10
Creatinine 0.6
Glucose 110 H
Calcium 6.9 L*
Total Bilirubin 0.1 L
AST 13 L
ALT 13
Alkaline Phosphatase 54
Vital Signs:
Vital Signs
Temp Pulse Resp BP Pulse Ox
98.1 F 84 16 106/67 96
10/18/24 08:19 10/18/24 08:19 10/18/24 08:19 10/18/24 08:19 10/18/24 08:19
I&O
10/17/24 10/18/24 10/19/24
06:59 06:59 06:59
Intake Total 500 / 500 1210 / 1210
Balance 500 / 500 1210 / 1210
Review of Systems
-
History Source: Patient
All other systems: Reviewed and negative
--- NOTE | 2024-10-18 11:13 | VATNOTE ---
Unsuccessful x2 attempts to place new PIV. Unable to use left arm due to DVT. Will have second VAT RN attempt.
[2024-10-18] MEDS: KCL 40 MEQ PO (11:38)
--- NOTE | 2024-10-18 13:21 | W.PN.ONC ---
Documented by User: Laure Bill DO, Resident 10/18/24 13:44
Today's Communication / Plan
-
2 units of pRBCs today
Ordered HEIDE, haptoglobin, Reticulocyte count, LDH
Impression
Impression
Acute Occlusive Left Upper Extremity DVT
Acute on Chronic Symptomatic Anemia
Hyponatremia
Crohn�s Disease
Chronic Hypoalbuminemia
Plan
Plan
Acute Occlusive Left Upper Extremity DVT
-US of the left upper extremity on 10/16/2024: Extensive occlusive thrombus involving the left axillary vein, small volume thrombus in the proximal left brachial vein, occlusive thrombus in the proximal left basilica vein and nonexclusive thrombus in
the mid to distal left basilic vein.
-Continue Heparin
-Pending Cardiolipin, [id number], Lupus anticoagulant
-Will monitor
Acute on Chronic Symptomatic Anemia
-Hemoglobin of 4.7 on admission,
-Iron 22 (L), TIBC 377 (N), % Saturation 5 (L), Ferritin 4.5 (L) - Iron deficiency Anemia
-Repeat labs following administration of 2 units of pRBCs showed hemoglobin of 6.3. Increased further to 7.4 after an additional unit, but has decreased to 6.4 today
-2 more units of pRBCs have been ordered for today
-Continue IV Iron as patient tolerated this well in the ED with no side effects despite listed iron allergy
-Follow H&H closely
-Ordered HEIDE, haptoglobin, Reticulocyte count, LDH
-Recommend GI follow up in the setting of Crohn's disease and anemia with no clear source of bleed
-Will monitor
Subjective/Objective
Subjective/Objective
Patient is doing well today. She denies any known sources for bleeding, and denies any dark or bloody stools. She overall feels better than when she first came in.
Vital Signs:
Vital Signs
Temp Pulse Resp BP Pulse Ox
98.1 F 84 16 106/67 96
10/18/24 08:19 10/18/24 08:19 10/18/24 08:19 10/18/24 08:19 10/18/24 08:19
Lab Results:
Laboratory Data
WBC 6.3 10^3/uL (4.8-10.8) 10/18/24 07:52
Hgb 6.4 g/dL (12.0-16.0) L* 10/18/24 07:52
Plt Count 235 10^3/uL (130-400) 10/18/24 07:52
PT 12.8 Sec (11.4-14.6) 10/16/24 11:14
INR 0.92 10/16/24 11:14
APTT Cancelled 10/18/24 08:40
eGFR > 60.00 10/18/24 07:52
Orders
Orders
Orders From Last 24 Hours
10/17/24 14:00
Ferric Gluconate [Ferrlecit] 125 mg 0.9% Sodium Chloride 100 ml [Nss] 100 ml IV DAILY@1400
10/18/24 07:52
[id number] Panel [S] IN AM
Cardiolipin Ab Panel [S] IN AM
Lupus Anticoagulant Panel Refl [S] IN AM

Documented by User: Rafael Zaldivar MD 10/18/24 14:18
Plan
Plan
Acute Occlusive Left Upper Extremity DVT
-US of the left upper extremity on 10/16/2024: Extensive occlusive thrombus involving the left axillary vein, small volume thrombus in the proximal left brachial vein, occlusive thrombus in the proximal left basilica vein and nonexclusive thrombus in
the mid to distal left basilic vein.
-Continue Heparin
-Pending Cardiolipin, [id number], Lupus anticoagulant
-Will monitor
Acute on Chronic Symptomatic Anemia
-Hemoglobin of 4.7 on admission,
-Iron 22 (L), TIBC 377 (N), % Saturation 5 (L), Ferritin 4.5 (L) - Iron deficiency Anemia
-Repeat labs following administration of 2 units of pRBCs showed hemoglobin of 6.3. Increased further to 7.4 after an additional unit, but has decreased to 6.4 today
-2 more units of pRBCs have been ordered for today
-Continue IV Iron as patient tolerated this well in the ED with no side effects despite listed iron allergy
-Follow H&H closely
-Ordered HEIDE, haptoglobin, Reticulocyte count, LDH
-Recommend GI follow up in the setting of Crohn's disease and anemia with no clear source of bleed
-Will monitor
Hematology Addendum:
Patient seen and evaluated and agree w/ resident note and plan
-hemoglobin drop again today to 6.4g/dl
-remains unclear if patient experiencing GI blood loss in the setting of Crohns now on anticoagulation for UE DVT
-recommend GI assessment for GI blood loss
-will check retic, LDH, and haptoglobin as well as HEIDE
-IV ferrlecit - iron repletion therapy
-transfuse PRBCs prn
-follow CBC
-anticoagulation ongoing for UE DVT
[2024-10-18 14:51] LABS: Reticulocyte Count 3.0 % (0.4-2.8)
[2024-10-18 14:54] LABS: LDH 190 U/L (120-246)
--- NOTE | 2024-10-18 15:46 | CM ---
Chart reviewed. Met with pt at bedside. IMM given. Pt to receive more blood products. No change in discharge plan
Plan: Home with no needs.
[2024-10-18] MEDS: ROCALTROL 0.25 MCG PO (17:42)
[2024-10-18] MEDS: LEXAPRO 10 MG PO (18:49)
--- NOTE | 2024-10-18 18:54 | CON.ORTHO ---
Consultation
-
Date/Time Consultation Requested: 1053 10/18/2024
Date/Time Consultation Performed: 1620 10/18/2024
Requesting Provider: Dr. Saldivar
Performing Provider: Joon Alfaro MD
Reason for Consultation: L elbow pain
Consultation - Orthopedics
History
Orthopedic Surgery Note
CC: L elbow pain
HPI: 39-year-old female presents with about a week of left elbow pain and erythema. She has had some chronic erythema from the posterior elbow on surfaces but over the last week has noticed pain with direct contact. She denies direct trauma or
open wounds. She denies pain with active elbow motion. She presented to the emergency department and was noted to be significantly anemic. She is currently being transfused. She is on IV antibiotics.
PMH/PSH: Chronic anemia, crohn's, depression, GERD, osteoporosis, history of bowel resection
Medications: reviewed
Family History: Family history was reviewed. Noncontributory
Social history: Nonsmoker
Exam
General appearance: Pleasant. No acute distress.
Head: Normocephalic/atraumatic
Nose: No lesions or discharge.
Skin: No obvious rashes or open wounds
Lungs: No audible wheezing, no cough or sputum production
Musculoskeletal:
LUE:
skin intact without open wounds
fires r/u/m/ain/pin
sensation intact to light touch r/u/m
no pain with active elbow motion
erythema over olecranon without effusion of bursa
ttp over olecranon bursa with bogginess without flucturance
Fingers wwp, 1+ radial pulse
Xrays: Left elbow x-rays show well-preserved joint spaces without signs of displaced fracture or signs of focal bony erosion or calcific changes about the olecranon bursa.
AP: 39-year-old female with about a week of left olecranon pain and erythema. Findings likely consistent with septic olecranon bursitis. There is no fluid collection to be aspirated. We discussed treatment options including nonoperative antibiotic
treatment. We discussed indications for surgical treatment. Low concern for the need for acute surgical intervention. Recommend antibiotic treatment at discretion of the medical team. All questions were answered.
Joon Alfaro MD
> 75 minutes was spent reviewing the clinical information, evaluating the patient, and formulating clinical plan.
Allergies / Home Medications
Allergy/AdvReac Type Severity Reaction Status Date / Time
cefazolin Allergy itching, Verified 10/17/24 13:01
angiodemea,
throat
swelling
occurred
10/17/24
iron (From Venofer) Allergy Shortness Verified 10/16/24 10:10
of Breath
kiwi Allergy Anaphylaxis Verified 10/16/24 10:10
�Medication �Instructions �Recorded
escitalopram oxalate 10 mg tablet 10 mg PO QPM Mental Health/Anxiety 04/18/20
pantoprazole 40 mg tablet,delayed 40 mg PO DAILY Gastrointestinal 04/18/20
release issue
multivitamin with folic acid 400 1 tab PO HS Supplement 03/31/21
mcg tablet (Tab-A-Anna)
buprenorphine 8 mg-naloxone 2 mg 0.5 tab sublingual 02/02/24
sublingual tablet TID@0800,1200,1600 Opioid use
disorder
cyanocobalamin (vitamin B-12) 1,000 mcg IM QMONTH Supplement 02/02/24
1,000 mcg/mL injection solution
upadacitinib 30 mg tablet,extended 30 mg PO HS CROHN'S 02/02/24
release 24 hr (Rinvoq)
calcium carbonate 1,200 mg PO BID Supplement 08/06/24
cholecalciferol (vitamin D3) 125 125 mcg PO BID Supplement 08/06/24
mcg (5,000 unit) tablet (Vitamin
D3)
furosemide 20 mg tablet 20 mg PO DAILYPRN PRN swelling 08/06/24
from excess fluid
magnesium oxide 500 mg capsule 500 mg PO HS Supplement 08/06/24
nicotine 7 mg/24 hr daily 1 patch transdermal Q24H cigarette 08/06/24
transdermal patch withdraw
potassium 99 mg tablet 99 mg PO BID Supplement 08/06/24
prednisone 5 mg tablet 5 mg PO HS crohn's disease 08/06/24
cyanocobalamin (vitamin B-12) 1,000 mcg PO DAILY #30 caps 08/10/24
1,000 mcg capsule
calcitriol 0.25 mcg capsule 0.25 mcg PO QPM Kidney Disease 10/16/24
ibuprofen 200 mg tablet 400 mg PO BIDPRN PRN mild pain 10/16/24
levonorgestrel 0.15 mg-ethinyl 1 tab PO DAILY 10/16/24
estradiol 30 mcg tablets,3 mos
pack(91)
ondansetron 4 mg disintegrating 4 mg translingual QIDPRN PRN nausea 10/16/24
tablet
potassium, sodium phosphates 280 1 packet PO BID 10/16/24
mg-160 mg-250 mg oral powder packet
prednisone 10 mg tablet 10 mg PO DAILY Crohn's disease 10/16/24
Vital Signs / Lab Results
Temp Pulse Resp BP Pulse Ox
98.1 F 83 16 139/77 96
10/18/24 18:29 10/18/24 18:29 10/18/24 18:29 10/18/24 18:29 10/18/24 18:29
10/18/24 07:52
10/18/24 07:52
[2024-10-18] MEDS: FERRLECIT IV (18:56)
[2024-10-18] MEDS: NICODERM TRANSDERMAL 7 MG TRANSDERM (20:25)
[2024-10-18] MEDS: THERAGRAN 1 TABLET PO (21:10)
[2024-10-18] MEDS: DELTASONE 5 MG PO (21:10)
[2024-10-18] MEDS: MAGNESIUM OXIDE 400 MG PO (21:10)
[2024-10-19] MEDS: VANCOCIN 200 IV (05:11)
[2024-10-19 05:14] LABS: Hematocrit 28.7 % (37.0-47.0); Hemoglobin 9.0 g/dL (12.0-16.0); Mean Corp Hgb Conc. 31.4 g/dL (33.0-37.0); Mean Corpuscular Volume 84.7 fL (81.0-99.0); Platelet Count 212 10^3/uL (130-400); Red Cell Dist. Width 16.8 % (11.5-14.5)
[2024-10-19 05:20] LABS: APTT 75.2 Sec (23.4-35.0)
[2024-10-19 06:00] LABS: Blood Urea Nitrogen 11 mg/dl (7-17); Calcium 7.8 mg/dl (8.4-10.2); Carbon Dioxide 23 mmol/L (22-30); Chloride 112 mmol/L (98-107); Estimated Creatinine Clearance 103 ml/min; Glucose 181 mg/dl (70-99); Potassium 4.1 mmol/L (3.5-5.1); Sodium 135 mmol/L (135-145); eGFR > 60.00
[2024-10-19] MEDS: TORADOL 15 MG IV (06:47)
[2024-10-19 07:07] VITALS: BP 139/75
[2024-10-19] MEDS: DELTASONE 10 MG PO (08:09)
[2024-10-19] MEDS: VITAMIN D3 (cholecalciferol) 125 MCG PO (08:09)
[2024-10-19] MEDS: VITAMIN B-12 1000 MCG PO (08:09)
[2024-10-19] MEDS: PROTONIX 40 MG PO (08:09)
[2024-10-19] MEDS: SUBUTEX 4 MG SL ×2 (08:09→11:32)
[2024-10-19] MEDS: OSCAL 500 + D 1000 MG PO (08:09)
[2024-10-19] MEDS: NEUTRA-PHOS POWDER PACKET 250 MG PO (08:10)
--- NOTE | 2024-10-19 08:35 | W.PN.HOSP.TC ---
Today's Communication/Plan
-
Transition to Eliquis
Discharge
Assessment / Plan
Assessment / Plan
Gen-AAOx3, NAD
HEENT-NC, AT, anicteric, clear oral mm
Neck-supple
CV-reg, no M, +S1/S2
Lungs-clear B/L
Abd-soft, NT, ND
Ext-no edema
Musculoskeletal-no cyanosis, clubbing, left elbow erythema and point tenderness over olecranon, normal range of motion
Skin-warm and dry
Neuro-grossly non-focal
Psych-calm, cooperative
Acute occlusive LUE DVT, acute nonocclusive left lower extremity DVT -extensive occlusive thrombus involving the left axillary vein, small volume thrombus in the proximal left brachial vein. Occlusive thrombus in the proximal left basilic vein and
nonocclusive thrombus in the mid to distal left basilic vein.
Suspect trigger is underlying Crohn's disease as well as oral contraceptives.
No evidence of venous thoracic outlet syndrome as per vascular surgery.
She denies previous history of DVT.
Clinical trial data does not confirm risk of VTE from Rinvoq. Nevertheless, I told patient to discontinue on discharge and speak with her GI physician.
Transition IV heparin to Eliquis today, case management to look into cost.
Acute on chronic anemia -hemoglobin improved to 9.0, transfused 5 units of blood so far. No evidence of hemolysis.
Does have iron deficiency as noted on labs. Previous blood work confirmed B12 deficiency.
Continue B12 repletion. IV iron ordered.
Hematology consulted.
She has menses about every 3 months, they are not heavy.
Recommend she speak with her GI physician about the iron deficiency anemia as the Crohn disease is likely the culprit.
Left elbow septic olecranon bursitis -improved. Currently on IV vancomycin. Did not tolerate cefazolin due to possible allergic reaction. Can transition to doxycycline on discharge, treat for 2 weeks total. Appreciate orthopedics input.
Hyponatremia - labs consistent with SIADH, unclear etiology. Fluid restriction ordered. Sodium improved.
Hypocalcemia -ionized calcium 1.08. IV calcium gluconate ordered. Continue vitamin D and oral calcium. Calcium improved to 7.8. Albumin 2.1.
Crohn's disease -on Rinvoq and prednisone chronically. Discontinue Rinvoq as above. Discussed with patient.
Baseline prednisone dose is 5 mg twice daily but she increased it to 10 mg in the morning and 5 mg in the evening about a month ago due to recurrence of abdominal pain. This managed to control her pain.
Appreciate Dr. 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
Chronic hypoalbuminemia -due to underlying Crohn's disease. Chronic bilateral lower extremity edema. She takes furosemide as needed, last dose 2 days prior to admission.
History of opiate dependence/abuse -on chronic Suboxone.
Full code
Dispo -stable for discharge today. Outpatient follow-up with PCP, hematology, gastroenterology.
35 minutes spent in discharge process.
Anticipated Discharge: Today
Subjective/Interval History
-
Date of Service: October 19, 2024
Patient seen and examined. Feeling better, left elbow pain improved.
Objective Data
-
Labs:
Laboratory Results
10/19/24
05:00
WBC 5.5
Hgb 9.0 L D
Hct 28.7 L
Plt Count 212
APTT 75.2 H
Sodium 135
Potassium 4.1
Chloride 112 H
Carbon Dioxide 23
BUN 11
Creatinine 0.5 L
Glucose 181 H
Calcium 7.8 L
Vital Signs:
Vital Signs
Temp Pulse Resp BP Pulse Ox
98.0 F 76 16 139/75 97
10/19/24 07:07 10/19/24 07:07 10/19/24 07:07 10/19/24 07:07 10/19/24 07:07
I&O
10/18/24 10/19/24 10/20/24
06:59 06:59 06:59
Intake Total 1210 / 1210 250 / 250
Balance 1210 / 1210 250 / 250
Review of Systems
-
History Source: Patient
All other systems: Reviewed and negative
--- NOTE | 2024-10-19 08:40 | W.PN.UPDATE ---
Update Note
Progress Note Update
Patient has left elbow septic olecranon bursitis. This morning she reports that it seems much better. She has been afebrile with normal white count. Posterior aspect of the left elbow has erythema without fluid accumulation. Passive motion is
full without pain. No effusion noted in the elbow. Distal neurovascular was intact. I recommend warm compress and/or K-pad along with antibiotics as ordered. Continue to observe for now.
--- NOTE | 2024-10-19 08:53 | W.DS.TRANS ---
DC Summary - Speech Language Pathology Assistant
-
Discharge Instructions:
Discharge Diagnosis/Procedures Symptomatic anemia, left upper extremity and
left lower extremity DVT, left elbow septic
bursitis
Diet Regular
Activity As tolerated
Driving Restrictions As prior to admission
Bathing Restrictions None
Instructions:
Stand-Alone Forms:
Changes to Home Medications: Yes
Discharge Medications:
DC Medications w/original date entered in [facility]
escitalopram oxalate 10 mg tablet 10 mg PO QPM Mental Health/Anxiety 04/18/20
pantoprazole 40 mg tablet,delayed release 40 mg PO DAILY Gastrointestinal issue 04/18/20
multivitamin with folic acid 400 mcg tablet (Tab-A-Anna) 1 tab PO HS Supplement 03/31/21
buprenorphine 8 mg-naloxone 2 mg sublingual tablet 0.5 tab sublingual TID@0800,1200,1600 Opioid use disorder 02/02/24
cyanocobalamin (vitamin B-12) 1,000 mcg/mL injection solution 1,000 mcg IM QMONTH Supplement 02/02/24
calcium carbonate 1,200 mg PO BID Supplement 08/06/24
cholecalciferol (vitamin D3) 125 mcg (5,000 unit) tablet (Vitamin D3) 125 mcg PO BID Supplement 08/06/24
furosemide 20 mg tablet 20 mg PO DAILYPRN PRN swelling from excess fluid 08/06/24
magnesium oxide 500 mg capsule 500 mg PO HS Supplement 08/06/24
nicotine 7 mg/24 hr daily transdermal patch 1 patch transdermal Q24H cigarette withdraw 08/06/24
potassium 99 mg tablet 99 mg PO BID Supplement 08/06/24
prednisone 5 mg tablet 5 mg PO HS crohn's disease 08/06/24
cyanocobalamin (vitamin B-12) 1,000 mcg capsule 1,000 mcg PO DAILY #30 caps 08/10/24
calcitriol 0.25 mcg capsule 0.25 mcg PO QPM Kidney Disease 10/16/24
ibuprofen 200 mg tablet 400 mg PO BIDPRN PRN mild pain 10/16/24
ondansetron 4 mg disintegrating tablet 4 mg translingual QIDPRN PRN nausea 10/16/24
potassium, sodium phosphates 280 mg-160 mg-250 mg oral powder packet 1 packet PO BID 10/16/24
prednisone 10 mg tablet 10 mg PO DAILY Crohn's disease 10/16/24
apixaban 5 mg tablet (Eliquis) 5 mg PO BID #90 tabs 10/19/24
doxycycline hyclate 100 mg tablet 100 mg PO BID #22 tabs 10/19/24
Home Medication Changes
Stop Rinvoq
Stop control pills
Pending Results: No
[2024-10-19] MEDS: ELIQUIS 10 MG PO (08:55)
--- NOTE | 2024-10-19 09:11 | PHA.VAN.FU ---
Vancomycin Assessment / Plan
- Assessment
Renal Function: Stable
WBC's are: WNL
In the past 24 hrs, patient has been: Afebrile
- Dosing Plan
Continue: 1000MG Q12H
- Monitoring Plan
Peak Level: 10/19 @2100
Trough Level: 10/20 @0530
- Follow Up
Pharmacy will continue to follow.
Vancomycin Follow UP
- -
Patient Age: 39
Patient Sex: Female
Vancomycin Day #: 3
Indication: Skin And Soft Tissue
Requesting Provider: Dr. Bone
Pertinent Antimicrobial Allergies:
penicillins - itching, angioedema
Height / Weight:
Height 5 ft 3 in
Actual Weight 63.957 kg
- Vital Signs / Lab Results
Temp Pulse Resp BP Pulse Ox
98.0 F 76 16 139/75 97
10/19/24 07:07 10/19/24 07:07 10/19/24 07:07 10/19/24 07:07 10/19/24 07:07
Lab Results - Hematology
10/16/24 10/17/24 10/18/24
11:14 09:30 07:52
WBC 10.7 6.8 6.3
10/19/24
05:00
WBC 5.5
Lab Results - Chemistry
10/16/24 10/17/24 10/18/24
11:14 09:30 07:52
BUN 28 H 13 10
Creatinine 0.6 0.6 0.6
Estimated Creat Clear 103 103 103
Albumin 2.6 L 2.1 L
10/19/24
05:00
BUN 11
Creatinine 0.5 L
Estimated Creat Clear 103
Albumin
--- NOTE | 2024-10-19 09:16 | CM ---
Attending asked for cost of Eliquis 10 mg BID times 7 days then 5 mg BId. SPoke to her pharmacy, they do not have it in stock unitl next week. Her pharmacy confirms no copay for Eliquis. CM spoke to patient who asked for script for eliquis to go to
[facility] in [place]. Additional pharmacy added to her chart. Attending notified.
[2024-10-19 12:32] LABS: Nucleated Red Blood Cells % 2.7 %
[2024-10-20 22:56] LABS: Beta-2-Glycoprotein I Ab. IgG <10 SGU (<=20); Beta-2-Glycoprotein I Ab. IgM <10 SMU (<=20)
[2024-10-22 22:55] LABS: Anticoagulant Med Neutralizati Hepzyme (Not Performed); Neutralized dRVTT Screen Ratio Not Performed (<=1.20); Prothrombin Time 14.2 s (12.0-15.5); dRVTT 1.1 Mix Ratio Not Performed (<=1.20); dRVTT Confirmation Ratio Not Performed (<=1.20); dRVTT Screen Ratio 1.06 (<=1.20)
== END 2024-10-19 12:37 | disposition home or self-care (01) | DRG 300 ==
LOC: 4 WEST ACU 14:32
PROVIDERS: Emergency Medicine; Nurse Practitioner Family; ADMITTING PHYSICIAN Hospitalist; CONSULT PHYSICIAN Orthopaedic Surgery; CONSULT PHYSICIAN Surgery Vascular Surgery; EMERGENCY PHYSICIAN Emergency Medicine; FAMILY PHYSICIAN Family Medicine; OTHER PHYSICIAN Internal Medicine Hematology & Oncology
PROC: 02HV33Z Insertion of Infusion Device into Superior Vena Cava, Percutaneous Approach (ICD-10-PCS; 2024-10-18)
PROC: 30243N1 Transfusion of Nonautologous Red Blood Cells into Central Vein, Percutaneous Approach (ICD-10-PCS; 2024-10-18)
DX: I82.A12 Acute embolism and thrombosis of left axillary vein (principal); E87.1 Hypo-osmolality and hyponatremia; K50.90 Crohn's disease, unspecified, without complications; F11.20 Opioid dependence, uncomplicated; I82.622 Acute embolism and thrombosis of deep veins of left upper extremity; I82.432 Acute embolism and thrombosis of left popliteal vein; I82.452 Acute embolism and thrombosis of left peroneal vein; I82.442 Acute embolism and thrombosis of left tibial vein; M71.122 Other infective bursitis, left elbow; D50.9 Iron deficiency anemia, unspecified; D63.8 Anemia in other chronic diseases classified elsewhere; E53.8 Deficiency of other specified B group vitamins; E83.51 Hypocalcemia; E88.09 Other disorders of plasma-protein metabolism, not elsewhere classified; F32.A Depression, unspecified; K21.9 Gastro-esophageal reflux disease without esophagitis; M81.0 Age-related osteoporosis without current pathological fracture; Z79.899 Other long term (current) drug therapy; Z87.891 Personal history of nicotine dependence
CPT/HCPCS: 71045; 73080; 73206; 80048; 80053; 82248; 82330; 82728; 83010; 83540; 83550; 83615; 83735; 83935; 84100; 84300; 84443; 84703; 85014; 85018; 85025; 85045; 85610; 85613; 85730; 86146; 86147; 86850; 86880; 86900; 86901; 86920; 86922; 93005; 93970; 93971; 96374; 99285; J2916; P9016; P9058; Q9967

== ENCOUNTER 2024-11-18 13:03 | Inpatient (IN) | payer MEDICARE, OTHER, SELFPAY ==
[2024-11-18] VITALS (13 sets, daily range): BP systolic 99–132; BP diastolic 60–92; BMI 25.9; BMI 25.4
[2024-11-18 11:38] LABS: APTT 34.1 Sec (23.4-35.0)
[2024-11-18 11:43] LABS: ALT (SGPT) 18 U/L (0-35); AST (SGOT) 22 U/L (14-36); Albumin 2.5 g/dl (3.5-5.0); Alkaline Phosphatase 47 U/L (38-126); Blood Urea Nitrogen 26 mg/dl (7-17); Calcium 7.8 mg/dl (8.4-10.2); Carbon Dioxide 20 mmol/L (22-30); Chloride 109 mmol/L (98-107); Glucose 124 mg/dl (70-99); Potassium 3.7 mmol/L (3.5-5.1); Sodium 134 mmol/L (135-145); Total Protein 4.7 g/dl (6.3-8.2); eGFR > 60.00
[2024-11-18 12:04] LABS: Hematocrit 19.3 % (37.0-47.0); Hemoglobin 5.4 g/dL (12.0-16.0); Mean Corp Hgb Conc. 28.0 g/dL (33.0-37.0); Mean Corpuscular Volume 86.5 fL (81.0-99.0); Nucleated Red Blood Cells % 1.6 %; Platelet Count 305 10^3/uL (130-400); Red Cell Dist. Width 19.7 % (11.5-14.5)
--- NOTE | 2024-11-18 12:18 | ED.GENMED ---
History of Present Illness
General
Chief Complaint: Abnormal Lab Value
Source: patient and records
Exam Limitations: none
Time Seen by Provider: 11/18/24 11:57
Nursing documentation reviewed up to this point in time: agreed with
History of Present Illness
History of Present Illness:
39-year-old female with a past medical history as noted significant for seizures, Crohn's disease, chronic anemia, distant history of substance use in the past who presents to the ER for evaluation of weakness and fatigue, outpatient hemoglobin
found to be very low. Patient reports that for the past 1 to 2 weeks she has had increased fatigue, shortness of breath, lightheadedness which prompted her to see her doctor and have outpatient lab work done on this past . She was found to
have low hemoglobin patient says was a little over 6. She was referred to the ER for evaluation. She does note that last week she had some light bright red blood per rectum consistent with prior hemorrhoidal bleeding but has not had bleeding more
recently. She does not have vaginal bleeding she says her last period was months ago and that she is very irregular due to control. She denies any other bleeding. She is maintained on Eliquis for history of DVT. She does have a history of
anemia requiring iron infusions as well as blood transfusions in the past. Incidentally, patient notes that for the past 2 or 3 days she has had mild sore throat and rhinorrhea and tested positive for COVID.
Past History
Past History
ED Past Medical History: Other (crohns, chronic anemia, narcotic abuse) and Other (Previous seizure from narcotic as well as from Wellbutrin withdrawal, Crohn's disease, anemia, previous small bowel obstruction,)
ED Past Surgical History: Appendectomy, Bowel resection ( X5 due to Crohn's), Gynecological and Other (Hernia repair X2)
Social History
Tobacco: Former smoker
Alcohol: None
Drug: Former user (on suboxone)
Personal: Single
Living: with family
Employment: Not employed
Family History
Family History: Other (Crohn's disease)
Review of Systems
Review of Systems
All Other Systems: ROS reviewed and negative except as documented in HPI and ROS
Constitutional: Reports fatigue; Denies fever or chills
EENT: Reports sore throat and runny nose
Respiratory: Reports cough and trouble breathing
Cardiac: Denies chest pain
ABD/GI: Reports bloody stools (Last week, resolved currently); Denies abdominal pain, nausea or vomiting
: Denies flank pain or bleeding
Neurological: Reports dizzy; Denies headache
Phy Exam
Physical Exam
Physical Exam:
General: Awake, alert, nontoxic appearing
Head: Normocephalic, atraumatic
Eyes: Pale conjunctiva, EOMI
Throat: Airway intact, handling secretions
Neck: Trachea midline, supple without meningismus
Lungs: Clear to auscultation bilaterally, no wheezing, rales, rhonchi
Heart: Tachycardia with rhythm, no murmurs, gallops, or rubs
Abd: Soft, non distended, nontender
Rectal: External hemorrhoids noted with no active bleeding; on digital rectal examination there is no stool in the rectal vault, no blood noted, no masses
Neuro: Grossly intact
Skin: Very pale, no rash
Extremities: No edema in extremities, equal pulses in all extremities
Scores
Heart Failure Risk
Heart Failure Risk Score: Not Applicable
Heart Score for Chest Pain Patients
STEMI patient?: Not applicable
Withdrawal Assessment of Alcohol
Withdrawal Assessment Completed?: Not applicable
Course
Orders/Labs/Results
Orders:
Orders
11/18/24 11:20
Type And Crossmatch [Type+Screen] Urgent
Complete Blood Count/With Diff Urgent
Comprehensive Metabolic Panel Urgent
PTT Urgent
11/18/24 12:03
Add On- LAB Urgent
Tests Added?: HCG qual
11/18/24 12:16
B12 [Vitamin B12] Urgent
Ferritin Urgent
Folate Urgent
Ionized Calcium Urgent
Iron Urgent
Total Iron Binding Urgent
Vitamin D, 25-OH Urgent
11/18/24 12:17
* Blood Bank Products Urgent
Blood Bank Products: *Packed RBC Leuko(PRBC's)
Quantity: 2
Transfuse Today: Yes
Reason: Anemia
Abnormal Lab Results
11/18/24
11:20
RBC 2.23 L 10^6/uL
(4.20-5.40)
Hgb 5.4 L* g/dL
(12.0-16.0)
Hct 19.3 L* %
(37.0-47.0)
MCH 24.2 L pg
(27.0-31.0)
MCHC 28.0 L g/dL
(33.0-37.0)
RDW 19.7 H %
(11.5-14.5)
Abs Immat Gran (auto) 0.1 H 10^3/uL
(0-0.05)
Absolute Lymphs (auto) 0.3 L 10^3/uL
(1.2-3.4)
Immature Gran % 0.9 H %
(0-0.5)
Neutrophils % 85.0 H %
(42.2-75.2)
Lymphocytes % 5.3 L %
(20.5-51.1)
Sodium 134 L mmol/L
(135-145)
Chloride 109 H mmol/L
(98-107)
Carbon Dioxide 20 L mmol/L
(22-30)
BUN 26 H mg/dl
(7-17)
Glucose 124 H mg/dl
(70-99)
Calcium 7.8 L mg/dl
(8.4-10.2)
Total Protein 4.7 L g/dl
(6.3-8.2)
Albumin 2.5 L g/dl
(3.5-5.0)
11/18/24 11:20
11/18/24 11:20
Vital Signs
Initial and Last Documented VS:
Initial Vital Signs
Temp Pulse Resp BP Pulse Ox
36.8 C 103 18 132/92 98
11/18/24 11:12 11/18/24 11:12 11/18/24 11:12 11/18/24 11:12 11/18/24 11:12
Last Documented Vital Signs
Temp Pulse Resp BP Pulse Ox
36.8 C 103 18 132/92 98
11/18/24 11:12 11/18/24 11:12 11/18/24 11:12 11/18/24 11:12 11/18/24 11:12
MDM/Problems Addressed
Differential Diagnosis Includes:
Symptomatic anemia: GI bleeding/blood loss, iron deficiency, other nutritional deficiency, anemia chronic disease, hemolysis
MDM/Problems Addressed:
39-year-old female presents to the ER for evaluation of fatigue, shortness of breath, lightheadedness�outpatient labs found acute on chronic anemia. Incidentally she has also been having URI symptoms for the past 2 or 3 days and tested positive for
COVID as an outpatient. She is tachycardic but blood pressure acceptable. Physical exam is as above. Labs were sent off today which showed a hemoglobin of 5.4 prior baseline between 9 and 10. Chemistry shows mild hypocalcemia, mild hyponatremia.
Send type and screen. Added reticulocyte count, iron studies, B12/folate. Will transfuse 2 units of PRBCs. She is not actively bleeding today but reported some rectal bleeding last week; she is maintained on Eliquis will monitor for additional
bleeding, trend hemoglobin status posttransfusion. Hold on reversal of anticoagulant for the time being but low threshold if bleeding noted or change in hemodynamic status. Discussed case with hospitalist for admission
Chronic conditions affecting care:
Crohn's disease, chronic anemia, hemorrhoids
*Pulse Oximetry
SaO2: 98
Oxygen Mode of Delivery: Room air
Patient hypoxic: no (98%)
*Critical Care Note
Total Time (30-74mins, 75-104mins- exclusive of procedures): 30
comment:
Critical care statement: A total of 30 minutes of critical care time was provided for this patient. This includes management of unstable vital signs, evaluation of the patient at bedside, frequent reassessment, discussion with
consultants/hospitalist, and review of pertinent medical records. This time was separate from time utilized to perform any aforementioned documented procedures
Data Reviewed
Review of Other/Old Records Reveals: Labs, Records and Discharge Summary
Source: patient and records
Prescriptions/Medications Considered But Not Given:
Considered Kcentra for anticoagulant reversal
Patient Management
Discussion with other providers: Hospitalist (Discussed case with hospitalist)
Escalation/DeEscalation of care consider admission/obs:
Admission indicated
ED Attending Note
-
Portions of this chart may have been created with voice recognition software.� Occasional wrong word or��sound alike� substitutions may have occurred due to the inherent limitations of voice recognition software.
Discharge Plan
Departure
Patient Disposition: Admit
Date of Disposition: 11/18/24
Time of Disposition: 12:21
Admit to doctor: Bebeto
Presentation/result/management discussed w/ accepting MD/DO: Hospitalist
Discharge Problem:
Anemia, COVID-19
Prescriptions:
No Action
pantoprazole 40 MG tablet,delayed release (DR/EC)
40 mg PO DAILY
escitalopram oxalate 10 MG tablet
10 mg PO QPM
multivitamin with folic acid [Tab-A-Anna] 1 TABLET tablet
1 tab PO HS
cyanocobalamin (vitamin B-12) 1,000 mcg/mL Solution
1,000 mcg IM QMONTH
buprenorphine-naloxone 8-2 mg Tablet, Sublingual
0.5 tab SUBLINGUAL TID@0800,1200,1600
prednisone 5 mg tablet
5 mg PO HS
calcium carbonate 600 mg calcium (1,500 mg) Tablet
1,200 mg PO BID
potassium 99 mg Tablet
99 mg PO BID
nicotine 7 mg/24 hr Patch 24 Hour
1 patch TRANSDERMAL Q24H
magnesium oxide 500 mg Capsule
500 mg PO HS
cholecalciferol (vitamin D3) [Vitamin D3] 125 mcg (5,000 unit) Tablet
125 mcg PO BID
furosemide 20 mg tablet
20 mg PO DAILYPRN PRN (Reason: swelling from excess fluid)
cyanocobalamin (vitamin B-12) 1,000 mcg capsule
1,000 mcg PO DAILY Qty: 30 0RF
prednisone 10 mg Tablet
10 mg PO DAILY
ibuprofen 200 mg Tablet
400 mg PO BIDPRN PRN (Reason: mild pain)
ondansetron 4 mg tablet,disintegrating
4 mg translingual QIDPRN PRN (Reason: nausea)
calcitriol 0.25 mcg capsule
0.25 mcg PO QPM
potassium, sodium phosphates 280-160-250 mg Powder In Packet
1 packet PO BID
Eliquis 5 mg tablet
5 mg PO BID Qty: 90 0RF
Rx Instructions:
2 tabs (10mg) twice daily for 13 doses then 1 tab (5mg) twice daily
doxycycline hyclate 100 mg tablet
100 mg PO BID Qty: 22 0RF
Referrals:
Petrona Chavarria MD [Family Provider, Family Practice]
Interventions
Interventions:
*General Assessment Last Done: 11/18/24 11:12
Discharge Date and Time
Print Language: BELARUSIAN
--- NOTE | 2024-11-18 12:23 | HPS.HSE ---
Addendum entered and electronically signed by Yahaira Tate MD 11/18/24 14:35:
This is an addendum to H&P written by Jennifer Ortiz on 11/18/2024. �Patient seen and examined independently with PECAN GROWER.
39-year-old female past medical history of left upper extremity DVT, left lower extremity DVT, chronic symptomatic anemia, left elbow septic olecranon bursitis, hyponatremia, Crohn's disease, chronic hypoalbuminemia, chronic opiate dependence,
presenting with shortness of breath and palpitations, cough runny nose and congestion over few days. �Had hemorrhoidal bleeding last week which resolved on its own. �Had outpatient lab work which showed hemoglobin of 5.4 so she was sent into the
hospital. �She tested herself at home and was positive for COVID at home.
She was recently admitted from 10/16 to 10/19 for DVT of the left upper extremity attributed to Rinvoq from Crohn's disease as well as symptomatic anemia with hemoglobin 4.7 requiring 5 units of blood transfusion to 9. �Anemia was thought to be related
to Crohn's disease but no active evidence of bleeding. �She also had left elbow septic olecranon bursitis treated with antibiotics.
Vital signs show tachycardia 103. �Rectal exam showed no stool or blood in the vault. �External hemorrhoids without active bleeding.
Labs show hemoglobin of 5.4.
Patient with symptomatic recurrent anemia likely from chronic blood loss from Crohn's disease/malabsorption/recent hemorrhoidal bleeding. �No active bleeding. �2 units blood transfusion, check iron studies. �Previously outpatient EGD/colonoscopy was
recommended by GI. �Discussed with GI and they wanted to continue to follow-up outpatient for EGD/colonoscopy. �Hold Eliquis and start heparin drip. �Patient has an appoint with Dr. Zavala tomorrow. Discussed with colorectal who recommends
outpatient follow up as well.�
Patient with also upper respiratory symptoms tested positive for COVID at home. �Recheck COVID here. �Check chest x-ray.
Original Note:
Family Physician
-
Family Physician: Petrona Chavarria
Chief Complaint
-
cough, congestion
History of Present Illness
39-year-old with past medical history for crohn's disease, chronic anemia, narcotic abuse, seizures, small bowel obstruction presented to us with hemmrhoid bleeding last week. over the weekend she noted sob which was worse with exertion. Patient
complained of palpitation. Patient also noted nonproductive cough, congestion over the weekend. She noted headache. Denies dizziness or syncope. Denies fever, chills, chest pain. Patient denies any abdominal pain, nausea, diarrhea. Patient
denies dysuria or hematuria. Patient has chronic lower extremity edema. She had an outpatient blood work with impression of low hemoglobin and calcium level. She was tested positive for COVID at home.
Upon arrival she was noted to have hemoglobin of 5.4. Transfusing with 2 units of blood. Admitted for further management
she has an appointment with colorectal tomorrow.
Medical History
Past Medical History
Past Medical History: Reports Other
Additional Past Medical History:
Chron's disease, anemia, narcotic abuse, seizures, small bowel obstruction, hypocalcemia, hypomagnesemia, vitamin D deficiency, mitral valve regurgitation
Past Surgical History: Reports Other
Additional Past Surgical History:
Appendectomy, bowel resections, hernia repair,
Social History
Tobacco: Non-smoker
Alcohol: None
Drug: None
Family History
Family History: Not pertinent
Allergies / Home Medications
Allergies reflects when Allergies were last updated in [facility].
Home Medications with original date entered in [facility]
Allergy/Medication List:
Allergies
Allergy/AdvReac Type Severity Reaction Status Date / Time
cefazolin Allergy itching, Verified 11/18/24 11:12
angiodemea,
throat
swelling
occurred
10/17/24
iron (From Venofer) Allergy Shortness Verified 11/18/24 11:12
of Breath
kiwi Allergy Anaphylaxis Verified 11/18/24 11:12
Home Medications
escitalopram oxalate 10 mg tablet 10 mg PO QPM Mental Health/Anxiety 04/18/20
pantoprazole 40 mg tablet,delayed release 40 mg PO DAILY Gastrointestinal issue 04/18/20
multivitamin with folic acid 400 mcg tablet (Tab-A-Anna) 1 tab PO HS Supplement 03/31/21
buprenorphine 8 mg-naloxone 2 mg sublingual tablet 0.5 tab sublingual TID@0800,1200,1600 Opioid use disorder 02/02/24
cyanocobalamin (vitamin B-12) 1,000 mcg/mL injection solution 1,000 mcg IM QMONTH Supplement 02/02/24
calcium carbonate 1,200 mg PO BID Supplement 08/06/24
cholecalciferol (vitamin D3) 125 mcg (5,000 unit) tablet (Vitamin D3) 125 mcg PO BID Supplement 08/06/24
furosemide 20 mg tablet 20 mg PO DAILYPRN PRN swelling from excess fluid 08/06/24
magnesium oxide 500 mg capsule 500 mg PO HS Supplement 08/06/24
nicotine 7 mg/24 hr daily transdermal patch 1 patch transdermal Q24H cigarette withdraw 08/06/24
potassium 99 mg tablet 99 mg PO BID Supplement 08/06/24
prednisone 5 mg tablet 5 mg PO HS crohn's disease 08/06/24
cyanocobalamin (vitamin B-12) 1,000 mcg capsule 1,000 mcg PO DAILY #30 caps 08/10/24
calcitriol 0.25 mcg capsule 0.25 mcg PO QPM Kidney Disease 10/16/24
ibuprofen 200 mg tablet 400 mg PO BIDPRN PRN mild pain 10/16/24
ondansetron 4 mg disintegrating tablet 4 mg translingual QIDPRN PRN nausea 10/16/24
potassium, sodium phosphates 280 mg-160 mg-250 mg oral powder packet 1 packet PO BID 10/16/24
prednisone 10 mg tablet 10 mg PO DAILY Crohn's disease 10/16/24
apixaban 5 mg tablet (Eliquis) 5 mg PO BID #90 tabs 10/19/24
doxycycline hyclate 100 mg tablet 100 mg PO BID #22 tabs 10/19/24
Review of Systems
-
Constitutional: Reports No Symptoms
EENT: Reports Runny Nose
Respiratory: Reports Cough and Trouble Breathing
Cardiac: Reports Palpitations
Abdomen/GI: Reports No Symptoms
: Reports No Symptoms
Musculoskeletal: Reports No Symptoms
Skin: Reports No Symptoms
Neurological: Reports Headache
Endocrine: Reports No Symptoms
Hematologic/Lymphatic: Reports No Symptoms
Psych: Reports No Symptoms
Physical Exam
Vital Signs
Vital Signs
Temp Pulse Resp BP Pulse Ox
98.3 F 103 18 132/92 98
11/18/24 11:12 11/18/24 11:12 11/18/24 11:12 11/18/24 11:12 11/18/24 12:19
Physical Exam
General: Well Developed, Well Nourished and No Apparent Distress
HEENT: NormoCephalic, Moist mucous membranes and Atraumatic
Respiratory: Clear
Cardiac: S1/S2 and Regular Rhythm; No Murmur or Rub
GI: Soft, Non Tender, Non Distended and Normal Bowel Sounds; No Organomegaly
Rectal: Deferred by Provider
Musculoskeletal: No Clubbing, No Cyanosis and Other (Bilateral lower extremities edema)
Skin: No Rash
Neuro: AO x 3 and Nonfocal/grossly intact
Psych: Calm
Laboratory Results
-
11/18/24 11:20
11/18/24 11:20
Laboratory Results
APTT 34.1 Sec (23.4-35.0) 11/18/24 11:20
Total Bilirubin 0.2 mg/dl (0.2-1.3) 11/18/24 11:20
AST 22 U/L (14-36) 11/18/24 11:20
ALT 18 U/L (0-35) 11/18/24 11:20
Alkaline Phosphatase 47 U/L (38-126) 11/18/24 11:20
Data Reviewed
-
Lab Data: Labs Reviewed by me
Impression/Plan
-
# Acute on chronic anemia likely secondary to hemorrhoid bleed/crohn's disease
- Hemoglobin 5.4
- 2 units of PRBCs
- Pending ferritin, folate, calcium, iron, reticulocyte count, TIBC, B12, vitamin D
- continue to monitor CBC
-rectal exam with no stool or blood in the vault
-d/w GI, recommended GI follow up as outpatient
-patient has an GI appoint for EGD and colonoscopy.
# Acute COVID infection
- Obtain COVID
- Continue to monitor
- Mucinex for cough
# DVT
-hold eliquis, will initiate on heparin drip
-eliquis
# Anxiety
- Escitalopram continued
#GERD
-PPI continued
#Crohn's disease
-prednisone chronically.
#Chronic hypoalbuminemia/hypocalcemia-due to underlying Crohn's disease.
- On calcium carbonate
#Chronic bilateral lower extremity edema. She takes furosemide as needed
#History of opiate dependence/abuse -on chronic Suboxone.
Full code
[2024-11-18 13:08] LABS: Reticulocyte Count 5.1 % (0.4-2.8)
--- NOTE | 2024-11-18 13:19 | W.PN.UPDATE ---
Update Note
Progress Note Update
D/w Angel Rodriguez
See note 10/17:
'I spoke with hospitalist Dr. Bone
Question if patient needs inpatient eval
I called and discussed with her outpatient GI doctor Dr. Luis
Pt with long standing anemia
Last egd/colo 2021
Hem negative stool
Plan for outpatient EGD/colo with Dr. Luis - recommend close outpatient GI follow up with Dr. Luis
Also on d/w Dr. Luis plan to stop Rinvoq for now given UE DVT
OK GI POV to start anticoagulation per hematology
If GI can be of further assistance please let us know'
I s/w Angel oRdriguez [employer]
pt with COVID positive
some bright red blood last week
no blood in stool in vault
I sent msg to her outpatient GI doctor Dr. Luis
Given no active bleeding, COVID positive, recurrent anemia recommend outpatient eval no need for formal GI inpatient consult at this time
pls call with ?s/issues/changes in clinical status
[2024-11-18 13:22] LABS: COVID-19 Antigen Positive (Negative)
[2024-11-18 13:39] LABS: HCG, Serum Qualitative Screen Negative
[2024-11-18 13:49] LABS: Iron < 20 ug/dl (37-170)
[2024-11-18 13:59] LABS: Total Iron Binding Capacity 344 ug/dl (265-497)
[2024-11-18 14:06] LABS: Vitamin D, 25-OH*** 36.6 ng/mL (30-80)
[2024-11-18 14:24] LABS: Ferritin 14.5 ng/ml (6.24-137)
[2024-11-18 14:56] LABS: Folate 8.7 ng/ml (2.76-20); Vitamin B12 290 pg/ml (239-931)
[2024-11-18] MEDS: HEPARIN 25000 UNITS/250 ML IV (16:15)
[2024-11-18] MEDS: NICODERM TRANSDERMAL 7 MG TRANSDERM (16:15)
[2024-11-18] MEDS: ROCALTROL 0.25 MCG PO (16:15)
[2024-11-18] MEDS: LEXAPRO 10 MG PO (16:15)
[2024-11-18] MEDS: SUBUTEX 4 MG SL (17:19)
[2024-11-18] MEDS: MUCINEX PO (20:02)
[2024-11-18] MEDS: NEUTRA-PHOS POWDER PACKET 250 MG PO (20:02)
[2024-11-18] MEDS: OSCAL CAL 500 1000 MG PO (21:42)
[2024-11-18] MEDS: DELTASONE 5 MG PO (21:43)
[2024-11-18] MEDS: THERAGRAN 1 TABLET PO (21:43)
[2024-11-18] MEDS: MAGNESIUM OXIDE 400 MG PO (21:43)
[2024-11-18] MEDS: VITAMIN D3 (cholecalciferol) 125 MCG PO (21:46)
[2024-11-18 23:00] LABS: APTT 44.0 Sec (23.4-35.0)
[2024-11-18 23:13] LABS: Hematocrit 24.0 % (37.0-47.0); Hemoglobin 7.5 g/dL (12.0-16.0); Mean Corp Hgb Conc. 31.3 g/dL (33.0-37.0); Mean Corpuscular Volume 85.4 fL (81.0-99.0); Platelet Count 265 10^3/uL (130-400); Red Cell Dist. Width 17.6 % (11.5-14.5)
--- NOTE | 2024-11-18 23:45 | PTCARENOTE ---
Patient's repeat hgb after two units of PRBC- 7.5 from 5.4, hct- 24. AB Rodas made aware. No new orders at this time.
[2024-11-19] VITALS (9 sets, daily range): BP systolic 102–122; BP diastolic 56–78
[2024-11-19 05:58] LABS: Hematocrit 22.5 % (37.0-47.0); Hemoglobin 7.2 g/dL (12.0-16.0); Mean Corp Hgb Conc. 32.0 g/dL (33.0-37.0); Mean Corpuscular Volume 83.6 fL (81.0-99.0); Platelet Count 217 10^3/uL (130-400); Red Cell Dist. Width 17.8 % (11.5-14.5)
[2024-11-19 06:23] LABS: APTT 65.6 Sec (23.4-35.0)
[2024-11-19 06:51] LABS: Blood Urea Nitrogen 16 mg/dl (7-17); Calcium 7.0 mg/dl (8.4-10.2); Carbon Dioxide 22 mmol/L (22-30); Chloride 111 mmol/L (98-107); Estimated Creatinine Clearance 103 ml/min; Glucose 186 mg/dl (70-99); Potassium 3.5 mmol/L (3.5-5.1); Sodium 135 mmol/L (135-145); eGFR > 60.00
[2024-11-19] MEDS: OSCAL CAL 500 1000 MG PO ×2 (09:03→21:15)
[2024-11-19] MEDS: PROTONIX 40 MG PO (09:03)
[2024-11-19] MEDS: MUCINEX 1200 MG PO (09:03)
[2024-11-19] MEDS: VITAMIN B-12 1000 MCG PO (09:03)
[2024-11-19] MEDS: VITAMIN D3 (cholecalciferol) 125 MCG PO (09:03)
[2024-11-19] MEDS: DELTASONE 10 MG PO (09:03)
[2024-11-19] MEDS: NEUTRA-PHOS POWDER PACKET 250 MG PO ×2 (09:06→21:14)
[2024-11-19] MEDS: SUBUTEX 4 MG SL ×3 (09:06→16:35)
[2024-11-19] MEDS: HEPARIN 25000 UNITS/250 ML IV (09:15)
[2024-11-19 09:29] LABS: Iron 48 ug/dl (37-170)
[2024-11-19 09:39] LABS: Total Iron Binding Capacity 317 ug/dl (265-497)
[2024-11-19 11:11] LABS: Ferritin 18.5 ng/ml (6.24-137)
[2024-11-19] MEDS: CALCIUM GLUCONATE 100 IV (11:12)
[2024-11-19] MEDS: CYANOCOBALAMIN 1000 MCG IM (11:12)
[2024-11-19 11:43] LABS: Folate 14.4 ng/ml (2.76-20); Vitamin B12 235 pg/ml (239-931)
[2024-11-19] MEDS: FERRLECIT 110 MG IV (11:51)
--- NOTE | 2024-11-19 12:01 | W.PN.HOSP.TC ---
Today's Communication/Plan
-
Monitor vitals
See plan
Transfuse another unit PRBC today
COVID-positive, no respiratory symptoms
Start IV iron
Start vitamin B12
Discussed with patient and her mother
Assessment / Plan
Assessment / Plan
General: Well Developed, Well Nourished and No Apparent Distress
HEENT: NormoCephalic, Moist mucous membranes and Atraumatic
Respiratory: Clear
Cardiac: S1/S2 and Regular Rhythm; No Murmur or Rub
GI: Soft, Non Tender, Non Distended and Normal Bowel Sounds
Musculoskeletal: (Bilateral lower extremities edema)
Neuro: AO x 3 and Nonfocal/grossly intact
Psych: Calm
Acute on chronic anemia likely multifactorial secondary to recent hemorrhoid bleed/crohn's disease, malabsorption
Iron deficiency anemia
Start IV iron, has tolerated in the past
- Hemoglobin 5.4 on admission, status post 2 unit PRBC. Hemoglobin now 7.2. Transfused another PRBC today
Patient to follow-up with hematology outpatient for iron infusion
Patient also needs to be seen by GI outpatient, this was discussed with GI here however they wanted to follow-up outpatient
-rectal exam in ED with no stool or blood in the vault
Vitamin B12 deficiency
Start vitamin B12
- 2 units of PRBCs
- continue to monitor CBC
-d/w GI, recommended GI follow up as outpatient
-patient has an GI appoint for EGD and colonoscopy.
# Acute COVID infection
COVID-positive here
No respiratory symptoms
- Continue to monitor
# Recent DVT
-hold eliquis for now, continue with heparin gtt
monitor
# Anxiety
- Escitalopram continued
#GERD
-PPI continued
#Crohn's disease
-prednisone chronically.
#Chronic hypoalbuminemia/hypocalcemia-due to underlying Crohn's disease.
- On calcium carbonate
dose of IV calcium
#Chronic bilateral lower extremity edema. She takes furosemide as needed
#History of opiate dependence/abuse -on chronic Suboxone.
Full code
I spent a total of 52 minutes with the patient or on the floor. More than 50% of this time involved counseling and coordination of care.
Anticipated Discharge: Within 24 hours
Subjective/Interval History
-
Date of Service: November 19, 2024
denies pain
Objective Data
-
Labs:
Laboratory Results
11/19/24 11/19/24
05:49 12:30
WBC 3.5 L
Hgb 7.2 L
Hct 22.5 L
Plt Count 217
APTT 65.6 H Pending
Sodium 135
Potassium 3.5
Chloride 111 H
Carbon Dioxide 22
BUN 16
Creatinine 0.5 L
Glucose 186 H
Calcium 7.0 L
Vital Signs:
Vital Signs
Temp Pulse Resp BP Pulse Ox
98.4 F 106 16 115/74 97
11/19/24 11:36 11/19/24 11:36 11/19/24 11:36 11/19/24 11:36 11/19/24 11:36
I&O
11/18/24 11/19/24 11/20/24
06:59 06:59 06:59
Intake Total 1230 / 1230
Balance 1230 / 1230
[2024-11-19 13:10] LABS: APTT 53.6 Sec (23.4-35.0)
--- NOTE | 2024-11-19 15:59 | CM ---
Alert awake oriented patient who lives with her parents Shira and Toni and 2 children 15yo and 19 yo. in a 2 story home with 2 steps to enter and 10 steps to bed/bathroom. She is independent in activates of daily living.She does drive .She is here
with Covid on isolation. Offered VN she declined need.
No VN in past . No SNF hx
Pharmacy [facility]
PCP Dr Chavarria
PLAN Home with no needs
[2024-11-19] MEDS: NICODERM TRANSDERMAL 7 MG TRANSDERM (16:35)
[2024-11-19] MEDS: ROCALTROL 0.25 MCG PO (16:35)
[2024-11-19] MEDS: LEXAPRO 10 MG PO (16:35)
[2024-11-19] MEDS: MUCINEX PO ×2 (21:13→21:27)
[2024-11-19] MEDS: THERAGRAN 1 TABLET PO (21:14)
[2024-11-19] MEDS: MAGNESIUM OXIDE 400 MG PO (21:14)
[2024-11-19] MEDS: DELTASONE 5 MG PO (21:14)
[2024-11-19 21:28] LABS: APTT 155.0 Sec (23.4-35.0)
[2024-11-20] MEDS: HEPARIN 25000 UNITS/250 ML IV ×2 (00:32→15:59)
[2024-11-20 02:49] VITALS: BP 94/65
[2024-11-20 05:59] LABS: Hematocrit 24.7 % (37.0-47.0); Hemoglobin 7.8 g/dL (12.0-16.0); Mean Corp Hgb Conc. 31.6 g/dL (33.0-37.0); Mean Corpuscular Volume 82.6 fL (81.0-99.0); Platelet Count 239 10^3/uL (130-400); Red Cell Dist. Width 17.7 % (11.5-14.5)
[2024-11-20 06:02] LABS: APTT 92.4 Sec (23.4-35.0)
[2024-11-20 06:21] LABS: Blood Urea Nitrogen 13 mg/dl (7-17); Calcium 7.3 mg/dl (8.4-10.2); Carbon Dioxide 22 mmol/L (22-30); Chloride 113 mmol/L (98-107); Estimated Creatinine Clearance 103 ml/min; Glucose 176 mg/dl (70-99); Potassium 3.6 mmol/L (3.5-5.1); Sodium 137 mmol/L (135-145); eGFR > 60.00
[2024-11-20 07:30] VITALS: BP 105/59
[2024-11-20] MEDS: VITAMIN B-12 1000 MCG PO (08:53)
[2024-11-20] MEDS: MUCINEX 1200 MG PO (08:53)
[2024-11-20] MEDS: CYANOCOBALAMIN 1000 MCG IM (08:53)
[2024-11-20] MEDS: SUBUTEX 4 MG SL ×3 (08:53→15:57)
[2024-11-20] MEDS: DELTASONE 10 MG PO (08:54)
[2024-11-20] MEDS: PROTONIX 40 MG PO (08:54)
[2024-11-20] MEDS: VITAMIN D3 (cholecalciferol) 125 MCG PO (08:54)
[2024-11-20] MEDS: OSCAL CAL 500 1000 MG PO ×2 (08:54→21:11)
[2024-11-20] MEDS: NEUTRA-PHOS POWDER PACKET 250 MG PO ×2 (09:15→21:11)
[2024-11-20 11:30] VITALS: BP 112/66
--- NOTE | 2024-11-20 12:08 | W.PN.HOSP.TC ---
Today's Communication/Plan
-
monitor vitals
see plan
Repeat H&H later today
Continue with IV iron
cw IV heparin
Assessment / Plan
Assessment / Plan
General: Well Developed, Well Nourished and No Apparent Distress
HEENT: NormoCephalic, Moist mucous membranes and Atraumatic
Respiratory: Clear
Cardiac: S1/S2 and Regular Rhythm; No Murmur or Rub
GI: Soft, Non Tender, Non Distended and Normal Bowel Sounds
Musculoskeletal: (Bilateral lower extremities edema)
Neuro: AO x 3 and Nonfocal/grossly intact
Psych: Calm
Acute on chronic anemia likely multifactorial secondary to recent hemorrhoid bleed/crohn's disease, malabsorption
Iron deficiency anemia
Started IV iron, has tolerated in the past
- Hemoglobin 5.4 on admission, status post 3 unit PRBC. Hemoglobin now 7.8. Repeat hemoglobin later today
Patient to follow-up with hematology outpatient for iron infusion
Patient also needs to be seen by GI outpatient, this was discussed with GI here however they wanted to follow-up outpatient
-rectal exam in ED with no stool or blood in the vault
- continue to monitor CBC
-d/w GI, recommended GI follow up as outpatient
-patient has an GI appoint for EGD and colonoscopy.
Hematology evaluation if symptoms do not improve
Vitamin B12 deficiency
Started vitamin B12
# Acute COVID infection
COVID-positive here
No respiratory symptoms
- Continue to monitor
# Recent DVT
-hold eliquis for now, continue with heparin gtt
monitor
# Anxiety
- Escitalopram continued
#GERD
-PPI continued
#Crohn's disease
-prednisone chronically.
#Chronic hypoalbuminemia/hypocalcemia-due to underlying Crohn's disease.
- On calcium carbonate
#Chronic bilateral lower extremity edema. She takes furosemide as needed
#History of opiate dependence/abuse -on chronic Suboxone.
Full code
I spent a total of 51 minutes with the patient or on the floor. More than 50% of this time involved counseling and coordination of care.
Anticipated Discharge: Within 24 hours
Subjective/Interval History
-
Date of Service: November 20, 2024
denies sob
Objective Data
-
Labs:
Laboratory Results
11/20/24 11/20/24 11/20/24
05:27 11:28 13:00
WBC 3.8 L
Hgb 7.8 L Pending
Hct 24.7 L Pending
Plt Count 239
APTT 92.4 H Pending
Sodium 137
Potassium 3.6
Chloride 113 H
Carbon Dioxide 22
BUN 13
Creatinine 0.4 L
Glucose 176 H
Calcium 7.3 L
Vital Signs:
Vital Signs
Temp Pulse Resp BP Pulse Ox
98.2 F 86 16 105/59 96
11/20/24 07:30 11/20/24 07:30 11/20/24 07:30 11/20/24 07:30 11/20/24 07:30
I&O
11/19/24 11/20/24 11/21/24
06:59 06:59 06:59
Intake Total 1230 / 1230 2029
Balance 1230 / 1230 2029
[2024-11-20 12:11] LABS: APTT 123.5 Sec (23.4-35.0)
[2024-11-20] MEDS: PREPARATION H OINTMENT 1 APPLIC RECTAL (12:43)
[2024-11-20 13:32] LABS: Hematocrit 26.3 % (37.0-47.0); Hemoglobin 8.4 g/dL (12.0-16.0)
[2024-11-20] MEDS: FERRLECIT 110 MG IV (14:42)
--- NOTE | 2024-11-20 15:23 | CM ---
Pt had Iron infusion and needed blood transfusion.
Monitoring H &H.
Maintained on Heparin gtt.
Dx with Covid.
Room air Pox 97%.
PLAN Home no needs
[2024-11-20] MEDS: NICODERM TRANSDERMAL 7 MG TRANSDERM (15:57)
[2024-11-20 16:00] VITALS: BP 117/76
[2024-11-20] MEDS: LEXAPRO 10 MG PO (17:43)
[2024-11-20] MEDS: ROCALTROL 0.25 MCG PO (17:43)
[2024-11-20 18:58] LABS: APTT 111.6 Sec (23.4-35.0)
[2024-11-20 19:40] VITALS: BP 130/68
[2024-11-20] MEDS: MUCINEX PO (21:06)
[2024-11-20] MEDS: MAGNESIUM OXIDE 400 MG PO (21:10)
[2024-11-20] MEDS: DELTASONE 5 MG PO (21:10)
[2024-11-20] MEDS: THERAGRAN 1 TABLET PO (21:10)
[2024-11-20 23:24] VITALS: BP 109/70
[2024-11-20 23:26] LABS: Transferrin 231 mg/dL (200-360)
[2024-11-21 02:28] LABS: APTT 64.2 Sec (23.4-35.0)
[2024-11-21 03:00] VITALS: BP 107/69
[2024-11-21] MEDS: SUBUTEX 4 MG SL ×2 (07:45→11:38)
[2024-11-21] MEDS: PROTONIX 40 MG PO (07:45)
[2024-11-21] MEDS: DELTASONE 10 MG PO (07:45)
[2024-11-21] MEDS: VITAMIN D3 (cholecalciferol) 125 MCG PO (07:45)
[2024-11-21] MEDS: OSCAL CAL 500 1000 MG PO (07:46)
[2024-11-21] MEDS: VITAMIN B-12 1000 MCG PO (07:46)
[2024-11-21 07:47] VITALS: BP 107/67
[2024-11-21] MEDS: MUCINEX PO (07:50)
[2024-11-21] MEDS: CYANOCOBALAMIN IM (08:25)
[2024-11-21] MEDS: NEUTRA-PHOS POWDER PACKET 250 MG PO (09:21)
[2024-11-21 09:48] LABS: Hematocrit 28.4 % (37.0-47.0); Hemoglobin 8.4 g/dL (12.0-16.0); Mean Corp Hgb Conc. 29.6 g/dL (33.0-37.0); Mean Corpuscular Volume 89.9 fL (81.0-99.0); Platelet Count 274 10^3/uL (130-400); Red Cell Dist. Width 18.6 % (11.5-14.5)
[2024-11-21 09:58] LABS: APTT 69.3 Sec (23.4-35.0)
[2024-11-21] MEDS: ELIQUIS 5 MG PO (10:16)
[2024-11-21 10:22] LABS: Blood Urea Nitrogen 14 mg/dl (7-17); Calcium 7.4 mg/dl (8.4-10.2); Carbon Dioxide 24 mmol/L (22-30); Chloride 112 mmol/L (98-107); Estimated Creatinine Clearance 103 ml/min; Glucose 93 mg/dl (70-99); Potassium 4.2 mmol/L (3.5-5.1); Sodium 135 mmol/L (135-145); eGFR > 60.00
--- NOTE | 2024-11-21 10:32 | W.PN.HOSP.TC ---
Today's Communication/Plan
-
monitor vitals
see plan
hgb 8.4 today
dc today with outpatient f/u
She already has iron infusion set up outpatient
Time of discharge 38 minutes
Assessment / Plan
Assessment / Plan
General: Well Developed, Well Nourished and No Apparent Distress
HEENT: NormoCephalic, Moist mucous membranes and Atraumatic
Respiratory: Clear
Cardiac: S1/S2 and Regular Rhythm; No Murmur or Rub
GI: Soft, Non Tender, Non Distended and Normal Bowel Sounds
Musculoskeletal: (Bilateral lower extremities edema)
Neuro: AO x 3 and Nonfocal/grossly intact
Psych: Calm
Acute on chronic anemia likely multifactorial secondary to recent hemorrhoid bleed/crohn's disease, malabsorption
Iron deficiency anemia
Started IV iron, has tolerated in the past
- Hemoglobin 5.4 on admission, status post 3 unit PRBC. Hemoglobin now 8.4; follow up outpatient. dc today. She is already scheduled for outpatient iron infusion
Patient to follow-up with hematology outpatient for iron infusion
Patient also needs to be seen by GI outpatient, this was discussed with GI here however they wanted to follow-up outpatient
-rectal exam in ED with no stool or blood in the vault
- continue to monitor CBC
-d/w GI, recommended GI follow up as outpatient
-patient has an GI appoint for EGD and colonoscopy.
Hematology evaluation if symptoms do not improve
Vitamin B12 deficiency
Started vitamin B12
# Acute COVID infection
COVID-positive here
No respiratory symptoms
- Continue to monitor
# Recent DVT
DC further heparin drip, start Eliquis
monitor
# Anxiety
- Escitalopram continued
#GERD
-PPI continued
#Crohn's disease
-prednisone chronically.
#Chronic hypoalbuminemia/hypocalcemia-due to underlying Crohn's disease.
- On calcium carbonate
#Chronic bilateral lower extremity edema. She takes furosemide as needed
#History of opiate dependence/abuse -on chronic Suboxone.
Full code
Anticipated Discharge: Today
Subjective/Interval History
-
Date of Service: November 21, 2024
denies pain
Objective Data
-
Labs:
Laboratory Results
11/21/24 11/21/24 11/21/24
01:19 02:10 08:37
WBC
Hgb
Hct
Plt Count
APTT Cancelled 64.2 H Cancelled
Sodium
Potassium
Chloride
Carbon Dioxide
BUN
Creatinine
Glucose
Calcium
11/21/24
09:04
WBC 3.3 L
Hgb 8.4 L
Hct 28.4 L
Plt Count 274
APTT 69.3 H
Sodium 135
Potassium 4.2
Chloride 112 H
Carbon Dioxide 24
BUN 14
Creatinine 0.5 L
Glucose 93
Calcium 7.4 L
Vital Signs:
Vital Signs
Temp Pulse Resp BP Pulse Ox
97.8 F 88 17 107/67 96
11/21/24 07:47 11/21/24 07:47 11/21/24 07:47 11/21/24 07:47 11/21/24 07:47
I&O
11/20/24 11/21/24 11/22/24
06:59 06:59 06:59
Intake Total 2029 1320 / 1320
Balance 2029 1320 / 1320
--- NOTE | 2024-11-21 10:36 | W.DCSUMMARY ---
Discharge Summary
Discharge Data
Date of Admission: 11/18/24
Date of Discharge: 11/21/24
-
Pending Results: No
Hospital Course
39-year-old female with past medical history of crohn's disease, hemorrhoids, iron deficiency anemia, vitamin B12 deficiency, recent DVT, anxiety, GERD, chronic hypoalbuminemia, hypocalcemia, chronic bilateral lower extremity edema, opioid
dependence came to the hospital with acute on chronic anemia which was likely thought was multifactorial secondary to recent hemorrhoidal bleed along with crohn's disease and malabsorption. Patient had iron deficiency and was treated with IV iron.
Patient hemoglobin was 5.4 admission and required multiple blood transfusion. On discharge patient hemoglobin improved to 8.4 without any bleeding. GI and colorectal surgery recommended patient to follow-up with them outpatient. While she was in
the hospital she was also found COVID-positive. However she did not had any respiratory symptoms so did not require any COVID treatment. Once her symptoms continue to improve, she was then discharged home with instructions to follow-up with all
her physicians outpatient.
Discharge Plan
-
Patient Disposition: Home (Routine Discharge)
Discharge Diagnosis/Procedures: Acute on chronic anemia likely multifactorial secondary to recent hemorrhoid bleed/crohn's disease, malabsorption
Iron deficiency anemia
Vitamin B12 deficiency
COVID positive
Condition: Fair
Diet: As tolerated
Activity: As tolerated
Driving Restrictions: As prior to admission
Bathing Restrictions: None
Blood Work: CBC next week with primary care provider
Activity Restrictions/Additional Instructions:
Follow-up with GI, colorectal and hematology outpatient
Referrals:
Petrona Chavarria MD [Family Provider, Family Practice] - in less than 1 week
Prescriptions:
Continued
pantoprazole 40 MG tablet,delayed release (DR/EC)
40 mg PO DAILY
escitalopram oxalate 10 MG tablet
10 mg PO QPM
multivitamin with folic acid [Tab-A-Anna] 1 TABLET tablet
1 tab PO HS
cyanocobalamin (vitamin B-12) 1,000 mcg/mL Solution
1,000 mcg IM Q2W
buprenorphine-naloxone 8-2 mg Tablet, Sublingual
0.5 tab SUBLINGUAL TID
Patient Comments:
11/18/24- no pdmp evidence to show dose increase patient stated she takes this 1.5 tablet tid, pdmp last filled 10/24/24 #45
prednisone 5 mg tablet
6 mg PO HS
calcium carbonate 600 mg calcium (1,500 mg) Tablet
1,200 mg PO BID
potassium 99 mg Tablet
99 mg PO BID
nicotine 7 mg/24 hr Patch 24 Hour
1 patch TRANSDERMAL Q24H
magnesium oxide 500 mg Capsule
500 mg PO HS
cholecalciferol (vitamin D3) [Vitamin D3] 125 mcg (5,000 unit) Tablet
125 mcg PO DAILY
furosemide 20 mg tablet
20 mg PO DAILYPRN PRN (Reason: swelling from excess fluid)
cyanocobalamin (vitamin B-12) 1,000 mcg capsule
1,000 mcg PO DAILY Qty: 30 0RF
prednisone 10 mg Tablet
8 mg PO DAILY
ondansetron 4 mg tablet,disintegrating
4 mg translingual QIDPRN PRN (Reason: nausea)
calcitriol 0.25 mcg capsule
0.25 mcg PO QPM
levonorgestrel-ethinyl estrad 0.15 mg-30 mcg (91) tablets,dose pack,3 month
1 tab PO QPM
Eliquis 5 mg tablet
5 mg PO BID Qty: 60 0RF
Held
ibuprofen 200 mg Tablet
400 mg PO BIDPRN PRN (Reason: mild pain)
Hold Instructions: Until anemia improves
Discharge Orders:
Discharge Patient (As Directed); Ordered 11/21/24
Ordered By: Joselo Joshi
Discharge Date and Time
Discharge Date/Time: 11/21/24 12:21
Print Language: WOLOF
[2024-11-21 11:31] VITALS: BP 115/66
--- NOTE | 2024-11-21 12:14 | CM ---
MD entered order for discharge.
Pt has been set up for out patient Iron infusion first visit is 11/26/24.
Pt said she was ready for discharge to home.
IMM reviewed with her .She said she will drive herself home.
Pt verbalized financial difficulty with outpatient cost for infusion.
Called [facility] Spoke with Satnam she said she will have SW Preeti [phone] call patient.
Pt informed of above and pt given SW number.
Offered VN she declined need.
PLAN Home no needs
== END 2024-11-21 12:21 | disposition home or self-care (01) | DRG 811 ==
LOC: 3 WEST ACU 13:03
PROVIDERS: Registered Nurse; Student in an Organized Health Care Education/Training Program; ADMITTING PHYSICIAN Hospitalist; ATTENDING PHYSICIAN Internal Medicine; EMERGENCY PHYSICIAN Emergency Medicine; FAMILY PHYSICIAN Family Medicine
PROC: 30233N1 Transfusion of Nonautologous Red Blood Cells into Peripheral Vein, Percutaneous Approach (ICD-10-PCS; 2024-11-18)
DX: D50.0 Iron deficiency anemia secondary to blood loss (chronic) (principal); U07.1 COVID-19; F11.20 Opioid dependence, uncomplicated; K50.912 Crohn's disease, unspecified, with intestinal obstruction; K90.9 Intestinal malabsorption, unspecified; Z87.891 Personal history of nicotine dependence; F41.9 Anxiety disorder, unspecified; K21.9 Gastro-esophageal reflux disease without esophagitis; K64.4 Residual hemorrhoidal skin tags; Z79.01 Long term (current) use of anticoagulants
CPT/HCPCS: 80048; 80053; 82306; 82330; 82607; 82728; 82746; 83540; 83550; 84466; 84703; 85014; 85018; 85025; 85027; 85045; 85730; 86850; 86900; 86901; 86920; 86922; 87811; 99291; J2916; P9016

== ENCOUNTER 2025-01-01 08:32 | Outpatient (RCR) | payer MEDICARE, MEDICAID, SELFPAY ==
[2025-01-01 09:26] VITALS: BP 109/55
[2025-01-01 09:45] VITALS: BP 101/60
[2025-01-01 11:41] VITALS: BP 108/60
== END 2025-01-12 23:59 | disposition home or self-care (01) ==
LOC: OID 08:32
PROVIDERS: ATTENDING PHYSICIAN Internal Medicine Hematology & Oncology; FAMILY PHYSICIAN Family Medicine
DX: D50.0 Iron deficiency anemia secondary to blood loss (chronic) (principal); K50.90 Crohn's disease, unspecified, without complications; D51.9 Vitamin B12 deficiency anemia, unspecified; E55.9 Vitamin D deficiency, unspecified; E83.51 Hypocalcemia; E87.8 Other disorders of electrolyte and fluid balance, not elsewhere classified
CPT/HCPCS: 36415; 36430; 86850; 86900; 86901; 86920; 86922; P9016

== ENCOUNTER 2025-01-22 17:34 | Inpatient (IN) | payer MEDICARE, MEDICAID, SELFPAY ==
[2025-01-22] VITALS (16 sets, daily range): BP systolic 92–124; BP diastolic 56–79; BMI 23.6
[2025-01-22 13:38] LABS: Hematocrit 24.1 % (37.0-47.0); Hemoglobin 6.5 g/dL (12.0-16.0); Mean Corp Hgb Conc. 27.0 g/dL (33.0-37.0); Mean Corpuscular Volume 81.7 fL (81.0-99.0); Nucleated Red Blood Cells % 0.8 %; Platelet Count 384 10^3/uL (130-400); Red Cell Dist. Width 18.5 % (11.5-14.5)
[2025-01-22 14:00] LABS: Anisocytosis 1+; Normal RBC Morphology No
[2025-01-22 14:01] LABS: Hypochromasia 1+; Ovalocytes 1+; Polychromasia 1+
[2025-01-22 14:19] LABS: ALT (SGPT) 13 U/L (0-35); AST (SGOT) 13 U/L (14-36); Albumin 2.5 g/dl (3.5-5.0); Alkaline Phosphatase 45 U/L (38-126); Blood Urea Nitrogen 20 mg/dl (7-17); Calcium 8.2 mg/dl (8.4-10.2); Carbon Dioxide 20 mmol/L (22-30); Chloride 110 mmol/L (98-107); Glucose 96 mg/dl (70-99); Potassium 3.5 mmol/L (3.5-5.1); Sodium 133 mmol/L (135-145); Total Protein 4.7 g/dl (6.3-8.2); eGFR > 60.00
[2025-01-22 14:22] LABS: HCG, Serum Qualitative Screen Negative
--- NOTE | 2025-01-22 15:45 | ED.GENMED ---
History of Present Illness
<Rosalind Rader MD, Resident - Last Filed: 01/22/25 16:41>
General
Chief Complaint: Abnormal Lab Value
Source: patient
Exam Limitations: none
Time Seen by Provider: 01/22/25 15:44
Nursing documentation reviewed up to this point in time: agreed with
History of Present Illness
History of Present Illness:
39-year-old F with history of Crohn's disease, hemorrhoids, iron/B12 deficiency anemia, left upper extremity DVT, chronic BROOK, presents from home following abnormal & chronic hypocalcemia who presents from home with abnormal hemoglobin and symptoms
of fatigue, dyspnea, headache.
Patient states that she saw her laundry machine operator (Dr. Richmond at [facility]) and got blood work done on Monday; she received a call last night from laundry machine operator that she should come to the hospital due to low hemoglobin (6.5). Patient states that she
has been feeling weak/fatigued at home for the past couple days, she has also developed a frontal bilateral headache. Denies any change in vision or fever. Took a Motrin yesterday for pain. Also states that she has been feeling a bit more dyspneic
than usual for the last few days. After her admission in November (see below), she did follow-up with her meat carrier and colorectal surgeon who are at [place]. Abdominal MRI demonstrated 5 areas of inflammation and strictures thought to
be source of occult bleed. She has surgery scheduled with her colorectal surgeon on March 04. States that she sees slight blood in her stool about once per week. Denies any nausea/vomiting, abdominal pain, cough, orthopnea. States that her
daughter at home has mono. States that her legs have been slightly more swollen than her usual baseline. Patient is on Eliquis, Tremfya (recently started), and prednisone.
Was discharged from on 11/21/24:
'39-year-old female with past medical history of crohn's disease, hemorrhoids, iron deficiency anemia, vitamin B12 deficiency, recent DVT, anxiety, GERD, chronic hypoalbuminemia, hypocalcemia, chronic bilateral lower extremity edema, opioid
dependence came to the hospital with acute on chronic anemia which was likely thought was multifactorial secondary to recent hemorrhoidal bleed along with crohn's disease and malabsorption. Patient had iron deficiency and was treated with IV iron.
Patient hemoglobin was 5.4 admission and required multiple blood transfusion. On discharge patient hemoglobin improved to 8.4 without any bleeding. GI and colorectal surgery recommended patient to follow-up with them outpatient. While she was in
the hospital she was also found COVID-positive. However she did not had any respiratory symptoms so did not require any COVID treatment. Once her symptoms continue to improve, she was then discharged home with instructions to follow-up with all her
physicians outpatient.'
Past History
<Rosalind Rader MD, Resident - Last Filed: 01/22/25 16:41>
Past History
ED Past Medical History: Other (crohns, chronic anemia, narcotic abuse) and Other (Previous seizure from narcotic as well as from Wellbutrin withdrawal, Crohn's disease, anemia, previous small bowel obstruction,)
ED Past Surgical History: Appendectomy, Bowel resection ( X5 due to Crohn's), Gynecological and Other (Hernia repair X2)
Social History
Tobacco: Former smoker
Alcohol: None
Drug: Former user (on suboxone)
Personal: Single
Living: with family
Employment: Not employed
Family History
Family History: Other (Crohn's disease)
Review of Systems
<Rosalind Rader MD, Resident - Last Filed: 01/22/25 16:41>
Review of Systems
All Other Systems: ROS reviewed and negative except as documented in HPI and ROS
Constitutional: Reports fatigue
EENT: Reports no symptoms
Respiratory: Reports trouble breathing
Cardiac: Reports no symptoms
ABD/GI: Reports bloody stools (1 time per week)
: Reports no symptoms
Musculoskeletal: Reports no symptoms
Skin: Reports no symptoms
Neurological: Reports headache and weakness
Psychiatric: Reports no symptoms
Phy Exam
<Rosalind Rader MD, Resident - Last Filed: 01/22/25 16:41>
General Physical Exam
General Presentation: mild distress
General age: appears stated age
General Skin: dry and pale
General Habitus: normal
General Mental: alert
Eye Exam
Eye Exam: other (Pale conjunctiva)
Cardiovascular Exam
Cardiovascular Exam: regular rate/rhythm and other (2+ bilateral lower extremity pitting edema to the knees)
Heart Sounds: normal
Pulmonary Exam
Pulmonary Exam: lungs clear and no respiratory distress
Gastrointestinal Exam
Gastrointestinal Exam: non tender, soft and non distended
Neurological Exam
Neurological Exam: alert
Musculoskeletal Exam
Musculoskeletal Exam: edema (2+ pitting edema bilateral lower extremities to the knees)
Skin Exam
Skin Exam: pallor
Psychiatric Exam
Psychiatric Exam: normal mood/affect
Course
<Rosalind Rader MD, Resident - Last Filed: 01/22/25 16:41>
Orders/Labs/Results
Orders:
Orders
01/22/25 13:07
Electrocardiogram (*1) Urgent
Reason for Study: Other
Other Reason for Exam: low hgb
Test Result ONCE
01/22/25 13:08
EKG- Treatment ONCE
01/22/25 13:13
Type+Screen Urgent
Complete Blood Count/With Diff Urgent
Comprehensive Metabolic Panel Urgent
HCG, Serum Qualitative Screen Urgent
01/22/25 16:25
Blood Bank Products [* Blood Bank Products] Urgent
Blood Bank Products: *Packed RBC Leuko (PRBC's
Quantity: 2 U
Transfuse Today: Yes
Reason: Bleeding
01/22/25 18:00
H&H Q6H
Abnormal Lab Results
01/22/25
13:13
RBC 2.95 L 10^6/uL
(4.20-5.40)
Hgb 6.5 L* g/dL
(12.0-16.0)
Hct 24.1 L %
(37.0-47.0)
MCH 22.0 L pg
(27.0-31.0)
MCHC 27.0 L g/dL
(33.0-37.0)
RDW 18.5 H %
(11.5-14.5)
Abs Immat Gran (auto) 0.1 H 10^3/uL
(0-0.05)
Absolute Lymphs (auto) 0.3 L 10^3/uL
(1.2-3.4)
Immature Gran % 1.0 H %
(0-0.5)
Neutrophils % 80.8 H %
(42.2-75.2)
Lymphocytes % 6.1 L %
(20.5-51.1)
Monocytes % 10.0 H %
(1.7-9.3)
Sodium 133 L mmol/L
(135-145)
Chloride 110 H mmol/L
(98-107)
Carbon Dioxide 20 L mmol/L
(22-30)
BUN 20 H mg/dl
(7-17)
Calcium 8.2 L mg/dl
(8.4-10.2)
Total Bilirubin 0.1 L mg/dl
(0.2-1.3)
AST 13 L U/L
(14-36)
Total Protein 4.7 L g/dl
(6.3-8.2)
Albumin 2.5 L g/dl
(3.5-5.0)
01/22/25 22:30
01/22/25 13:13
Vital Signs
Initial and Last Documented VS:
Initial Vital Signs
Temp Pulse Resp BP Pulse Ox
98.1 F 105 16 122/74 98
01/22/25 13:04 01/22/25 13:04 01/22/25 13:04 01/22/25 13:04 01/22/25 13:04
Last Documented Vital Signs
Temp Pulse Resp BP Pulse Ox
98.1 F 105 16 111/72 95
01/22/25 13:04 01/22/25 15:15 01/22/25 15:15 01/22/25 15:09 01/22/25 15:46
<Jerome Ross, DO - Last Filed: 01/22/25 16:33>
Orders/Labs/Results
Orders:
Orders
01/22/25 13:07
Electrocardiogram (*1) Urgent
Reason for Study: Other
Other Reason for Exam: low hgb
Test Result ONCE
01/22/25 13:08
EKG- Treatment ONCE
01/22/25 13:13
Type+Screen Urgent
Complete Blood Count/With Diff Urgent
Comprehensive Metabolic Panel Urgent
HCG, Serum Qualitative Screen Urgent
01/22/25 16:25
Blood Bank Products [* Blood Bank Products] Urgent
Blood Bank Products: *Packed RBC Leuko (PRBC's
Quantity: 2 U
Transfuse Today: Yes
Reason: Bleeding
01/22/25 18:00
H&H Q6H
Abnormal Lab Results
01/22/25
13:13
RBC 2.95 L 10^6/uL
(4.20-5.40)
Hgb 6.5 L* g/dL
(12.0-16.0)
Hct 24.1 L %
(37.0-47.0)
MCH 22.0 L pg
(27.0-31.0)
MCHC 27.0 L g/dL
(33.0-37.0)
RDW 18.5 H %
(11.5-14.5)
Abs Immat Gran (auto) 0.1 H 10^3/uL
(0-0.05)
Absolute Lymphs (auto) 0.3 L 10^3/uL
(1.2-3.4)
Immature Gran % 1.0 H %
(0-0.5)
Neutrophils % 80.8 H %
(42.2-75.2)
Lymphocytes % 6.1 L %
(20.5-51.1)
Monocytes % 10.0 H %
(1.7-9.3)
Sodium 133 L mmol/L
(135-145)
Chloride 110 H mmol/L
(98-107)
Carbon Dioxide 20 L mmol/L
(22-30)
BUN 20 H mg/dl
(7-17)
Calcium 8.2 L mg/dl
(8.4-10.2)
Total Bilirubin 0.1 L mg/dl
(0.2-1.3)
AST 13 L U/L
(14-36)
Total Protein 4.7 L g/dl
(6.3-8.2)
Albumin 2.5 L g/dl
(3.5-5.0)
01/22/25 22:30
01/22/25 13:13
Vital Signs
Initial and Last Documented VS:
Initial Vital Signs
Temp Pulse Resp BP Pulse Ox
98.1 F 105 16 122/74 98
01/22/25 13:04 01/22/25 13:04 01/22/25 13:04 01/22/25 13:04 01/22/25 13:04
Last Documented Vital Signs
Temp Pulse Resp BP Pulse Ox
98.1 F 105 16 111/72 95
01/22/25 13:04 01/22/25 15:15 01/22/25 15:15 01/22/25 15:09 01/22/25 15:46
<Rosalind Rader MD, Resident - Last Filed: 01/22/25 16:41>
MDM/Problems Addressed
Differential Diagnosis Includes:
Acute on chronic blood loss anemia in the setting of known sources of lower GI bleed (patient with history of Crohn's, surgery scheduled on March 04 to address colonic stricturing and areas of inflammation; patient endorsing bloody stools 1 time
per week)
Potentially exacerbated by NSAID use in the setting of headache
No other sources of bleed identified (no hematemesis, no hemoptysis)
MDM/Problems Addressed:
- CBC, CMP
- EKG
- Type & screen
- 2U pRBC transfusion
- Serial H&H
- Tylenol for ARCHIBALD
- Plan for admission
<Rosalind Rader MD, Resident - Last Filed: 01/22/25 16:41>
*Pulse Oximetry
SaO2: 95
Oxygen Mode of Delivery: Room air
Patient hypoxic: no
*Critical Care Note
Total Time (30-74mins, 75-104mins- exclusive of procedures): Not Applicable
<Rosalind Rader MD, Resident - Last Filed: 01/22/25 16:41>
Update Note
Update Note:
4:30pm
Patient consented for blood products
Discussed plan for admission
ED Attending Note
<Rosalind Rader MD, Resident - Last Filed: 01/22/25 16:41>
-
Portions of this chart may have been created with voice recognition software.� Occasional wrong word or��sound alike� substitutions may have occurred due to the inherent limitations of voice recognition software.
<Jeroem Ross, DO - Last Filed: 01/22/25 16:33>
ED Attending Note
Patient seen and examined by attending physician: Yes
I performed a history and physical exam of patient and discussed management with resident, I reviewed resident's note and agree with documented findings and plan of care.: Yes
ED Attending Note:
I have seen and evaluated the patient with a [id number] encounter. I have spoken to the resident and involved in the medical history, the physical exam, medical decision making.
Evaluation and management service: agree unless noted differently below.
Results interpretation: agree unless noted differently below.
Focused HPI: 39-year-old female with a history of Crohn's disease is presenting with low hemoglobin. Outpatient blood work showed hemoglobin less than 7. She was sent in for a blood transfusion. She has been receiving outpatient blood
transfusions for chronic anemia. She is on Eliquis for DVT in her left arm and left leg. She states she notices bright blood about once a week. She denies black stools. Patient unable to tolerate p.o. iron but has received outpatient iron
transfusions. She is pending another bowel resection by colorectal surgery
Physical exam: Mildly pale. Abdomen soft and nontender. Pitting edema noted to both legs which has been getting worse per patient
Medical Decision Making: Patient has evidence of symptomatic anemia. The source is clear that is likely GI from her known Crohn's disease. She is on prednisone 5 mg twice daily. Will admit for symptomatic anemia and will have colorectal evaluate
Discharge Plan
Departure
Patient Disposition: Admit
Date of Disposition: 01/22/25
Time of Disposition: 16:40
Admit to doctor: Amanda Acosta
Presentation/result/management discussed w/ accepting MD/DO: Hospitalist
Patient with high blood pressure during this ER visit?: No
Condition: Fair
Covid-19: Not Applicable
Discharge Problem:
Acute on chronic blood loss anemia, Crohn disease
Prescriptions:
No Action
pantoprazole 40 MG tablet,delayed release (DR/EC)
40 mg PO DAILY
escitalopram oxalate 10 MG tablet
10 mg PO QPM
multivitamin with folic acid [Tab-A-Anna] 1 TABLET tablet
1 tab PO HS
buprenorphine-naloxone 8-2 mg Tablet, Sublingual
0.5 tab SUBLINGUAL TID
Patient Comments:
11/18/24- no pdmp evidence to show dose increase patient stated she takes this 1.5 tablet tid, pdmp last filled 10/24/24 #45
prednisone 5 mg tablet
6 mg PO HS
calcium carbonate 600 mg calcium (1,500 mg) Tablet
1,200 mg PO BID
potassium 99 mg Tablet
99 mg PO BID
nicotine 7 mg/24 hr Patch 24 Hour
1 patch TRANSDERMAL Q24H
magnesium oxide 500 mg Capsule
500 mg PO HS
cholecalciferol (vitamin D3) [Vitamin D3] 125 mcg (5,000 unit) Tablet
125 mcg PO DAILY
cyanocobalamin (vitamin B-12) 1,000 mcg capsule
1,000 mcg PO DAILY Qty: 30 0RF
prednisone 10 mg Tablet
8 mg PO DAILY
ibuprofen 200 mg Tablet
400 mg PO BIDPRN PRN (Reason: mild pain)
calcitriol 0.25 mcg capsule
0.25 mcg PO QPM
levonorgestrel-ethinyl estrad 0.15 mg-30 mcg (91) tablets,dose pack,3 month
1 tab PO QPM
Eliquis 5 mg tablet
5 mg PO BID Qty: 60 0RF
Referrals:
Petrona Chavarria MD [Family Provider, Family Practice]
Interventions
Interventions:
*Risk Screen - Suicide Last Done: 01/22/25 13:04
*General Assessment Last Done: 01/22/25 13:04
*Neglect/Abuse Screening Last Done: 01/22/25 13:04
*ED COVID-19 Vaccine History Last Done: 01/22/25 13:04
*ED Influenza Vaccine History Last Done: 01/22/25 13:04
Discharge Date and Time
Print Language: DJIBOUTIAN
[2025-01-22] MEDS: TYLENOL 650 MG PO (16:42)
--- NOTE | 2025-01-22 17:07 | HPS.HSE ---
Family Physician
-
Family Physician: Petrona Chavarria
Chief Complaint
-
Anemia
History of Present Illness
39-year-old F with history of Crohn's disease, hemorrhoids, iron/B12 deficiency anemia, left upper extremity DVT, chronic BROOK on eliis, who presents from home with abnormal hemoglobin and symptoms of fatigue, dyspnea, headache. Patient states
that she was seen by her engine monitor and got her blood work done on Monday, she received a call from the engine monitor last night and they recommended to come to the ED because of low hemoglobin of 6.5. Patient states that she started to feel
weak, fatigue at home for the past couple days and also had severe by a lateral frontal headache. She denies hematochezia hematuria melena. She she notes of having blood in the stool a week ago. She notes that she had an abdominal MRI which
demonstrated 5 areas of inflammation and strictures thought to be a source of occult bleeding. She has surgery scheduled with her colorectal surgeon at [place] on March 04. She states that she sees slight blood in her stool about once per
week. She was recently admitted on with similar issue as above.
Medical History
Past Medical History
Past Medical History: Reports Other (Crohn's disease, hemorrhoids, iron/B12 deficiency anemia, left upper extremity DVT, chronic BROOK)
Past Surgical History: Reports Other
Social History
Tobacco: Non-smoker
Alcohol: None
Drug: None
Employment: Employed
Family History
Family History: Not pertinent
Allergies / Home Medications
Allergies reflects when Allergies were last updated in [facility].
Home Medications with original date entered in [facility]
Allergy/Medication List:
Allergies
Allergy/AdvReac Type Severity Reaction Status Date / Time
cefazolin Allergy itching, Verified 01/22/25 13:06
angiodemea,
throat
swelling
occurred
10/17/24
iron (From Venofer) Allergy Shortness Verified 01/22/25 13:06
of Breath
kiwi Allergy Anaphylaxis Verified 01/22/25 13:06
Home Medications
escitalopram oxalate 10 mg tablet 10 mg PO QPM Mental Health/Anxiety 04/18/20
pantoprazole 40 mg tablet,delayed release 40 mg PO DAILY Gastrointestinal issue 04/18/20
multivitamin with folic acid 400 mcg tablet (Tab-A-Anna) 1 tab PO HS Supplement 03/31/21
buprenorphine 8 mg-naloxone 2 mg sublingual tablet 0.5 tab sublingual TID Opioid use disorder 02/02/24
calcium carbonate 1,200 mg PO BID Supplement 08/06/24
cholecalciferol (vitamin D3) 125 mcg (5,000 unit) tablet (Vitamin D3) 125 mcg PO DAILY Supplement 08/06/24
magnesium oxide 500 mg capsule 500 mg PO HS Supplement 08/06/24
nicotine 7 mg/24 hr daily transdermal patch 1 patch transdermal Q24H cigarette withdraw 08/06/24
potassium 99 mg tablet 99 mg PO BID Supplement 08/06/24
prednisone 5 mg tablet 6 mg PO HS crohn's disease 08/06/24
cyanocobalamin (vitamin B-12) 1,000 mcg capsule 1,000 mcg PO DAILY #30 caps 08/10/24
calcitriol 0.25 mcg capsule 0.25 mcg PO QPM Kidney Disease 10/16/24
ibuprofen 200 mg tablet 400 mg PO BIDPRN PRN mild pain 10/16/24
Held on 11/21/24. Instructions: Until anemia improves
prednisone 10 mg tablet 8 mg PO DAILY Crohn's disease 10/16/24
levonorgestrel 0.15 mg-ethinyl estradiol 30 mcg tablets,3 mos pack(91) 1 tab PO QPM 11/18/24
apixaban 5 mg tablet (Eliquis) 5 mg PO BID #60 tabs 11/21/24
Review of Systems
-
History Source: Patient
A 12 point ROS was completed and negative except as noted: Yes
Physical Exam
Vital Signs
Vital Signs
Temp Pulse Resp BP Pulse Ox
98.1 F 95 17 114/75 97
01/22/25 13:04 01/22/25 16:45 01/22/25 16:45 01/22/25 16:00 01/22/25 16:45
Physical Exam
General: No Apparent Distress, Comfortable and Conversant
HEENT: NormoCephalic and Anicteric
Respiratory: Clear
Cardiac: S1/S2 and Regular Rhythm
GI: Soft, Non Tender, Non Distended and Normal Bowel Sounds
Musculoskeletal: No Edema
Neuro: AO x 3
Hematologic/Lymphatic: No Lymphadenopathy
Psych: Calm
Laboratory Results
-
01/22/25 22:30
01/22/25 13:13
Laboratory Results
Total Bilirubin 0.1 mg/dl (0.2-1.3) L 01/22/25 13:13
AST 13 U/L (14-36) L 01/22/25 13:13
ALT 13 U/L (0-35) 01/22/25 13:13
Alkaline Phosphatase 45 U/L (38-126) 01/22/25 13:13
Data Reviewed
-
Lab Data: Labs Reviewed by me and Discussed with Physician
Impression/Plan
-
IMPRESSION:
Acute on chronic anemia secondary to Crohn's disease/malabsorption
History of DVT
Anxiety
GERD
History of opiate dependence/abuse
PLAN:
Acute on chronic anemia secondary to Crohn's disease/malabsorption
HB 6.5 on admission
2 units of PRBC
No evidence of active bleeding
Pending iron, ferritin, folate, reticulocyte count, TIBC, B12, vitamin D
Monitor H&H closely
Hold GI consult for now
Continue home dose prednisone and Tremfya
Will continue Eliquis as patient is not actively bleeding and Eliquis is not the cause of anemia.
If stable overnight OK to DC in am with continued outpatient weekly monitoring of HB.
History of DVT
Recent history of left upper and lower extremity DVT
No evidence of active bleeding.
Continue Eliquis
Monitor HH closely
Anxiety
Continue escitalopram
GERD
Continue PPI
History of chron's disease
Continue home dose prednisone
History of opiate dependence/abuse
In remission
Continue Suboxone
Regular diet
Eliquis
Full code
--- NOTE | 2025-01-22 17:21 | W.PN.UPDATE ---
Update Note
Progress Note Update
This is an addendum to H&P written by resident physician Dr. Lora Powell
I saw and examined the patient.
The GUN MECHANIC's note was reviewed and I agree with the note.
Comment:
Ms. Alma Wesley is a 39 yo woman with hx Chron's disease, chronic iron deficiency anemia 2/2 bleeding and malabsorption with prior hospitalizations for Hg < 7, recent outpatient MRA with areas of severe inflammation thought to be source of slow
blood loss with plans for outpatient CRS consult next month sent to the ER for Hg 6.5.
Triage VS: T 98.1, P 105, RR 16, BP 122/74, SpO2 98%
On exam patient is AAO x 3, in no acute distress, abdomen soft, non-tender, no LE swelling.
LABS: WBC 5.2, Hg 6.5, PLT 384, Na 133, K+ 3.5, Cl 110, CO2 20, Cr 0.7, Glucose 96, T. Bili 0.1, AST 13, ALT 13, Alk Phos 45, HCG Negative
Acute on Chronic Anemia
Iron deficiency anemia
Chronic blood loss and Malabsorption in setting of severe Chron's Disease
-iron studies added on to chemistry here
-ordered for 2 units PRBC
-trend Hg
-If stable tomorrow then OK for DC with continued outpatient monitoring (patient follows with Dr. Gross) - I sent Dr. Gross a TT to update on admission
-patient has outpatient follow up with CRS next month
-continue REHABIL[facility]ATION C[facility] MANAGER Prednisone
-*awaiting med rec
Remainder of plan per resident physician's note
[2025-01-22 17:33] LABS: Reticulocyte Count 4.4 % (0.4-2.8)
[2025-01-22 18:20] LABS: Iron 22 ug/dl (37-170)
[2025-01-22 18:29] LABS: Total Iron Binding Capacity 337 ug/dl (265-497)
[2025-01-22 18:39] LABS: Vitamin D, 25-OH*** 18.9 ng/mL (30-80)
[2025-01-22 19:15] LABS: Ferritin 8.4 ng/ml (6.24-137)
[2025-01-22 19:26] LABS: Folate > 20.0 ng/ml (2.76-20); Vitamin B12 > 1000 pg/ml (239-931)
[2025-01-22] MEDS: PROTONIX 40 MG PO (21:14)
[2025-01-22] MEDS: SUBUTEX 4 MG SL (21:15)
[2025-01-22] MEDS: DELTASONE 5 MG PO (21:15)
[2025-01-22] MEDS: ELIQUIS 5 MG PO (21:15)
[2025-01-22] MEDS: VITAMIN D3 (cholecalciferol) 125 MCG PO (21:16)
[2025-01-22] MEDS: NICODERM TRANSDERMAL 7 MG TRANSDERM (22:28)
[2025-01-23 01:11] VITALS: BP 95/54
[2025-01-23 05:11] LABS: Blood Urea Nitrogen 14 mg/dl (7-17); Calcium 7.2 mg/dl (8.4-10.2); Carbon Dioxide 16 mmol/L (22-30); Chloride 114 mmol/L (98-107); Estimated Creatinine Clearance 117 ml/min; Glucose 143 mg/dl (70-99); Potassium 3.7 mmol/L (3.5-5.1); Sodium 136 mmol/L (135-145); eGFR > 60.00
--- NOTE | 2025-01-23 07:11 | W.PN.HOSP.TC ---
Today's Communication/Plan
-
Continue iron infusion as an OPD
Monitor H&H
1pRBC infuse today by given her weakness, fatigue and Chrons disease.
vitamin d2 - 66324 units oral today and scheduled.
Assessment / Plan
Assessment / Plan
39-year-old female with past history of chron's disease, hemorrhoids, iron/B12 deficiency anemia, left upper extremity DVT, chronic lower extremity edema yesterday arrived to the ED because she felt shortness of breath, chest pain, lightheadedness
for the past 1 week and she she experienced this symptoms before whenever her iron levels were low. She used to have regular follow-up with her slot tag inserter at [place], she saw her sprayer hand Dr Richmond at [facility] done blood work on
Monday, and she received a call from her sprayer hand that she should go to hospital due to low hemoglobin 6.5. Abdominal MRI demonstrated 5 areas of inflammation and strictures thought to be source of occult blood, she has upcoming surgery
scheduled with her colorectal surgeon on March 04.
# Acute on chronic Iron deficiency anemia secondary to Crohn's disease/malabsorption
HB 6.5--7.4 low, Iron 22 low, TIBC 337 normal, ferritin 8.4 normal ( iron deficiency anemia)
Her ferritin is low -- iron deficiency anemia
TIBC is in normal level probably secondary to inflammation.
Vitamin B12> 1000 h, folate> 20 high.
2 units of PRBC transfused
No evidence of active bleeding currently
Vitamin D 18.9 low
Monitor H&H closely
Hold GI consult for now
Continue home dose prednisone and Tremfya- Guzelkumab
continue Eliquis as patient is not actively bleeding and Eliquis is not the cause of anemia.
Plan:
Continue iron infusion as an OPD
Monitor H&H
1pRBC infuse today by given her weakness, fatigue and Chrons disease.
#History of DVT
Recent history of left upper and lower extremity DVT
No evidence of active bleeding.
Continue Eliquis
Monitor HH closely
#Anxiety
Continue escitalopram
#GERD
Continue PPI
#History of chron's disease
Continue home dose prednisone
#History of opiate dependence/abuse
In remission
Continue Suboxone
Regular diet
Eliquis
Full code
Anticipated Discharge: 24 - 48 hours
Subjective/Interval History
-
Date of Service: January 23, 2025
39-year-old female with past history of chron's disease, hemorrhoids, iron/B12 deficiency anemia, left upper extremity DVT, chronic lower extremity edema yesterday arrived to the ED because she felt shortness of breath, chest pain, lightheadedness
for the past 1 week and she she experienced this symptoms before whenever her iron levels were low. She used to have regular follow-up with her slot tag inserter at [place], she saw her sprayer hand Dr Richmond at [place] [facility] done blood work on
Monday, and she received a call from her sprayer hand that she should go to hospital due to low hemoglobin 6.5. Abdominal MRI demonstrated 5 areas of inflammation and strictures thought to be source of occult blood, she has upcoming surgery
scheduled with her colorectal surgeon on March 04.
She is a non-smoker nonalcoholic however she is on opioid dependence medication Subutex.
Currently she is taking prednisone 10 mg tablet for Crohn's disease.
Apixaban 5 mg twice a day, oral contraceptives, currently taking vitamin D3 125 mcg, calcium carbonate 1200 mg, calcitriol 0.25 mcg capsule.
Objective Data
-
Labs:
Laboratory Results
01/22/25 01/23/25 01/23/25
18:00 01:00 04:17
WBC Cancelled Pending
Hgb Cancelled Cancelled Pending
Hct Cancelled Cancelled Pending
Plt Count Cancelled Pending
Sodium 136
Potassium 3.7
Chloride 114 H
Carbon Dioxide 16 L
BUN 14
Creatinine 0.5 L
Glucose 143 H
Calcium 7.2 L
Vital Signs:
Vital Signs
Temp Pulse Resp BP Pulse Ox
99.1 F 91 18 95/54 100
01/23/25 01:11 01/23/25 01:11 01/23/25 01:11 01/23/25 01:11 01/22/25 20:34
I&O
01/22/25 01/23/25 01/24/25
06:59 06:59 06:59
Intake Total 500 / 500
Balance 500 / 500
Review of Systems
-
History Source: Patient
All other systems: Reviewed and negative
Physical Exam
-
General: Well Developed
Respiratory: Clear to Auscultation
Cardiac: Regular Rhythm and S1/S2
GI: Soft, Nontender and Nondistended
Genito-urinary: No Costovertebral Tender
Musculoskeletal: No Clubbing, No Cyanosis and Other (Edema present bilateral)
Skin: Warm
Neuro: AO x 3
Hematologic / Lymphatic: No Lymphadenopathy
[2025-01-23 07:30] VITALS: BP 114/68
[2025-01-23] MEDS: SUBUTEX 4 MG SL ×3 (08:09→21:52)
[2025-01-23] MEDS: ELIQUIS 5 MG PO ×2 (08:09→20:36)
[2025-01-23] MEDS: VITAMIN D3 (cholecalciferol) 125 MCG PO ×2 (08:10→20:36)
[2025-01-23] MEDS: PROTONIX 40 MG PO ×2 (08:10→20:36)
[2025-01-23] MEDS: DELTASONE 5 MG PO ×2 (08:10→20:36)
[2025-01-23] MEDS: VITAMIN B-12 2000 MCG PO (08:10)
[2025-01-23 08:28] LABS: Hematocrit 25.3 % (37.0-47.0); Hemoglobin 7.4 g/dL (12.0-16.0); Mean Corp Hgb Conc. 29.2 g/dL (33.0-37.0); Mean Corpuscular Volume 79.6 fL (81.0-99.0); Nucleated Red Blood Cells % 1.1 %; Platelet Count 313 10^3/uL (130-400); Red Cell Dist. Width 17.3 % (11.5-14.5)
[2025-01-23] MEDS: DRISDOL (VITAMIN D2) 50000 UNITS PO (11:14)
--- NOTE | 2025-01-23 11:54 | CON.CRS ---
Consultation
-
Date/Time Consultation Requested: 01/22/2025, 10:41
Date/Time Consultation Performed: 01/23/2025, 08:30
Requesting Provider: Meghan Rader MD
Performing Provider: Shahram Packer MD
Reason for Consultation: crohns
Medical History
-
Chief Complaint: weakness and fatigue
History of Present Illness:
39yo female with a history of Crohns disease since childhood, s/p multiple biologic failures, presents to the hospital complaining of headache, fatigue, and dyspnea. She was seen by her sheet metal engineer earlier this week and had blood work done, which
showed a hemoglobin of 6.5. Due to this finding, she was advised to go to the ER. She does have anal bleeding which occurs about once a week. She will notice it dripping into the toilet as well as on the toilet paper. She denies nausea/vomiting. Her
last BM was yesterday and she has flatus. Denies any abdominal pain. On arrival to the ER, her hemoglobin was 6.5. She was transfused with 2 units of PRBCs. No imaging was performed. She states her last surgery was probably about seven years ago.
She currently follows with a GI doctor who recommended a colorectal surgeon at [facility]. She is currently scheduled to see him on March 04, 2025. She states she has tried 'all the biologics' available except for Tremfya, which she was to start
next week. Due to anemia and history of Crohns, we have been consulted for further surgical opinion.
Past Medical History
Past Medical History: Other (Crohn's disease, hemorrhoids, iron/B12 deficiency anemia, left upper extremity DVT, chronic BROOK)
Past Surgical History: Bowel Resection (5 surgeries due to Crohns in the past at multiple institutions - [facility], [facility] and [facility]. First was age 12/14. )
Social History
Tobacco: Non-Smoker
Alcohol: None
Drug: None
Family History
Family History: Reviewed & Not Pertinent
Allergies / Home Medications
Allergy/AdvReac Type Severity Reaction Status Date / Time
cefazolin Allergy itching, Verified 01/22/25 13:06
angiodemea,
throat
swelling
occurred
10/17/24
iron (From Venofer) Allergy Shortness Verified 01/22/25 13:06
of Breath
kiwi Allergy Anaphylaxis Verified 01/22/25 13:06
�Medication �Instructions �Recorded �Confirmed �Type
escitalopram oxalate 10 mg tablet 10 mg PO QPM Mental Health/Anxiety 04/18/20 01/22/25 History
pantoprazole 40 mg tablet,delayed 40 mg PO BID Gastrointestinal issue 04/18/20 01/22/25 History
release
buprenorphine 8 mg-naloxone 2 mg 0.5 tab sublingual TID Opioid use 02/02/24 01/22/25 History
sublingual tablet disorder
cholecalciferol (vitamin D3) 125 125 mcg PO BID Supplement 08/06/24 01/22/25 History
mcg (5,000 unit) tablet (Vitamin
D3)
magnesium oxide 500 mg capsule 500 mg PO BID Supplement 08/06/24 01/22/25 History
nicotine 7 mg/24 hr daily 1 patch transdermal Q24H cigarette 08/06/24 01/22/25 History
transdermal patch withdraw
potassium 99 mg tablet 99 mg PO BID Supplement 08/06/24 01/22/25 History
prednisone 5 mg tablet 5 mg PO BID crohn's disease 08/06/24 01/22/25 History
calcitriol 0.25 mcg capsule 0.25 mcg PO QPM Kidney Disease 10/16/24 01/22/25 History
levonorgestrel 0.15 mg-ethinyl 1 tab PO QPM 11/18/24 01/22/25 History
estradiol 30 mcg tablets,3 mos
pack(91)
apixaban 5 mg tablet (Eliquis) 5 mg PO BID #60 tabs 11/21/24 01/22/25 Rx
cyanocobalamin (vitamin B-12) 2,000 mcg PO DAILY 01/22/25 01/22/25 History
1,000 mcg capsule
hydrocortisone 2.5 % topical cream 1 applic topical BID PRN CHIN & 01/22/25 01/22/25 History
NOSE IRRITATION
Review of Systems
-
History Source: Patient
Constitutional: Fatigue and Other (headache)
Respiratory: Other (dyspnea)
A 10 point review of systems was completed, and was negative except as per HPI.
Physical Exam
Vital Signs
Temp 99.3 F 01/23/25 07:30
Pulse 93 01/23/25 07:30
Resp Rate 16 01/23/25 07:30
Blood pressure 114/68 01/23/25 07:30
SaO2 98 01/23/25 07:30
01/22/25 01/23/25 01/24/25
06:59 06:59 06:59
Actual Weight 66.395 kg
Body Mass Index (BMI) 23.6
Lab Results / Allergies
01/23/25 04:17
WBC 4.7 10^3/uL (4.8-10.8) L 01/23/25 04:17
Hgb 7.4 g/dL (12.0-16.0) L 01/23/25 04:17
Hct 25.3 % (37.0-47.0) L 01/23/25 04:17
Plt Count 313 10^3/uL (130-400) 01/23/25 04:17
Abs Immat Gran (auto) 0.0 10^3/uL (0-0.05) 01/23/25 04:17
Neutrophils % 76.8 % (42.2-75.2) H 01/23/25 04:17
Allergy/AdvReac Type Severity Reaction Status Date / Time
cefazolin Allergy itching, Verified 01/22/25 13:06
angiodemea,
throat
swelling
occurred
10/17/24
iron (From Venofer) Allergy Shortness Verified 01/22/25 13:06
of Breath
kiwi Allergy Anaphylaxis Verified 01/22/25 13:06
Physical Exam
General: Well Developed, Well Nourished and No Apparent Distress
GI: Non Tender and Non Distended
Skin: Warm and Dry
Neuro: AO x 3
Psych: Calm
Data Reviewed
-
CT Scan: Image Personally Visualized and interpreted, Report Reviewed by me and Discussed with Patient
Labs: Labs Reviewed by me, Discussed with Physician and Discussed with Patient
Old Records: Reviewed
Assessment / Plan
-
Assessment: 39yo female with a history of Crohns disease s/p multiple surgeries, found to have a hemoglobin 6.5 s/p 2 units PRBCs
Plan:
-No plans for surgery during this admission. She has a surgeon at [facility] who she has a consultation with on March 04, 2025.
-Recommend rechecking hemoglobin this afternoon.
-Transfuse per primary team.
-F/u with Dr. Schultz if she decides to pursue treatment at [facility].
-Remains on Eliquis.
[2025-01-23 14:17] VITALS: BP 107/68
[2025-01-23 14:40] VITALS: BP 100/62
[2025-01-23 16:53] VITALS: BP 109/68
--- NOTE | 2025-01-23 16:56 | CM ---
Alert awake oriented patient who lives with her parents Celestine and Ibeth in a 2 story home with 2 steps to enter and 10 steps to bed/bathroom. She is independent in activates of daily living.She does drive .No DME .Pt receiving blood today.
No VN in past . No SNF hx
Pharmacy [facility]
PCP Dr Devi
PLAN Home with no needs
[2025-01-23] MEDS: LEXAPRO 10 MG PO (17:09)
[2025-01-23] MEDS: ROCALTROL 0.25 MCG PO (17:09)
[2025-01-23] MEDS: TORADOL 15 MG IV (17:10)
[2025-01-23] MEDS: NICODERM TRANSDERMAL 7 MG TRANSDERM (21:51)
[2025-01-23] MEDS: BENADRYL 25 MG IV (21:52)
[2025-01-23] MEDS: COMPAZINE 5 MG IV (21:53)
[2025-01-23 22:32] LABS: Hematocrit 28.6 % (37.0-47.0); Hemoglobin 8.7 g/dL (12.0-16.0)
[2025-01-23 23:15] VITALS: BP 102/59
--- NOTE | 2025-01-24 07:13 | W.PN.HOSP.TC ---
Today's Communication/Plan
-
iv iron infusion
discharge her and discuss the results with Dr
Assessment / Plan
Assessment / Plan
39-year-old female with past history of chron's disease, hemorrhoids, iron/B12 deficiency anemia, left upper extremity DVT, chronic lower extremity edema yesterday arrived to the ED because she felt shortness of breath, chest pain, lightheadedness
for the past 1 week and she she experienced this symptoms before whenever her iron levels were low. She used to have regular follow-up with her auto rental supervisor at [place], she saw her vp global marketing [employer] Dr Richmond at [place] done blood work on
Monday, and she received a call from her vp global marketing [employer] that she should go to hospital due to low hemoglobin 6.5. Abdominal MRI demonstrated 5 areas of inflammation and strictures thought to be source of occult blood, she has upcoming surgery
scheduled with her colorectal surgeon on March 04.
# Acute on chronic Iron deficiency anemia secondary to Crohn's disease/malabsorption
hemoglobin improved to 7.4 --8.7--8.4 today
Iron 22 low, TIBC 337 normal, ferritin 8.4 normal ( iron deficiency anemia)
Her ferritin is low -- iron deficiency anemia
TIBC is in normal level probably secondary to inflammation.
Vitamin B12> 1000 h, folate> 20 high.
2 units of PRBC transfused
No evidence of active bleeding currently
Monitor H&H closely
Continue home dose prednisone and Tremfya- Guzelkumab
continue Eliquis as patient is not actively bleeding and Eliquis is not the cause of anemia.
Plan:
Today IV ferrous gluconate infusion started,( patient's allergy history for iron reviewed at her chart)
Continue iron infusion as an OPD
Monitor H&H
s/p 3 pRBC infused by given her weakness, fatigue and Chrons disease.
No evidence of active bleeding and hemorrhoids unlikely related to anemia; can use hydrocortisone 2.5% twice daily if hemorrhoid bleeding worsens. Colorectal surgeon signed off with no acute surgery indications and recommended to follow-up with
surgery at [place].
#History of DVT
Recent history of left upper and lower extremity DVT
No evidence of active bleeding.
Continue Eliquis
Monitor HH closely
# Vitamin D deficiency:
Vitamin D 18.9 low, continue 50,000 vitamin D recommended weekly once
#Anxiety
Continue escitalopram
#GERD
Continue PPI
#History of chron's disease
Continue home dose prednisone
#History of opiate dependence/abuse
In remission
Continue Suboxone
# Discharge plan includes Eliquis, Subutex, calcitriol 50,000 IU weekly, vitamin B12, escitalopram oxalate, oral contraceptives, pantoprazole, prednisone 5 mg twice daily for Crohn's disease.
Regular diet
Eliquis
Full code
Anticipated Discharge: Today
Subjective/Interval History
-
Date of Service: January 24, 2025
Pt received in total 3 units (1 unit yesterday with iron infusion and her hemoglobin improved to 7.4 --8.7--8.4), patient feels better now with no concerns for abdominal pain, bleeding, hematuria, hematochezia, dizziness, shortness of breath. She
has an upcoming appointment in March 04 with colorectal surgeon.
Patient today morning mentioned that she does allergy for all the iron infusions except Venofer ( iron sucrose).
Objective Data
-
Labs:
Laboratory Results
01/23/25 01/24/25
22:18 06:51
WBC Pending
Hgb 8.7 L Pending
Hct 28.6 L Pending
Plt Count Pending
Sodium Pending
Potassium Pending
Chloride Pending
Carbon Dioxide Pending
BUN Pending
Creatinine Pending
Glucose Pending
Calcium Pending
Total Bilirubin Pending
AST Pending
ALT Pending
Alkaline Phosphatase Pending
Vital Signs:
Vital Signs
Temp Pulse Resp BP Pulse Ox
97.9 F 90 16 102/59 95
01/23/25 23:15 01/23/25 23:15 01/23/25 23:15 01/23/25 23:15 01/23/25 23:15
I&O
01/23/25 01/24/25 01/25/25
06:59 06:59 06:59
Intake Total 500 / 500 1450 / 1450
Balance 500 / 500 1450 / 1450
Review of Systems
-
History Source: Patient
All other systems: Reviewed and negative
Physical Exam
-
General: No Apparent Distress
Respiratory: Clear to Auscultation
Cardiac: Regular Rhythm and S1/S2
GI: Soft, Nontender, Nondistended and Other (Incisional scar present)
Genito-urinary: No Costovertebral Tender
Musculoskeletal: No Clubbing and Other (Edema bilateral +)
Neuro: AO x 3
Hematologic / Lymphatic: No Lymphadenopathy
Psych: Calm
[2025-01-24 07:14] VITALS: BP 118/66
[2025-01-24 08:03] LABS: Hematocrit 29.0 % (37.0-47.0); Hemoglobin 8.6 g/dL (12.0-16.0); Mean Corp Hgb Conc. 29.7 g/dL (33.0-37.0); Mean Corpuscular Volume 81.7 fL (81.0-99.0); Platelet Count 320 10^3/uL (130-400); Red Cell Dist. Width 17.5 % (11.5-14.5)
[2025-01-24] MEDS: SUBUTEX 4 MG SL (08:14)
[2025-01-24] MEDS: ELIQUIS 5 MG PO (08:15)
[2025-01-24] MEDS: VITAMIN B-12 2000 MCG PO (08:15)
[2025-01-24] MEDS: PROTONIX 40 MG PO (08:15)
[2025-01-24] MEDS: DELTASONE 5 MG PO (08:15)
[2025-01-24] MEDS: VITAMIN D3 (cholecalciferol) 125 MCG PO (08:15)
[2025-01-24 08:26] LABS: ALT (SGPT) 14 U/L (0-35); AST (SGOT) 13 U/L (14-36); Albumin 2.1 g/dl (3.5-5.0); Alkaline Phosphatase 42 U/L (38-126); Blood Urea Nitrogen 14 mg/dl (7-17); Calcium 7.3 mg/dl (8.4-10.2); Carbon Dioxide 20 mmol/L (22-30); Chloride 111 mmol/L (98-107); Estimated Creatinine Clearance 117 ml/min; Glucose 134 mg/dl (70-99); Potassium 3.8 mmol/L (3.5-5.1); Sodium 136 mmol/L (135-145); Total Protein 4.1 g/dl (6.3-8.2); eGFR > 60.00
[2025-01-24] MEDS: FERRLECIT 110 MG IV (12:38)
--- NOTE | 2025-01-24 15:15 | W.DCSUMMARY ---
Documented by User: Last Rosado MD, Resident 01/24/25 15:34
Discharge Summary
Discharge Data
Date of Admission: 01/22/25
Date of Discharge: 01/24/25
Total time spent discharging patient (in min): 45-minute
-
Pending Results: No
Hospital Course
Discharging Physician : Rafael Chin MD
Last Farmer MD
Disposition : Home
Primary care physician : Dr Petrona Chavarria
Principal Discharge diagnosis :
Acute on chronic iron deficiency anemia secondary to chron's disease.
Chronic Discharge diagnosis :
# History of DVT with no evidence of active bleeding and continued Eliquis.
# Vitamin D deficiency: Vitamin D 18.9 low, patient received 50,000 IU, recommended to continue weekly once regimen.
# Anxiety continued with escitalopram
# Gastroesophageal reflux disease continued with proton pump inhibitors
# History of opioid dependence/abuse in remission continued with Suboxone
Hospital Course :
On 39-year-old female with history of Crohn's disease, hemorrhoids, iron/B12 deficiency anemia, left upper extremity DVT, chronic lower extremity edema on Eliquis presented with hemoglobin 6.5, weakness, fatigue, shortness of breath. She
denied hematochezia, hematuria, melena. At ED she received 2 units of packed RBCs and her hemoglobin improved to 7.4. She felt better and after transfusion she denied the systemic symptoms include chest pain, palpitation, dizziness, fatigue. She
was hemodynamically stable. Colorectal surgeon consulted and recommended to continue regular diet as tolerated, Eliquis, follow-up with surgeon at [facility]. If the patient develop hemorrhoids in future recommended to use hydrocortisone
2.5% twice daily ointment. Before the discharge she received 1 packed of RBCs and her hemoglobin improved to 8.4 along with IV ferrous gluconate transfusion. Recommended to follow-up with screen vent binder, PCP, colorectal surgeon in future within a
week of discharge. Patient was on Eliquis as DVT prophylaxis, regular diet with full code and discharged to home.
IMPORTANT:
If your symptoms worsen when you get home, go to the Emergency Room if you cannot reach a doctor, or call 911
Important imaging findings :
On 01/22 EKG findings:
Vent. Rate : 98 BPM Atrial Rate : 98 BPM
P-R Int : 136 ms QRS Dur : 82 ms
QT Int : 320 ms P-R-T Axes : 74 65 63 degrees
QTcB Int : 408 ms
NORMAL SINUS RHYTHM
NORMAL ECG
WHEN COMPARED WITH ECG OF 16-Oct-2024 10:04,
PREMATURE VENTRICULAR COMPLEXES ARE NO LONGER PRESENT
Procedure findings : None
Discharge Plan
-
Patient Disposition: Home (Routine Discharge)
Discharge Diagnosis/Procedures: Crohn's disease, hemorrhoids, iron/B12 deficiency anemia, left upper extremity DVT, chronic lower extremity edema
Condition: Fair
Diet: As tolerated
Activity: No restrictions
Driving Restrictions: As prior to admission
Bathing Restrictions: None
Instructions: Crohn disease in adults, Dehydration, Adult (DC), Normocytic Normochromic Anemia (DC)
Referrals:
Ashley Melo MD [Active, Hematology / Oncology]
Petrona Chavarria MD [Family Provider, [facility]]
Additional Discharge Medication Instructions: Follow-up with PCP within a week of discharge for CBC, CMP.
Follow-up with [facility] claim analyst within few weeks of discharge.
Follow-up with screen vent binder Dr. Gross at [facility] within few week
Follow-up with colorectal surgeon at [facility] 03/04
Take 1250 mcg vitamin D weekly once
Take Vitamin B12 1000mcg
Reach ER if you experience shortness of breath, dizziness, fatigue
Prescriptions:
New
ergocalciferol (vitamin D2) [Vitamin D2] 1,250 mcg (50,000 unit) Capsule
1,250 mcg PO Q7D@0800 Qty: 10 0RF
Continued
pantoprazole 40 MG tablet,delayed release (DR/EC)
40 mg PO BID
escitalopram oxalate 10 MG tablet
10 mg PO QPM
buprenorphine-naloxone 8-2 mg Tablet, Sublingual
0.5 tab SUBLINGUAL TID
Patient Comments:
11/18/24- no pdmp evidence to show dose increase patient stated she takes this 1.5 tablet tid, pdmp last filled 10/24/24 #45
prednisone 5 mg tablet
5 mg PO BID
potassium 99 mg Tablet
99 mg PO BID
nicotine 7 mg/24 hr Patch 24 Hour
1 patch TRANSDERMAL Q24H
magnesium oxide 500 mg Capsule
500 mg PO BID
cholecalciferol (vitamin D3) [Vitamin D3] 125 mcg (5,000 unit) Tablet
125 mcg PO BID
calcitriol 0.25 mcg capsule
0.25 mcg PO QPM
hydrocortisone 2.5 % Cream
1 applic TOPICAL BID PRN (Reason: CHIN & NOSE IRRITATION)
levonorgestrel-ethinyl estrad 0.15 mg-30 mcg (91) tablets,dose pack,3 month
1 tab PO QPM Qty: 0 0RF
Eliquis 5 mg tablet
5 mg PO BID Qty: 60 0RF
Changed
cyanocobalamin (vitamin B-12) 1,000 mcg capsule
2,000 mcg PO DAILY Qty: 0 0RF
Discharge Orders:
Discharge Patient (As Directed); Ordered 01/24/25
Ordered By: Last Rosado
Discharge Date and Time
Discharge Date/Time: 01/24/25 14:04
Print Language: ROMANSH

Documented by User: Rafael Francois DO 01/24/25 15:37
Discharge Summary
Discharge Data
Date of Admission: 01/22/25
Date of Discharge: 01/24/25
Total time spent discharging patient (in min): 40
Discharge Plan
-
Patient Disposition: Home (Routine Discharge)
Discharge Diagnosis/Procedures: Crohn's disease, hemorrhoids, iron/B12 deficiency anemia, left upper extremity DVT, chronic lower extremity edema
Condition: Fair
Diet: As tolerated
Activity: No restrictions
Driving Restrictions: As prior to admission
Bathing Restrictions: None
Instructions: Crohn disease in adults, Dehydration, Adult (DC), Normocytic Normochromic Anemia (DC)
Referrals:
Ashley Melo MD [Active, Hematology / Oncology]
Petrona Chavarria MD [Family Provider, [facility]]
Additional Discharge Medication Instructions: Follow-up with PCP within a week of discharge for CBC, CMP.
Follow-up with [facility] claim analyst within few weeks of discharge.
Follow-up with screen vent binder Dr. Gross at [facility] within few week
Follow-up with colorectal surgeon at [place] 03/04
Take 1250 mcg vitamin D weekly once
Take Vitamin B12 1000mcg
Reach ER if you experience shortness of breath, dizziness, fatigue
Prescriptions:
New
ergocalciferol (vitamin D2) [Vitamin D2] 1,250 mcg (50,000 unit) Capsule
1,250 mcg PO Q7D@0800 Qty: 10 0RF
Continued
pantoprazole 40 MG tablet,delayed release (DR/EC)
40 mg PO BID
escitalopram oxalate 10 MG tablet
10 mg PO QPM
buprenorphine-naloxone 8-2 mg Tablet, Sublingual
0.5 tab SUBLINGUAL TID
Patient Comments:
11/18/24- no pdmp evidence to show dose increase patient stated she takes this 1.5 tablet tid, pdmp last filled 10/24/24 #45
prednisone 5 mg tablet
5 mg PO BID
potassium 99 mg Tablet
99 mg PO BID
nicotine 7 mg/24 hr Patch 24 Hour
1 patch TRANSDERMAL Q24H
magnesium oxide 500 mg Capsule
500 mg PO BID
cholecalciferol (vitamin D3) [Vitamin D3] 125 mcg (5,000 unit) Tablet
125 mcg PO BID
calcitriol 0.25 mcg capsule
0.25 mcg PO QPM
hydrocortisone 2.5 % Cream
1 applic TOPICAL BID PRN (Reason: CHIN & NOSE IRRITATION)
levonorgestrel-ethinyl estrad 0.15 mg-30 mcg (91) tablets,dose pack,3 month
1 tab PO QPM Qty: 0 0RF
Eliquis 5 mg tablet
5 mg PO BID Qty: 60 0RF
Changed
cyanocobalamin (vitamin B-12) 1,000 mcg capsule
2,000 mcg PO DAILY Qty: 0 0RF
Discharge Orders:
Discharge Patient (As Directed); Ordered 01/24/25
Ordered By: Last Rosado
Discharge Date and Time
Discharge Date/Time: 01/24/25 14:04
Print Language: ROMANSH
--- NOTE | 2025-01-24 15:15 | CM ---
MD entered order for discharge.
Pt agreed with discharge today .
She declined VN need.
IMM reviewed with patient .
PLN home no needs
== END 2025-01-24 14:04 | disposition home or self-care (01) | DRG 812 ==
LOC: 4 EAST ACU 17:34
PROVIDERS: Emergency Medicine; Student in an Organized Health Care Education/Training Program; ADMITTING PHYSICIAN Student in an Organized Health Care Education/Training Program; ATTENDING PHYSICIAN Internal Medicine; EMERGENCY PHYSICIAN Student in an Organized Health Care Education/Training Program; FAMILY PHYSICIAN Family Medicine; OTHER PHYSICIAN Surgery
PROC: 30233N1 Transfusion of Nonautologous Red Blood Cells into Peripheral Vein, Percutaneous Approach (ICD-10-PCS; 2025-01-22)
DX: D50.0 Iron deficiency anemia secondary to blood loss (chronic) (principal); K50.918 Crohn's disease, unspecified, with other complication; K90.9 Intestinal malabsorption, unspecified; D63.8 Anemia in other chronic diseases classified elsewhere; Z86.718 Personal history of other venous thrombosis and embolism; E55.9 Vitamin D deficiency, unspecified; F41.9 Anxiety disorder, unspecified; K21.9 Gastro-esophageal reflux disease without esophagitis; F11.21 Opioid dependence, in remission; K64.9 Unspecified hemorrhoids; D51.9 Vitamin B12 deficiency anemia, unspecified; Z87.891 Personal history of nicotine dependence; Z88.1 Allergy status to other antibiotic agents; Z79.01 Long term (current) use of anticoagulants; E88.09 Other disorders of plasma-protein metabolism, not elsewhere classified
CPT/HCPCS: 80048; 80053; 82306; 82607; 82728; 82746; 83540; 83550; 84703; 85014; 85018; 85025; 85027; 85045; 86850; 86900; 86901; 86920; 86922; 93005; 99285; J2916; P9016

== ENCOUNTER → 2025-02-05 10:08 | Outpatient (REF) | payer MEDICARE, MEDICAID, SELFPAY | LOC: RAD 10:08 | PROVIDERS: ATTENDING PHYSICIAN Nurse Practitioner Adult Health; FAMILY PHYSICIAN Family Medicine | DX: I82.432 Acute embolism and thrombosis of left popliteal vein (principal); I82.442 Acute embolism and thrombosis of left tibial vein; I82.452 Acute embolism and thrombosis of left peroneal vein; I82.532 Chronic embolism and thrombosis of left popliteal vein; I82.622 Acute embolism and thrombosis of deep veins of left upper extremity; I82.A12 Acute embolism and thrombosis of left axillary vein; D50.9 Iron deficiency anemia, unspecified; M79.602 Pain in left arm; R60.0 Localized edema | CPT/HCPCS: 93971 ==